=== PATIENT | male | born 1960 | race Caucasian/White ===

== ENCOUNTER 2019-10-07 09:42 | Outpatient (CLI) | payer OTHER, SELFPAY ==
--- NOTE | 2019-10-07 10:15 | US_ITS ---
WS: [id number] RIGHT UPPER QUADRANT ULTRASOUND HISTORY: RECURRENT PANCREATITIS COMPARISON: None available. Liver: 12.2 cm in length. Normal size and echogenicity with no intrahepatic dilatation. No mass. Gallbladder: Normally distended gallbladder with no stones or wall thickening. CBD: 0.3 cm Pancreas: Normal size and echogenicity. Right kidney: 10.2 cm in length. Normal echogenicity with no mass or hydronephrosis. Aorta and IVC: Unremarkable. No ascites. US/US gall bladder [id number] IMPRESSION: Normal RIGHT upper quadrant ultrasound.
--- NOTE | 2019-10-07 11:00 | MR_ITS ---
WS: [id number] MRCP (MAGNETIC RESONANCE CHOLANGIOPANCREATOGRAPHY) HISTORY: Recurrent pancreatitis. Abdominal pain. COMPARISON: RIGHT upper quadrant ultrasound 10/07/2019. TECHNIQUE: Multiple sequences are performed to evaluate the intra and extrahepatic ducts. Normally distended gallbladder. No filling defects are evident. Common bile duct is well visualized t hroughout its course to the pancreas. Maximum diameter of 5.9 mm. Normal tapering through the ampulla . Cystic duct is also normal size. Common hepatic duct and central biliary ducts are normal. Spleen is not enlarged. Portal vein is patent. No liver mass. No ascites or pleural fluid. Pancreas i s normal. No evidence for pancreatitis. No pseudocyst or pancreatic duct dilatation. MR/MR MRCP [id number] IMPRESSION: 1. Normal MRCP. 2. No intrahepatic or extrahepatic duct dilatation. 3. Normal gallbladder. 4. No pancreatitis.
--- NOTE | 2019-10-07 11:32 | USCV_ITS ---
Lorenzo Nunn Age: 58 Gender: M : 1960 Exam Date: 10/07/2019 11:58 Ordering Phys: Ryan Lew DO Technologist: Jhon Calvillo Exam Location: [facility] [place]_ Indication: LT SIDE BRUIT Risk Factors: Smoker Previous Vascular Surgery: None Right Brachial BP: / Left Brachial BP: / Right Left Velocity (cm/s) Spectral Plaque Velocity (cm/s) Spectral Plaque Syst/Diast Broadening Syst/Diast Broadening 61.70/ 9.90 Prox CCA 57.30 / 12.00 44.40/ 9.40 Mid CCA 64.90 / 14.50 37.20/ 8.50 Distal CCA 50.40 / 10.30 55.50/ 11.10 Prox ICA 59.80 / 17.10 61.50/ 17.10 Mid ICA 66.70 / 18.80 95.70/ 29.90 Distal ICA 70.10 / 20.50 89.70 ECA 74.30 1.55 ICA/CCA 1.08 Antegrade Vertebral Antegrade 59.00/ 13.70 cm/s 41.00/ 12.00 cm/s Bi Subclavian Tri 73.50 67.50 FINDINGS No significant elevation of systolic or diastolic velocities. Waveforms are normal. No significant amount of calcified plaque or intimal thickening identified. CONCLUSIONS Normal carotid doppler ultrasound. Dr. Ирина Irwin DO (Electronically Signed) Final Date: 07 October 2019 16:12 S
== END 2019-10-07 09:43 | disposition home or self-care (01) ==
LOC: RAD 09:45
PROVIDERS: PCP Emergency Medicine Emergency Medical Services; Visit Provider Emergency Medicine Emergency Medical Services
DX: K85.90 Acute pancreatitis without necrosis or infection, unspecified (principal); R07.9 Chest pain, unspecified; R09.89 Other specified symptoms and signs involving the circulatory and respiratory systems
CPT/HCPCS: 74181; 76705; 93880

== ENCOUNTER 2019-12-25 01:53 | Emergency (ER) | payer OTHER, SELFPAY ==
[2019-12-25 02:04] VITALS: BP 146/91; PULSE 68; RESP 20; TEMP 36.8; O2SAT 98; BMI 30.5
--- NOTE | 2019-12-25 04:03 | XRR_ITS ---
PROCEDURE INFORMATION: Exam: XR Left Hand Exam date and time: 12/25/2019 7:10 AM Age: 59 years old Clinical indication: Injury or trauma; Fall; Initial encounter; Dislocation; Severity not specified; Left; Middle finger; Injury date: 12/25/2019 TECHNIQUE: Imaging protocol: XR Left hand. Views: 3 or more views. COMPARISON: No relevant prior studies available. FINDINGS: Bones/joints: No fracture. Currently no dislocation. Soft tissues: There is soft tissue swelling involving the middle finger with what appears to be soft tissue gas between the 3rd and 4th metacarpophalangeal joints. Tiny metallic soft tissue foreign body in the ring finger near the proximal interphalangeal joint. XR/XR hand LT min 3V* [id number] IMPRESSION: 1. No acute fracture or dislocation. 2. Soft tissue swelling and potential soft tissue gas. Any laceration?
[2019-12-25 05:06] VITALS: RESP 16
[2019-12-25] MEDS: fentaNYL 50 mcg/mL INJ 2mL 100 MCG IVP (05:06)
[2019-12-25] MEDS: LORazepam 2 mg/mL INJ 1 mL IVP (05:07)
[2019-12-25 05:09] VITALS: BP 117/67; PULSE 54; RESP 20; O2SAT 90
[2019-12-25 06:01] VITALS: BP 136/77; PULSE 52; RESP 15; O2SAT 100
[2019-12-25] MEDS: lidocaine 1% INJ 20 mL INJECTION (06:47)
[2019-12-25] MEDS: oxyCODONE-APAP 5-325 mg Tablet 1 TAB PO ×2 (08:25→08:26)
[2019-12-25 08:31] VITALS: BP 133/86; PULSE 57; RESP 16; O2SAT 97
--- NOTE | 2019-12-25 21:26 | W.ED.EXTPRO ---
HPI - Extremity Problem General: Chief complaint: Extremity Injury, Upper Stated complaint: left hand lac Time Seen by Provider: 12/25/19 04:24 History of Present Illness: HPI Narrative: 59-year-old male who was trying to get a pig back in the pin, when he injured his left hand, with it being pulled, and cutting it on barbed wire he thinks. He had presented to an outside hospital, and when told that he needed to have an injection, and have the joint reduced and laceration repaired, he decided to leave AGAINST MEDICAL ADVICE there, and presented here. MD Complaint: extremity pain Onset (ago): hour(s) Associated symptoms: Deny chest pain or fever(s) Review of Systems Const: Denies: fever(s) or chills Eyes: Denies: change in vision Card: Denies: chest pain or palpitations Resp: Denies: dyspnea GI: Reports: nausea; Denies: abdominal pain or vomiting Musc: Reports: joint pain Neuro: Reports: numbness in extremities PFS ED PFSH: Medical History (Updated 12/25/19 @ 07:31 by Jose Florian DO) Elevated PSA Erectile disorder, generalized, mild Gastro-esophageal reflux disease without esophagitis History of colon polyps History of upper gastrointestinal bleeding Major depressive disorder, recurrent, unspecified Palmar fascial fibromatosis [dupuytren] Panic disorder Surgical History History of arthroplasty of knee History of colonoscopy 01/19/2019-REPEAT IN 3 YEARS History of nasal septoplasty History of shoulder surgery Family History Other Cancer Diabetes Hypertension Social History Smoking and tobacco status: current every day smoker Alcohol intake: current Household members: spouse Housing: House Marital status: History of recent travel: No Current gender identity: Male Physical Exam Const: COMMON NORMALS: no acute distress EXAM LIMITATIONS: altered mental status (Mildly intoxicated) GENERAL APPEARANCE: in distress and odor of alcohol detected ORIENTATION/CONSCIOUSNESS: Yes awake, Yes oriented to person, Yes oriented to place and Yes oriented to time Chest: COMMONS NORMALS: normal inspection of the chest Resp: COMMON NORMALS: normal respiratory effort, No retractions, No use of accessory muscles and clear to auscultation bilaterally AUSCULTATION: clear to auscultation bilaterally Cardio: COMMON NORMALS: regular rhythm RHYTHM: regular rhythm HEART SOUNDS: no murmurs Extremity: NARRATIVE EXTREMITY EXAM: Left third finger deformity, with laceration to the volar surface near the PIP. Tendon is visible, but does appear intact. On testing full flexion is noted of the DIP independent of the PIP. PIP flexion is also noted to be intact. Bleeding controlled. Neuro: SENSORIUM/ORIENTATION: Yes oriented to person, Yes oriented to place and Yes oriented to time Procedures Laceration Laceration 1: Site: hand (Left ring finger) Side (If applicable): left Size (cm): 2.5 Description: linear Depth: simple, single layer Pre-repair: wound explored, irrigated extensively and deep structures intact Skin layer closed with: nylon Size (cm): 4-0 Number of sutures: 5 Technique: simple, interrupted Orthopedic Joint Reduction Joint #1: Side: left Joint Reduction Location: finger (Ring finger PIP) Analgesia: nerve block Local Anesthesia: lidocaine 1% and bupivacaine 0.25% Amount of anesthesic used (mL): 6 Technique used: traction/counter-traction Post-reduction neuro exam: intact Post-reduction vascular: intact Post Reduction X-Ray Obtained: Yes Post Reduction X-Ray Results: reduced Splint Applied: Yes Patient Tolerated Procedure: well and no complications Course Vital Signs: Vital signs: Vital Signs Temperature 98.3 F 12/25/19 02:04 Pulse Rate 57 L 12/25/19 08:31 Respiratory Rate 16 12/25/19 08:31 Blood Pressure 133/86 12/25/19 08:31 Pulse Oximetry 97 12/25/19 08:31 MDM - Extremity (Nontraumatic) [facility] Narrative: Medical decision making narrative: Left ring finger PIP is reduced appropriately, postreduction film confirms. Patient has intact flexion of both flexor digitorum fundus and superficialis on exam. Tendon is examined and appears taut. Wound is closed. He was given Ancef here. He says his tetanus is up-to-date. The patient's finger is placed in an extension block splint compatible with PIP dislocation treatment. Discharge Plan Discharge Patient Disposition: Home, Self-Care Clinical Impression: Dislocation of finger Qualifiers: Encounter type: initial encounter Qualified Code(s): S63.259A - Unspecified dislocation of unspecified finger, initial encounter Laceration of finger Qualifiers: Encounter type: initial encounter Finger: middle finger Damage to nail status: without damage Foreign body presence: without foreign body Laterality: left Qualified Code(s): S61.213A - Laceration without foreign body of left middle finger without damage to nail, initial encounter Condition: Stable Prescriptions: New Percocet 5-325 mg tablet 1 tab PO Q6H PRN (Reason: pain) Qty: 10 RF: 0 No Action amlodipine 5 mg tablet 5 mg PO DAILY RF: 0 losartan 25 mg tablet 25 mg PO DAILY RF: 0 pantoprazole 40 mg tablet,delayed release (DR/EC) 40 mg PO DAILY RF: 0 Discharge Orders: Discharge Order (Routine); Ordered 12/25/19 Ordered By: Jose Florian Referrals: Ryan Lew DO [Primary Care Provider] - Andrew Engle MD [Physician] - 4-7 days Discharge Diet: Usual diet Discharge Activity: Limit activity as instructed Patient Instructions: Finger Laceration (ED), Finger Dislocation (ED) Activity Restrictions/Additional Instructions: Call the orthopedic clinic Friday for a follow-up appointment. Stay in your splint until evaluated by them. Return for increasing swelling, drainage, fever, other concerning symptoms. Discharge Date/Time: 12/25/19 08:37 Coding Level of Care Code ED [employer] for Terrie Calhoun
--- NOTE | 2019-12-28 10:53 | DCPLANNER ---
Addendum entered by Marah Dover 12/28/19 11:07: Patient has [employer] [facility], case management specialist called [facility], let her know that patient was seen in the ED and that patient needs a referral to ortho. The referral has been placed, no appointment at this time. Original Note: purchasing manager had message to schedule a follow up appointment for patient with ortho. purchasing manager called the ortho clinic, spoke with Pat, gave clinic patients information. purchasing manager was told that patients information would be printed and reviewed. Clinic will call patient with appointment information.
--- NOTE | 2019-12-30 08:35 | DCPLANNER ---
Patient has a follow up appointment scheduled for Saturday, January 04, [address] at 9:[address] Engle. Clinic will call patient with appointment information.
--- NOTE | 2020-01-05 15:16 | DCPLANNER ---
Patient did attend appointment scheduled for 01.04.20 with ortho.
== END 2019-12-25 08:37 | disposition home or self-care (01) ==
PROVIDERS: Emergency Provider Emergency Medicine; PCP Emergency Medicine Emergency Medical Services
DX: S61.213A Laceration without foreign body of left middle finger without damage to nail, initial encounter (principal); S61.215A Laceration without foreign body of left ring finger without damage to nail, initial encounter; S63.285A Dislocation of proximal interphalangeal joint of left ring finger, initial encounter; W26.8XXA Contact with other sharp object(s), not elsewhere classified, initial encounter; F17.210 Nicotine dependence, cigarettes, uncomplicated
CPT/HCPCS: 12001; 12345; 26770; 73130; 96365; 96375; 99283; 99284; J0690; J2001; J2060; J3010; J3490

== ENCOUNTER → 2020-01-04 09:41 | Outpatient (BNVA) | payer OTHER, SELFPAY | PROVIDERS: PCP Emergency Medicine Emergency Medical Services; Referring Provider Emergency Medicine; Visit Provider Orthopaedic Surgery | DX: S61.213A Laceration without foreign body of left middle finger without damage to nail, initial encounter (principal); S63.259A Unspecified dislocation of unspecified finger, initial encounter; X58.XXXA Exposure to other specified factors, initial encounter | CPT/HCPCS: 73130 ==

== ENCOUNTER 2020-02-15 10:26 | Outpatient (RCR) | payer OTHER, SELFPAY | END 2020-02-21 23:59 | disposition home or self-care (01) | LOC: SOT 10:26 | PROVIDERS: PCP Emergency Medicine Emergency Medical Services; Referring Provider Emergency Medicine Emergency Medical Services; Visit Provider Emergency Medicine Emergency Medical Services | DX: S63.259D Unspecified dislocation of unspecified finger, subsequent encounter (principal) | CPT/HCPCS: 97110; 97165 ==

== ENCOUNTER 2020-02-22 06:00 | Outpatient (RCR) | payer OTHER, SELFPAY | END 2020-03-22 23:59 | disposition home or self-care (01) | LOC: SOT 06:00 | PROVIDERS: PCP Emergency Medicine Emergency Medical Services; Referring Provider Emergency Medicine Emergency Medical Services; Visit Provider Emergency Medicine Emergency Medical Services | DX: S63.259D Unspecified dislocation of unspecified finger, subsequent encounter (principal) | CPT/HCPCS: 97035; 97110 ==

== ENCOUNTER 2020-03-23 06:00 | Outpatient (RCR) | payer OTHER, SELFPAY | END 2020-04-22 23:59 | disposition home or self-care (01) | LOC: SOT 06:00 | PROVIDERS: PCP Emergency Medicine Emergency Medical Services; Referring Provider Emergency Medicine Emergency Medical Services; Visit Provider Emergency Medicine Emergency Medical Services | DX: S63.259D Unspecified dislocation of unspecified finger, subsequent encounter (principal) | CPT/HCPCS: 97035; 97110 ==

== ENCOUNTER → 2020-05-01 11:56 | Outpatient (BNVA) | payer OTHER, SELFPAY | PROVIDERS: PCP Emergency Medicine Emergency Medical Services; Visit Provider Orthopaedic Surgery | DX: M65.342 Trigger finger, left ring finger (principal); M65.332 Trigger finger, left middle finger; M79.642 Pain in left hand | CPT/HCPCS: 73130 ==

== ENCOUNTER 2020-08-14 05:20 | Emergency (ER) | payer OTHER, SELFPAY ==
[2020-08-14] VITALS (7 sets, daily range): BP systolic 114–129; BP diastolic 66–82; PULSE 55–66; RESP 16–18; TEMP 36.9; O2SAT 92–99; BMI 30.5
--- NOTE | 2020-08-14 05:26 | W.ED.FALL ---
Documented by User: Jose Florian DO 08/14/20 06:13 HPI - Fall General: Chief Complaint: Fall Stated Complaint: FALL Time Seen by Provider: 08/14/20 05:22 History of Present Illness: HPI Narrative: 59-year-old male presents to the ER this morning after 2 falls. The first was a week ago on Friday when he slipped on the ice. The second was last evening, when he slipped on/and ice again. This time he injured his right hip and pelvis, is having trouble bearing weight, and is having significant pain from the posterior pelvis radiating into the right groin. He denies any significant low back pain or tenderness. He did bump his forehead when he fell as well and has some swelling. He did not lose consciousness. He was able to bear weight, although with significant pain with a walker. MD complaint: fall Onset (ago): hour(s) Fall from: standing Fall witnessed: no Place fall occurred: home Loss of consciousness: None Prolonged down time: no Symptoms prior to fall: none Context: tripped/slipped Location of injury: head and pelvis Severity: moderate Quality: sharp and stabbing Associated symptoms-after fall: Reports difficulty walking; Denies chest pain, confusion, headache(s), lightheadedness or neck pain Review of Systems Const: Denies: fever(s) Card: Denies: chest pain or lightheadedness Resp: Denies: dyspnea Musc: Denies: neck pain Neuro: Reports: difficulty walking; Denies: headache(s) or confusion PFS ED PFSH: Medical History (Updated 08/14/20 @ 09:39 by Chuckie Miramontes DO) Elevated PSA Erectile disorder, generalized, mild Gastro-esophageal reflux disease without esophagitis History of colon polyps History of upper gastrointestinal bleeding Major depressive disorder, recurrent, unspecified Palmar fascial fibromatosis [dupuytren] Panic disorder Surgical History History of arthroplasty of knee History of colonoscopy 01/19/2019-REPEAT IN 3 YEARS History of nasal septoplasty History of shoulder surgery Family History Other Cancer Diabetes Hypertension Social History Smoking and tobacco status: current every day smoker Alcohol intake: current Household members: spouse Housing: House Marital status: History of recent travel: No Current gender identity: Male Physical Exam Const: COMMON NORMALS: no acute distress HENMT: COMMON NORMALS: Normal external nose present HEAD & SCALP: contusion (Small area of ecchymosis and swelling to the right frontal forehead) FACE & SINUS: face symmetric NOSE: Normal external nose present GENERAL EAR: hearing grossly impaired (Chronic hearing loss) Eye: COMMON NORMALS: Equal, round and reactive pupils present and EOMs intact bilaterally PUPIL: Yes Equal, round and reactive pupils present Chest: COMMONS NORMALS: normal inspection of the chest Resp: COMMON NORMALS: normal respiratory effort, No retractions, No use of accessory muscles and clear to auscultation bilaterally AUSCULTATION: clear to auscultation bilaterally Cardio: COMMON NORMALS: regular rate and regular rhythm; negative for No murmurs present (Cardio) RATE: regular rate RHYTHM: regular rhythm GI: COMMON NORMALS: Normal to inspection, nondistended, normoactive bowel sounds present, Soft to palpation and non-tender PALPATION: Yes Soft to palpation Back/Pelvis: LUMBAR SPINE/LOWER BACK: Yes normal to inspection, No lumbar spinal tenderness and No paraspinal muscle tenderness SACROILIAC JOINTS: Yes SI joint(s) abnormal SI joint details: tender to palpation (Right) Extremity: NARRATIVE EXTREMITY EXAM: Exam of the right lower extremity reveals tenderness over the anterior right hip as well as the posterior right hip. There is pain on logroll testing. There is pain with passive flexion of the hip. All localized to the groin. Course Vital Signs: Vital signs: Vital Signs Temperature 98.4 F 08/14/20 05:20 Pulse Rate 60 08/14/20 07:30 Respiratory Rate 17 08/14/20 07:00 Blood Pressure 129/82 08/14/20 08:00 Pulse Oximetry 92 08/14/20 07:30 MDM - Fall MDM Narrative: Medical decision making narrative: X-rays of the right hip with pelvis do not show an overt fracture. There are some cortical irregularity of the right femoral neck and acetabular rim that is mildly suspicious given the amount of pain the patient has with movement. Because of this, we will CT the hip and pelvis. Also because of the head injury with swelling, will CT the patient's head. Patient will be checked out to Dr. Miramontes at shift change for follow-up on the studies and disposition. Lab Data: Labs: Lab Results 08/14/20 08/14/20 08/14/20 Range/Units 05:23 05:23 05:23 WBC 7.0 (4.0-10.0) 10^3/ uL RBC 4.86 (4.1-5.3) 10^6/u L Hgb 16.3 (11.7-16.6) g/dL Hct 47.8 (42.0-52.0) % MCV 98.4 H (80-94) fL MCH 33.5 (28.0-34.0) pg MCHC 34.1 (30.0-36.0) g/dL RDW 14.0 (12.1-15.1) % Plt Count 246 (130-400) 10^3/c mm MPV 9.5 (7.4-10.4) fL Neut % (Auto) 58.6 % Lymph % (Auto) 30.2 % [place] % (Auto) 9.6 % Eos % (Auto) 1.1 % Baso % (Auto) 0.4 % Neut # (Auto) 4.09 (1.8-7.7) 10^3/u L Lymph # (Auto) 2.1 (0.8-4.8) 10^3/u L [place] # (Auto) 0.7 (0.2-0.9) 10^3/u L Eos # (Auto) 0.1 (0.0-0.8) 10^3/u L Baso # (Auto) 0.0 (0.0-0.1) 10^3/u L Nucleated RBC % (a uto) 0 % Nucleated RBCs # 0.0 /100WBC PT 15.00 H (12.1-14.9) SECO NDS INR 1.14 (0.8-1.2) APTT 30.2 (23.9-36.7) SECO NDS Sodium 134 L (136-145) mmol/L Potassium 3.1 L (3.5-5.1) mmol/L Chloride 92 L (98-107) mmol/L Carbon Dioxide 29 (22-29) mmol/L Anion Gap 16.1 (5-19) BUN 8 (8-23) mg/dL Creatinine 0.9 (0.7-1.2) mg/dL GFR Calculation 86.1 L (90-130) mL/min Glucose 106 (65-115) mg/dL Calculated Osmolal ity 277 L (285-295) mOsm/k g Calcium 9.0 (8.5-10.5) mg/dL Total Bilirubin 0.6 (0.15-1.2) mg/dL AST 19 (0-40) U/L ALT 12 (0-41) U/L Alkaline Phosphata se 81 (40-130) IU/L Total Protein 8.5 (6.6-8.7) g/dL Albumin 4.5 (3.5-5.2) g/dL Globulin 4.0 (1.3-4.6) g/dL Urine Color (Yellow) Urine Appearance (CLEAR) Urine pH (5-7) Ur Specific Gravit y (1.005-1.030) Urine Protein (Negative) Urine Glucose (UA) (Normal) Urine Ketones (Negative) Urine Blood (Negative) Urine Nitrate (Negative) Urine Bilirubin (Negative) Urine Urobilinogen (Negative) mg/dL Ur Leukocyte Cathleen ase (Negative) 08/14/20 Range/Units 08:15 WBC (4.0-10.0) 10^3/ uL RBC (4.1-5.3) 10^6/u L Hgb (11.7-16.6) g/dL Hct (42.0-52.0) % MCV (80-94) fL MCH (28.0-34.0) pg MCHC (30.0-36.0) g/dL RDW (12.1-15.1) % Plt Count (130-400) 10^3/c mm MPV (7.4-10.4) fL Neut % (Auto) % Lymph % (Auto) % [place] % (Auto) % Eos % (Auto) % Baso % (Auto) % Neut # (Auto) (1.8-7.7) 10^3/u L Lymph # (Auto) (0.8-4.8) 10^3/u L [place] # (Auto) (0.2-0.9) 10^3/u L Eos # (Auto) (0.0-0.8) 10^3/u L Baso # (Auto) (0.0-0.1) 10^3/u L Nucleated RBC % (a uto) % Nucleated RBCs # /100WBC PT (12.1-14.9) SECO NDS INR (0.8-1.2) APTT (23.9-36.7) SECO NDS Sodium (136-145) mmol/L Potassium (3.5-5.1) mmol/L Chloride (98-107) mmol/L Carbon Dioxide (22-29) mmol/L Anion Gap (5-19) BUN (8-23) mg/dL Creatinine (0.7-1.2) mg/dL GFR Calculation (90-130) mL/min Glucose (65-115) mg/dL Calculated Osmolal ity (285-295) mOsm/k g Calcium (8.5-10.5) mg/dL Total Bilirubin (0.15-1.2) mg/dL AST (0-40) U/L ALT (0-41) U/L Alkaline Phosphata se (40-130) IU/L Total Protein (6.6-8.7) g/dL Albumin (3.5-5.2) g/dL Globulin (1.3-4.6) g/dL Urine Color Yellow (Yellow) Urine Appearance Clear (CLEAR) Urine pH 5 (5-7) Ur Specific Gravit y 1.010 (1.005-1.030) Urine Protein Neg (Negative) Urine Glucose (UA) Norm (Normal) Urine Ketones Negative (Negative) Urine Blood Neg (Negative) Urine Nitrate Negative (Negative) Urine Bilirubin Neg (Negative) Urine Urobilinogen Norm (Negative) mg/dL Ur Leukocyte Cathleen ase Negative (Negative) Discharge Plan Discharge Patient Disposition: Home Clinical Impression: Fall, Retroperitoneal bleed Condition: Stable Prescriptions: New tizanidine 4 mg capsule 4 mg PO Q6H PRN (Reason: muscle spasticity) Qty: 20 RF: 0 No Action amlodipine 5 mg tablet 5 mg PO DAILY RF: 0 losartan 25 mg tablet 25 mg PO DAILY RF: 0 pantoprazole 40 mg tablet,delayed release (DR/EC) 40 mg PO DAILY RF: 0 Percocet 5-325 mg tablet 1 tab PO Q6H PRN (Reason: pain) Qty: 10 RF: 0 Discharge Orders: Discharge ED (Routine); Ordered 08/14/20 Ordered By: Chuckie Miramontes Referrals: Ryan Lew DO [Primary Care Provider] - Discharge Diet: Usual diet Discharge Activity: Increase activity as tolerated Patient Instructions: Opioid Safety Activity Restrictions/Additional Instructions: With your primary care doctor or with the walk-in clinic tomorrow. Return if you have any lightheadedness dizziness or worsening back pain. Sign Out Sign Out Data: Patient Sign Out occurred on 08/14/20 at 07:01. Patient's care was discussed, and care was transferred from to Chuckie Miramontes DO. Coding Level of Care Code ED Technical Publications Writer for Chg Fwd Exam Comprehensive Documented by User: Chuckie Miramontes DO 08/14/20 09:47 HPI - Fall General: Chief Complaint: Fall Stated Complaint: FALL Time Seen by Provider: 08/14/20 05:22 [facility] ED PFSH: Medical History (Updated 08/14/20 @ 09:39 by Chuckie Miramontes DO) Elevated PSA Erectile disorder, generalized, mild Gastro-esophageal reflux disease without esophagitis History of colon polyps History of upper gastrointestinal bleeding Major depressive disorder, recurrent, unspecified Palmar fascial fibromatosis [dupuytren] Panic disorder Surgical History History of arthroplasty of knee History of colonoscopy 01/19/2019-REPEAT IN 3 YEARS History of nasal septoplasty History of shoulder surgery Family History Other Cancer Diabetes Hypertension Social History Smoking and tobacco status: current every day smoker Alcohol intake: current Household members: spouse Housing: House Marital status: History of recent travel: No Current gender identity: Male Course Vital Signs: Vital signs: Vital Signs Temperature 98.4 F 08/14/20 05:20 Pulse Rate 60 08/14/20 07:30 Respiratory Rate 17 08/14/20 07:00 Blood Pressure 129/82 08/14/20 08:00 Pulse Oximetry 92 08/14/20 07:30 MDM - Fall MDM Narrative: Medical decision making narrative: There assumed a change of shift there is concern about right hip pain radiating to his back CT of his hip and pelvis showed a retroperitoneal bleed. Full CT abdomen and pelvis was done showed a mild intramuscular retroperitoneal bleed without significant layering or hematocrit sign. The hemoglobin is stable slightly elevated even. Patient's initial fall was over a week ago. We will discharge him home he already has Percocet that he has been prescribed previously for pain he can use that gave him tizanidine to use as well recheck hemoglobin tomorrow either with his primary care or at the walk-in clinic return if has any worsening problems lightheadedness dizziness or any orthostasis. Lab Data: Labs: Lab Results 08/14/20 08/14/20 08/14/20 Range/Units 05:23 05:23 05:23 WBC 7.0 (4.0-10.0) 10^3/ uL RBC 4.86 (4.1-5.3) 10^6/u L Hgb 16.3 (11.7-16.6) g/dL Hct 47.8 (42.0-52.0) % MCV 98.4 H (80-94) fL MCH 33.5 (28.0-34.0) pg MCHC 34.1 (30.0-36.0) g/dL RDW 14.0 (12.1-15.1) % Plt Count 246 (130-400) 10^3/c mm MPV 9.5 (7.4-10.4) fL Neut % (Auto) 58.6 % Lymph % (Auto) 30.2 % [place] % (Auto) 9.6 % Eos % (Auto) 1.1 % Baso % (Auto) 0.4 % Neut # (Auto) 4.09 (1.8-7.7) 10^3/u L Lymph # (Auto) 2.1 (0.8-4.8) 10^3/u L [place] # (Auto) 0.7 (0.2-0.9) 10^3/u L Eos # (Auto) 0.1 (0.0-0.8) 10^3/u L Baso # (Auto) 0.0 (0.0-0.1) 10^3/u L Nucleated RBC % (a uto) 0 % Nucleated RBCs # 0.0 /100WBC PT 15.00 H (12.1-14.9) SECO NDS INR 1.14 (0.8-1.2) APTT 30.2 (23.9-36.7) SECO NDS Sodium 134 L (136-145) mmol/L Potassium 3.1 L (3.5-5.1) mmol/L Chloride 92 L (98-107) mmol/L Carbon Dioxide 29 (22-29) mmol/L Anion Gap 16.1 (5-19) BUN 8 (8-23) mg/dL Creatinine 0.9 (0.7-1.2) mg/dL GFR Calculation 86.1 L (90-130) mL/min Glucose 106 (65-115) mg/dL Calculated Osmolal ity 277 L (285-295) mOsm/k g Calcium 9.0 (8.5-10.5) mg/dL Total Bilirubin 0.6 (0.15-1.2) mg/dL AST 19 (0-40) U/L ALT 12 (0-41) U/L Alkaline Phosphata se 81 (40-130) IU/L Total Protein 8.5 (6.6-8.7) g/dL Albumin 4.5 (3.5-5.2) g/dL Globulin 4.0 (1.3-4.6) g/dL Urine Color (Yellow) Urine Appearance (CLEAR) Urine pH (5-7) Ur Specific Gravit y (1.005-1.030) Urine Protein (Negative) Urine Glucose (UA) (Normal) Urine Ketones (Negative) Urine Blood (Negative) Urine Nitrate (Negative) Urine Bilirubin (Negative) Urine Urobilinogen (Negative) mg/dL Ur Leukocyte Cathleen ase (Negative) 08/14/20 Range/Units 08:15 WBC (4.0-10.0) 10^3/ uL RBC (4.1-5.3) 10^6/u L Hgb (11.7-16.6) g/dL Hct (42.0-52.0) % MCV (80-94) fL MCH (28.0-34.0) pg MCHC (30.0-36.0) g/dL RDW (12.1-15.1) % Plt Count (130-400) 10^3/c mm MPV (7.4-10.4) fL Neut % (Auto) % Lymph % (Auto) % [place] % (Auto) % Eos % (Auto) % Baso % (Auto) % Neut # (Auto) (1.8-7.7) 10^3/u L Lymph # (Auto) (0.8-4.8) 10^3/u L [place] # (Auto) (0.2-0.9) 10^3/u L Eos # (Auto) (0.0-0.8) 10^3/u L Baso # (Auto) (0.0-0.1) 10^3/u L Nucleated RBC % (a uto) % Nucleated RBCs # /100WBC PT (12.1-14.9) SECO NDS INR (0.8-1.2) APTT (23.9-36.7) SECO NDS Sodium (136-145) mmol/L Potassium (3.5-5.1) mmol/L Chloride (98-107) mmol/L Carbon Dioxide (22-29) mmol/L Anion Gap (5-19) BUN (8-23) mg/dL Creatinine (0.7-1.2) mg/dL GFR Calculation (90-130) mL/min Glucose (65-115) mg/dL Calculated Osmolal ity (285-295) mOsm/k g Calcium (8.5-10.5) mg/dL Total Bilirubin (0.15-1.2) mg/dL AST (0-40) U/L ALT (0-41) U/L Alkaline Phosphata se (40-130) IU/L Total Protein (6.6-8.7) g/dL Albumin (3.5-5.2) g/dL Globulin (1.3-4.6) g/dL Urine Color Yellow (Yellow) Urine Appearance Clear (CLEAR) Urine pH 5 (5-7) Ur Specific Gravit y 1.010 (1.005-1.030) Urine Protein Neg (Negative) Urine Glucose (UA) Norm (Normal) Urine Ketones Negative (Negative) Urine Blood Neg (Negative) Urine Nitrate Negative (Negative) Urine Bilirubin Neg (Negative) Urine Urobilinogen Norm (Negative) mg/dL Ur Leukocyte Cathleen ase Negative (Negative) Discharge Plan Discharge Patient Disposition: Home Clinical Impression: Fall, Retroperitoneal bleed Condition: Stable Prescriptions: New tizanidine 4 mg capsule 4 mg PO Q6H PRN (Reason: muscle spasticity) Qty: 20 RF: 0 No Action amlodipine 5 mg tablet 5 mg PO DAILY RF: 0 losartan 25 mg tablet 25 mg PO DAILY RF: 0 pantoprazole 40 mg tablet,delayed release (DR/EC) 40 mg PO DAILY RF: 0 Percocet 5-325 mg tablet 1 tab PO Q6H PRN (Reason: pain) Qty: 10 RF: 0 Discharge Orders: Discharge ED (Routine); Ordered 08/14/20 Ordered By: Chuckie Miramontes Referrals: Ryan Lew DO [Primary Care Provider] - Discharge Diet: Usual diet Discharge Activity: Increase activity as tolerated Patient Instructions: Opioid Safety Activity Restrictions/Additional Instructions: With your primary care doctor or with the walk-in clinic tomorrow. Return if you have any lightheadedness dizziness or worsening back pain. Sign Out Sign Out Data: Patient Sign Out occurred on 08/14/20 at 07:01. Patient's care was discussed, and care was transferred from to Chuckie Miramontes DO. Coding Level of Care Code ED Technical Publications Writer for Chg Fwd Exam Comprehensive
--- NOTE | 2020-08-14 05:42 | XR_ITS ---
WS: [id number] Exam: XR hip RT 2-3V wo/w pel* [id number] Date/Time of Exam: 08/14/2020 5:42 AM Reason For Exam: fall. with AP pelvis plz No acute fracture or dislocation. Mild to moderate DJD. Normal soft tissues. XR/XR hip RT 2-3V wo/w pel* [id number] IMPRESSION: 1. Mild to moderate DJD. No fracture.
--- NOTE | 2020-08-14 06:10 | CTR_ITS ---
PROCEDURE INFORMATION: Exam: CT Pelvis Without Contrast; Skeletal Exam date and time: 08/14/2020 6:14 AM Age: 59 years old Clinical indication: Pain and injury or trauma; Fall; Blunt trauma (contusions or hematomas); Right hip; Injury date: 08/13/20; Injury details: RT hip pain TECHNIQUE: Imaging protocol: Computed tomography images of the pelvis without contrast. Exam focused on the skeletal structures. Radiation optimization: All CT scans at this facility use at least one of these dose optimization techniques: automated exposure control; mA and/or kV adjustment per patient size (includes targeted exams where dose is matched to clinical indication); or iterative reconstruction. COMPARISON: CR XR hip RT 2-3V wo/w pel* [id number] 08/14/2020 5:40 AM RADIATION DOSE METRICS: Total DLP (mGy-cm): 888.04 FINDINGS: Bones/joints: Mild degenerative changes are noted. No acute fracture. No dislocation. Soft tissues: The right psoas muscle is thickened and hyperdense with surrounding infiltration of the retroperitoneal fat. The prostate is enlarged projecting into the bladder base. CT/CT pelvis wo con [id number] IMPRESSION: No fracture or subluxation is seen. Retroperitoneal and right psoas muscle hemorrhage is present. The upper extent is not included on this examination. Radiation Dose CTDIVOL = (mGy): DLP = 888.04 (mGy-cm)
--- NOTE | 2020-08-14 06:10 | CTR_ITS ---
PROCEDURE INFORMATION: Exam: CT Head Without Contrast Exam date and time: 08/14/2020 6:14 AM Age: 59 years old Clinical indication: Injury or trauma; Fall; Blunt trauma (contusions or hematomas) TECHNIQUE: Imaging protocol: Computed tomography of the head without contrast. Radiation optimization: All CT scans at this facility use at least one of these dose optimization techniques: automated exposure control; mA and/or kV adjustment per patient size (includes targeted exams where dose is matched to clinical indication); or iterative reconstruction. COMPARISON: No relevant prior studies available. RADIATION DOSE METRICS: Total DLP (mGy-cm): 744.16 FINDINGS: Brain: Normal. No hemorrhage. Unremarkable white matter. No mass effect. Cerebral ventricles: No ventriculomegaly. Bones/joints: Unremarkable. No acute fracture. Paranasal sinuses: Visualized sinuses are unremarkable. No fluid levels. Mastoid air cells: Visualized mastoid air cells are well aerated. Soft tissues: Right frontal scalp swelling is noted. CT/CT head wo con* [id number] IMPRESSION: No acute intracranial abnormality. Radiation Dose CTDIVOL = (mGy): DLP = 744.16 (mGy-cm)
[2020-08-14] MEDS: morphine 4 mg/mL SDV 1 mL IVP (06:40)
--- NOTE | 2020-08-14 06:53 | CT_ITS ---
WS: [id number] CT ABDOMEN PELVIS TECHNIQUE: Contrast-enhanced CT of the abdomen and pelvis with coronal and sagittal reformatted image s. CLINICAL INFORMATION: abd pain, retroperitoneal bleed COMPARISON: CT pelvis earlier today DLP: 1655.[address] scans at [facility] use at least one of these dose optimization techniques: automat ed exposure control; mA and/or kV adjustment per patient size (includes targeted exams where dose is matched to clinical indication); or iterative reconstruction. FINDINGS: Again seen is the right retroperitoneal hemorrhage involving the right psoas with intramuscular hemor rhage and edema. Small amount of surrounding blood products extend to the level of the right kidney c ephalad and into the right pelvis caudally. This is unchanged in appearance since earlier today. Mild diffuse fatty infiltration of the liver. Normal gallbladder. Normal pancreas. Normal abdominal a holli. Adrenal glands are normal. No hydronephrosis. Normal renal parenchymal enhancement. Shotty adam aortic lymph nodes. Sigmoid diverticulosis. No evidence of acute diverticulitis. Normal appendix. Heterogeneous nodular e nhancement the prostate measuring 4.4 x 5.4 CM. Subsegmental atelectasis in the lung bases. CT/CT abdomen pelvis w con* [id number] IMPRESSION: 1. Right retroperitoneal hematoma with intramuscular psoas hemorrhage. This ex tends from the level of the right kidney into the pelvis. This is stable in ray earance since earlier today. 2. Mild diffuse fatty infiltration liver. 3. Normal renal parenchymal enhancement. No hydronephrosis. 4. Normal caliber abdominal aorta. 5. Enlarged heterogeneous enhancing nodular prostate. Recommend correlation JAVAN Avila Notified Chuckie Miramontes DO at 08/14/2020 9:06 AM.
[2020-08-14 07:57] LABS: Basophils % 0.4 %; Eosinophils # 0.1 10^3/uL (0.0-0.8); Eosinophils % 1.1 %; Hematocrit 47.8 % (42.0-52.0); Hemoglobin 16.3 g/dL (11.7-16.6); Lymphocytes # 2.1 10^3/uL (0.8-4.8); Lymphocytes % 30.2 %; Mean Corpuscular HGB Conc 34.1 g/dL (30.0-36.0); Mean Corpuscular Hemoglobin 33.5 pg (28.0-34.0); Mean Corpuscular Volume 98.4 fL (80-94); Mean Platelet Volume 9.5 fL (7.4-10.4); Monocytes # 0.7 10^3/uL (0.2-0.9); Monocytes % 9.6 %; Neutrophils # 4.09 10^3/uL (1.8-7.7); Neutrophils % 58.6 %; Nucleated Red Blood Cells % 0 %; Platelet Count 246 10^3/cmm (130-400); Red Blood Count 4.86 10^6/uL (4.1-5.3)
[2020-08-14 08:06] LABS: INR 1.14 (0.8-1.2)
[2020-08-14 08:07] LABS: Partial Thromboplastin Time 30.2 SECONDS (23.9-36.7)
[2020-08-14 08:13] LABS: Alanine Aminotransferase 12 U/L (0-41); Albumin Level 4.5 g/dL (3.5-5.2); Alkaline Phosphatase 81 IU/L (40-130); Anion Gap 16.1 (5-19); Aspartate Amino Transferase 19 U/L (0-40); Blood Urea Nitrogen 8 mg/dL (8-23); Carbon Dioxide 29 mmol/L (22-29); Chloride 92 mmol/L (98-107); Glomerular Filtration Rate 86.1 mL/min (90-130); Glucose 106 mg/dL (65-115); Osmolality Calculated 277 mOsm/kg (285-295); Potassium 3.1 mmol/L (3.5-5.1); Sodium 134 mmol/L (136-145); Total Bilirubin 0.6 mg/dL (0.15-1.2); Total Protein 8.5 g/dL (6.6-8.7)
[2020-08-14 08:22] LABS: Add Urine Microscopic? NO
[2020-08-14] MEDS: iohexol 300 mg/mL 100 mL Btl IV (08:29)
[2020-08-14 08:33] LABS: Bilirubin Urine Neg (Negative); Blood Urine Neg (Negative); Glucose Urine UA Norm (Normal); Ketones Urine Negative (Negative); Nitrate Urine Negative (Negative); Protein Urine Neg (Negative); Urine Appearance Clear (CLEAR); Urine Color Yellow (Yellow); Urobilinogen Urine Norm (Negative); pH Urine 5 (5-7)
[2020-08-14 08:34] LABS: Leukocyte Esterase Urine Negative (Negative)
--- NOTE | 2020-08-15 12:02 | DCPLANNER ---
air conditioning manager had message to schedule a follow up appointment for patient to have his labs redrawn. Patient has [facility], case therapist called [facility], with [facility], she stated that she had records and that she would send them to the clinic. air conditioning manager [facility], let clinic know that patient needed blood work done. Clinic stated that they would call patient to have him go the clinic anytime to have his labs redrawn.
== END 2020-08-14 09:42 | disposition home or self-care (01) ==
PROVIDERS: Emergency Provider Family Medicine; PCP Emergency Medicine Emergency Medical Services
DX: K62.5 Hemorrhage of anus and rectum (principal); F17.210 Nicotine dependence, cigarettes, uncomplicated
CPT/HCPCS: 70450; 72192; 73502; 74177; 80053; 81003; 85025; 85610; 85730; 96374; 99283; J2270; Q9967

== ENCOUNTER → 2020-11-06 11:29 | Outpatient (BNVA) | payer OTHER, SELFPAY | PROVIDERS: PCP Emergency Medicine Emergency Medical Services; Referring Provider Emergency Medicine Emergency Medical Services; Visit Provider Specialist | DX: M25.511 Pain in right shoulder (principal); M75.41 Impingement syndrome of right shoulder | CPT/HCPCS: 73030 ==

== ENCOUNTER 2020-11-29 12:20 | Outpatient (CLI) | payer OTHER, SELFPAY ==
--- NOTE | 2020-11-29 13:00 | MR_ITS ---
WS: [id number] MRI RIGHT SHOULDER HISTORY: M75.41 - Impingement syndrome of right shoulder COMPARISON: 11/06/2020 radiographs TECHNIQUE: Multiplanar sequences of the shoulder joint are submitted. Moderate AC joint hypertrophy. Hypertrophic bone formation involving the distal clavicle with encroac hment upon the anterior supraspinatus muscle. There is also impingement upon the rotator cuff interva l secondary to osteophytes at the AC joint. No os acromion. Biceps tendon is in normal position. Increase fluid in the subacromial and subdeltoid bursa. More focal bursal distention anterior to the rotator cuff interval where there is significant impingement from the AC joint. Mildly high riding humeral head. There is moderate impingement upon the supraspinatus tendon over the superior humeral head by the acromial disease. There is significant thinning and fraying along the d istal 3 to 4 cm of the supraspinatus tendon. There is an insertion site tear extending over a width o f approximately 10 mm of the supraspinatus. Very mild atrophy without edema of the supraspinatus musc le. Infraspinatus and subscapularis tendons are intact. No marrow edema or fracture. No labral abnormality. MR/MR shoulder RT wo con* [id number] IMPRESSION: 1. Moderate AC joint osteoarthritis with significant encroachment upon the ant erior supraspinatus muscle, tendon and impingement upon the rotator cuff interv al. 2. Significant narrowing of the acromiohumeral interval secondary to a high ri ding humeral head and acromial osteophyte. Marked encroachment upon the suprasp inatus tendon as it passes over the humeral head. 3. 10 mm insertion site tear of the supraspinatus tendon with mild atrophy of the muscle. 4. Moderate amount of fluid in the subacromial subdeltoid bursa.
== END 2020-11-29 12:21 | disposition home or self-care (01) ==
LOC: RADSHAW 12:21
PROVIDERS: PCP Emergency Medicine Emergency Medical Services; Visit Provider Specialist
DX: M75.41 Impingement syndrome of right shoulder (principal); M19.011 Primary osteoarthritis, right shoulder; M75.101 Unspecified rotator cuff tear or rupture of right shoulder, not specified as traumatic
CPT/HCPCS: 73221

== ENCOUNTER 2021-03-06 15:35 | Outpatient (CLI) | payer OTHER, SELFPAY ==
--- NOTE | 2021-03-06 15:57 | USCV_ITS ---
Lorenzo Nunn Age: 60 Gender: M : 1960 Exam Date: 03/06/2021 16:07 Ordering Phys: Kriss AlmendarezP SECURITY OPERATIONS SPECIALIST Technologist: Shyann Jiang [place]am Location[place] [facility] [place]ication: LLE PAIN AND SWELLING [id number] HISTORY: Lower extremity swelling. Lower extremity pain. PROCEDURES: Venous duplex imaging was performed in only the left lower extremity. The following venous structures were evaluated: common femoral vein, profunda vein, proximal portion of the greater saphenous vein, superficial femoral vein, and the popliteal vein. In addition, the posterior tibial and peroneal trunk were evaluated. Serial compression, augmentation maneuvers, and spectral Doppler flow evaluation were performed. FINDINGS: Normal 2-D Doppler and augmentation and compressibility throughout the lower extremity venous structures. Additional imaging through the proximal calf veins also reveals no thrombus. Limited evaluation of the greater saphenous vein is patent with no thrombus. CONCLUSIONS No DVT left lower extremity. Dr. Ирина Irwin DO (Electronically Signed) Final Date: 07 March 2021 07:56 S
== END 2021-03-06 15:36 | disposition home or self-care (01) ==
PROVIDERS: PCP Emergency Medicine Emergency Medical Services; Visit Provider Nurse Practitioner
DX: M79.605 Pain in left leg (principal); M79.89 Other specified soft tissue disorders
CPT/HCPCS: 93971

== ENCOUNTER → 2021-03-26 14:43 | Outpatient (BNVA) | payer OTHER, SELFPAY | PROVIDERS: PCP Emergency Medicine Emergency Medical Services; Visit Provider Specialist | DX: M19.011 Primary osteoarthritis, right shoulder (principal) | CPT/HCPCS: 73030 ==

== ENCOUNTER → 2021-04-19 13:00 | Outpatient (BNVA) | payer OTHER, SELFPAY | PROVIDERS: PCP Emergency Medicine Emergency Medical Services; Visit Provider Specialist | DX: Z20.822 Contact with and (suspected) exposure to COVID-19 (principal) | CPT/HCPCS: 87635 ==

== ENCOUNTER 2021-04-24 05:32 | Day surgery (SDC) | payer OTHER, SELFPAY ==
[2021-04-23 09:53] VITALS: BMI 29.1
[2021-04-24] VITALS (12 sets, daily range): BP systolic 126–204; BP diastolic 75–109; PULSE 59–78; RESP 15–20; TEMP 36.3–36.9; O2SAT 92–98
[2021-04-24] MEDS: sodium chloride 0.9% 1,000 ML 30 ML IV (06:10)
[2021-04-24] MEDS: acetaminophen 1,000 MG/100 ML PIGGYBACK 400 MG IV (06:14)
[2021-04-24 07:07] LABS: Basophils % 0.6 %; Eosinophils # 0.1 10^3/uL (0.0-0.8); Eosinophils % 1.4 %; Hematocrit 47.8 % (42.0-52.0); Hemoglobin 16.4 g/dL (11.7-16.6); Lymphocytes # 1.8 10^3/uL (0.8-4.8); Lymphocytes % 35.5 %; Mean Corpuscular HGB Conc 34.3 g/dL (30.0-36.0); Mean Corpuscular Hemoglobin 33.7 pg (28.0-34.0); Mean Corpuscular Volume 98.2 fl (80-94); Mean Platelet Volume 9.6 fL (7.4-10.4); Monocytes # 0.4 10^3/uL (0.2-0.9); Monocytes % 8.5 %; Neutrophils # 2.78 10^3/uL (1.8-7.7); Neutrophils % 53.8 %; Nucleated Red Blood Cells % 0 %; Platelet Count 248 10^3/cmm (130-400); Red Blood Count 4.87 10^6/uL (4.1-5.3); Red Cell Distribution Width 13.2 % (12.1-15.1); White Blood Count 5.2 10^3/uL (4.0-10.0)
--- NOTE | 2021-04-24 07:35 | W.PM.OPSUD ---
Surgery/Procedure H&P Update DATE OF PROCEDURE: April 24, 2021 DATE H&P PERFORMED: 04/19/21 PREOP DIAGNOSIS: . PLANNED PROCEDURE: Operation Date: 04/24/21 07:00 Proposed Procedures p Acromioplasty right shoulder [id number] M75.100(Right) - Doris Juarez MD s Distal Clavicle Resection(Right) - MD sheela Armstrong Rotator Cuff Repair(Right) - Doris Juarez MD Related Problem List Diagnoses (1) Acromioclavicular joint arthritis: Qualifiers: Laterality: right Qualified Code(s): M19.011 - Primary osteoarthritis, right shoulder (2) Rotator cuff tear: Qualifiers: Rotator cuff tear extent: complete Rotator cuff tear trauma status: traumatic Encounter type: subsequent encounter Laterality: right Qualified Code(s): S46.011D - Strain of muscle(s) and tendon(s) of the rotator cuff of right shoulder, subsequent encounter (3) Impingement syndrome of right shoulder:
[2021-04-24 08:23] LABS: Alanine Aminotransferase 10 U/L (0-41); Albumin Level 3.8 g/dL (3.5-5.2); Alkaline Phosphatase 62 IU/L (40-130); Blood Urea Nitrogen 8 mg/dL (8-23); Calcium 8.8 mg/dL (8.5-10.5); Carbon Dioxide 25 mmol/L (22-29); Chloride 101 mmol/L (98-107); Globulin 2.9 g/dL (1.3-4.6); Glomerular Filtration Rate 114.6 mL/min (90-130); Glucose 96 mg/dL (65-115); Osmolality Calculated 284 mOsm/kg (285-295); Sodium 138 mmol/L (136-145); Total Bilirubin 0.3 mg/dL (0.15-1.2); Total Protein 6.7 g/dL (6.6-8.7)
[2021-04-24 08:25] LABS: Aspartate Amino Transferase 19 U/L (0-40)
[2021-04-24] MEDS: midazolam 1 mg/mL INJ 2 mL 2 MG IVP (08:42)
[2021-04-24] MEDS: fentaNYL 50 mcg/mL INJ 2mL 100 MCG IVP (08:43)
--- NOTE | 2021-04-24 08:57 | ANES.PREANE2 ---
Pre-Anesthetic Assessment Pre-Anesthetic Assessment: Height/Weight: Height 1.83 m Weight 97.522 kg Temp Pulse Resp BP Pulse Ox 98.4 F 61 16 148/86 98 04/24/21 05:52 04/24/21 05:52 04/24/21 05:52 04/24/21 05:52 04/24/21 05:52 Preop Diagnosis: shoulder pain Proposed Procedure: Operation Date: 04/24/21 07:00 Proposed Procedures p Acromioplasty right shoulder [id number] M75.100(Right) - Doris Juarez MD s Distal Clavicle Resection(Right) - Doris Juarez MD s Rotator Cuff Repair(Right) - Doris Juarez MD Familial anesthetic complications: none Was Beta Karime taken within 24 hours: N/A Was Clonidine taken within 24 hours: N/A Last intake: Intake Last Liquid Date 04/23/21 Last Liquid Time 18:30 Last Solid Date 04/23/21 Last Solid Time 18:30 Social: Social History: Tobacco and No alcohol Exam: Pre-Anes Outpt Exam: alert, oriented x 3, clear to auscultation bilaterally and regular rate & rhythm Airway: Cervical ROM: WNL MP: 3 Dentition: Other (no teeth) CV/HEM: CV/HEM: HTN GI: GI: GERD Anesthetic Plan: ASA status: 3 Anesthesia: General and Regional (specify below) Risk of > 500 ml blood loss (7ml/kg in children): No Meds/Allergies Current Medications: Current Medications Generic Name Dose Route Start Last Admin Trade Name Freq PRN Reason Stop Dose Admin Sodium Chloride 1,000 mls @ 30 ml s/hr 04/24/21 05:45 04/24/21 06:10 Sodium Chloride 0.9% IV 04/25/21 05:44 30 mls/hr .Q24H BEBETO Administration PFSH Anesthesia PFSH: Medical History (Updated 04/24/21 @ 07:35 by Doris Juarez MD) Alcohol abuse, uncomplicated Bipolar II disorder Elevated PSA Erectile disorder, generalized, mild Essential (primary) hypertension Gastro-esophageal reflux disease without esophagitis History of colon polyps History of upper gastrointestinal bleeding Major depressive disorder, recurrent, unspecified Palmar fascial fibromatosis [dupuytren] Panic disorder Surgical History History of arthroplasty of knee History of colonoscopy 01/19/2019-REPEAT IN 3 YEARS History of nasal septoplasty History of shoulder surgery Family History Other Cancer Diabetes Hypertension Social History Smoking and tobacco status: current every day smoker Alcohol intake: current Household members: spouse Housing: House Marital status: History of recent travel: No Current gender identity: Male Data Anesthesia CBC & Chem 7: 04/24/21 06:10 04/24/21 07:49 Other Labs: Laboratory Results - last 48 hr 04/24/21 04/24/21 04/24/21 06:10 06:10 07:49 WBC 5.2 RBC 4.87 Hgb 16.4 Hct 47.8 MCV 98.2 H MCH 33.7 MCHC 34.3 RDW 13.2 Plt Count 248 MPV 9.6 Neut % (Auto) 53.8 Lymph % (Auto) 35.5 [place] % (Auto) 8.5 Eos % (Auto) 1.4 Baso % (Auto) 0.6 Neut # (Auto) 2.78 Lymph # (Auto) 1.8 [place] # (Auto) 0.4 Eos # (Auto) 0.1 Baso # (Auto) 0.0 Nucleated RBC % (auto) 0 Nucleated RBCs # 0.0 Sodium Cancelled 138 Potassium Cancelled 4.0 Chloride Cancelled 101 Carbon Dioxide Cancelled 25 Anion Gap Cancelled 16.0 BUN Cancelled 8 Creatinine Cancelled 0.7 GFR Calculation Cancelled 114.6 Glucose Cancelled 96 Calculated Osmolality Cancelled 284 L Calcium Cancelled 8.8 Total Bilirubin Cancelled 0.3 AST Cancelled 19 ALT Cancelled 10 Alkaline Phosphatase Cancelled 62 Total Protein Cancelled 6.7 Albumin Cancelled 3.8 Globulin Cancelled 2.9 Cardiac Studies: No Data to Display
--- NOTE | 2021-04-24 08:58 | ANES.PROC ---
Anesthesia Procedures Procedure/Date: 04/24/21 Nerve Block ^: Nerve Block 1: Main Anesthesia: general anesthesia Time Out Performed: Yes Consent: requested by attending/covering physician, from patient, risks and benefits reviewed and patient agrees to proceed Nerve block location: interscalene (R) Anesthesia monitors applied: pulse oximetry, EKG, BP cuff and oxygen Anesthetic Used: ropivicaine 0.5% and with decadron (4 mg) Amount of anesthesia used (mL): 30 Ultrasound used to: recognize landmarks, visualize and ID brachial plexus and visualize and ID interscalene groove Nerve Stimulator Used?: No Interscalene/Femoral BLK: 2 stimuplex 22 g needle used for position and inplane approach, visualize local anesthetic spread and no vascular puncture identified Injection: neg aspiration of heme Patient Tolerated Procedure: well and no complications Complications: none
[2021-04-24] MEDS: ceFAZolin 1,000 mg SDV 1000 MG IRRIGATION (10:30)
[2021-04-24] MEDS: fentaNYL 50 mcg/mL INJ 2mL IVP ×2 (11:51→11:56)
--- NOTE | 2021-04-24 11:58 | P.OP_ITS ---
Operative Report Date of procedure: April 24, 2021 Pre-op Diagnosis: Right shoulder rotator cuff tear with impingement and AC joint DJD Post-op diagnosis: same Post-op Findings: Significant acromioclavicular joint degenerative osteoarthri tis subacromial impingement insertional site rotator cuff tear in the supraspinatus. Procedure Done: Right shoulder rotator cuff repair with acromioplasty and distal clavicle resection Implants: Biosteon intraline 5.5 mm suture anchor with 2 x #2 Force Fiber Specimens removed/disposition: None Pathology: none sent Surgeon: Doris Juarez Atm Technician: [facility] operating room technicians Anesthesia: General (Intubated, ASA 3 with preoperative regional interscalene block) Estimated blood loss (mL): 100 IV fluids (mL): 1,500 Urine output (mL): 0 Urine output: No [place] Complications: None Findings: Insertional site supraspinatus tendon which matched the MRI description. Significant subacromial impingement. Significant osteoarthritis of the acromioclavicular joint. Condition: stable Disposition: PACU (Then return to same-day surgery for discharge to home) Brief History: This 60-year-old gentleman presented to my office for evaluation of his right shoulder pain initially in October of this year. At that time, the patient states he fell on the ice in July and has had constant pain to his right shoulder since then. He states the pain is severe, which wakes him up from sleep at night. Work-up included x-rays and an MRI. The patient also was unresponsive to conservative measures. MRI demonstrated an insertional site supraspinatus tear with thinning as well as impingement and acromioclavicular joint degenerative osteoarthritis. Treatment discussion was undertaken with the patient. Consents were signed. Questions were answered. Procedure: The patient was brought to the operating theater and underwent general intubated anesthesia per endotracheal tube with a preoperative interscalene block, ASA 3. The patient was placed in a beachchair position and subsequently the right upper extremity was prepped and draped in the usual fashion utilizing DuraPrep. The arm was draped free. A surgical pause was performed prior to commencement of the surgical procedure. At the time of the surgical pause, we confirmed the site and side of surgery as well as administration of appropriate preoperative antibiotics Ancef 2 g. MRI was also reviewed at that time. Following the surgical pause, an incision was made at approximately the level of the acromioclavicular joint extending across the anterolateral corner of the acromion and distally as necessary. Care was taken to avoid injury to the axillary nerve by limiting the distal extent of the incision. Dissection continued through skin and soft tissues using a scalpel. Hemostasis was obtained using electrocautery. Soft tissues were elevated off the acromion. An acromioplasty was then accomplished using a combination of a saw and a power rasp. With this, we were able to remove compression caused by the acromion. The rotator cuff was then evaluated to look for tears. There was noted to be subacromial fluid as well as significant bursitic tissue. This was excised. The rotator cuff was evaluated, and as per MRI description, there was an insertional site supraspinatus tear which was not significantly retracted but was retracted somewhat. There is also thinning along the tear. The rotator cuff tear was evaluated. It was noted that primary repair was possible. The edges were freshened using a scalpel. The reattachment point bony on the humeral head was addressed with a rongeur to prepare a bed for appropriate repair. Repair was accomplished using the [place] Biosteon intraline 5.5 mm suture anchor with 2 times #2 Force Fiber suture. The tear orientation was noted to be both horizontal and vertical. After the rotator cuff had been thus addressed, the shoulder was placed through further range of motion to assure there was no further evidence of rotator cuff tear. The acromioclavicular joint was exposed. A saw was then used to resect the distal clavicle without difficulty. The undersurface of the clavicle was palpated and was slightly further debrided. A power rasp was used to further smooth the area. When this was felt to be adequately resected, the wound was irrigated. Attention was then directed to closure. The wound was irrigated and closure was accomplished with 0 Vicryl in the capsular tissues overlying the acromioclavicular joint area as well as over the acromion and down into the deltoid muscle. 3-0 Monocryl was used to close the subcutaneous tissues followed by 4-0 Monocryl subcuticular closure. This was followed by Dermabond, Steri-Strips, Telfa, and Tegaderm. The patient was placed in a slingshot style sling and was returned to the recovery room in satisfactory condition. The patient will be discharged to home to follow-up with me in the office as scheduled. There were no complications and no specimens. Associated Problem List Diagnoses (1) Acromioclavicular joint arthritis: Qualifiers: Laterality: right Qualified Code(s): M19.011 - Primary osteoarthritis, right shoulder (2) Rotator cuff tear: Qualifiers: Rotator cuff tear extent: complete Rotator cuff tear trauma status: traumatic Encounter type: subsequent encounter Laterality: right Qualified Code(s): S46.011D - Strain of muscle(s) and tendon(s) of the rotator cuff of right shoulder, subsequent encounter (3) Impingement syndrome of right shoulder:
[2021-04-24] MEDS: oxyCODONE-APAP 5-325 mg Tablet 1 TAB PO (12:13)
[2021-04-24] MEDS: ondansetron 2 mg/ML SDV 2 mL 4 MG IVP (12:34)
== END 2021-04-24 13:16 | disposition home or self-care (01) ==
PROVIDERS: PCP Emergency Medicine Emergency Medical Services; Visit Provider Specialist
PROC: (CPT 23130; principal; 2021-04-24 07:00)
PROC: (CPT 23120; 2021-04-24 07:00)
PROC: (CPT 23120; 2021-04-24 07:00)
DX: S46.011D Strain of muscle(s) and tendon(s) of the rotator cuff of right shoulder, subsequent encounter (principal); M25.811 Other specified joint disorders, right shoulder; M75.41 Impingement syndrome of right shoulder; M19.011 Primary osteoarthritis, right shoulder; W00.9XXD Unspecified fall due to ice and snow, subsequent encounter
CPT/HCPCS: 23120; 23420; 36415; 64415; 76942; 80053; 85025; 96365; 96374; 96375; C1713; J0330; J0360; J0690; J1100; J1885; J2250; J2405; J2704; J2710; J2795; J3010; J3490; J7030

== ENCOUNTER 2022-02-16 10:14 | Emergency (ER) | payer OTHER, SELFPAY ==
[2022-02-16 10:23] VITALS: BP 180/110; PULSE 84; RESP 18; TEMP 37.2; O2SAT 99; BMI 29.1
[2022-02-16 10:57] VITALS: BP 146/85; O2SAT 99
[2022-02-16 11:02] LABS: Basophils % 0.6 %; Eosinophils # 0.1 10^3/uL (0.0-0.8); Eosinophils % 0.9 %; Hematocrit 49.7 % (42.0-52.0); Hemoglobin 16.7 g/dL (11.7-16.6); Lymphocytes # 1.1 10^3/uL (0.8-4.8); Lymphocytes % 19.9 %; Mean Corpuscular HGB Conc 33.6 g/dL (30.0-36.0); Mean Corpuscular Hemoglobin 33.4 pg (28.0-34.0); Mean Corpuscular Volume 99.4 fl (80-94); Mean Platelet Volume 9.1 fL (7.4-10.4); Monocytes # 0.4 10^3/uL (0.2-0.9); Monocytes % 7.2 %; Neutrophils # 3.85 10^3/uL (1.8-7.7); Nucleated Red Blood Cells % 0 %; Platelet Count 160 10^3/cmm (130-400); Red Cell Distribution Width 13.3 % (12.1-15.1); White Blood Count 5.4 10^3/uL (4.0-10.0)
[2022-02-16 11:14] LABS: Anion Gap 15.7 (5-19); Blood Urea Nitrogen 7 mg/dL (8-23); Calcium 9.8 mg/dL (8.5-10.5); Carbon Dioxide 28 mmol/L (22-29); Chloride 98 mmol/L (98-107); Glomerular Filtration Rate 75.7 mL/min (90-130); Glucose 86 mg/dL (65-115); Osmolality Calculated 283 mOsm/kg (285-295); Potassium 3.7 mmol/L (3.5-5.1); Sodium 138 mmol/L (136-145)
--- NOTE | 2022-02-16 11:31 | ED_ITS ---
HPI - Skin/Abscess/Foreign Bdy General: Chief complaint: Skin/Abscess/Foreign Body Stated complaint: spider, Burning Time Seen by Provider: 02/16/22 10:30 Source: patient Mode of arrival: ambulatory History of Present Illness: 61-year-old male presents emergency room with a necrotic lesion on the right flank just above the iliac crest at the posterior axillary line there is some purulent drainage present on arrival the nursing staff did clean the wound up before arrived is unable to express any purulent drainage at mucousy eschar in place at the base. Surrounding tissue has erythema its been extremely painful. He has had a similar episode in the past. He is reporting he thinks he was bitten by a spider complaint: insect bite/sting Onset (ago): day(s) Tetanus up to date: yes Severity: moderate Severity scale (1-10): 4 Quality: burning and aching Pain Consistency: constant Relieving factors: none Exacerbating factors: none Associated symptoms: Deny arthralgias, chills, cough, fever(s), itching, myalgias, nausea, rigidity, short of breath or vomiting Treatments prior to arrival: bandages Review of Systems Const: Denies: fever(s), chills, fatigue or malaise ENMT: Denies: throat pain, ear or mastoid pain, nasal discharge or nasal congestion Card: Denies: chest pain, edema, dyspnea on exertion or orthopnea Resp: Denies: dyspnea, productive cough or non-productive cough GI: Denies: nausea or vomiting : Denies: flank pain, dysuria, urinary frequency or urinary urgency Skin/Breast: Reports: rash, erythema, new lesions and changing lesions; Denies: pruritus PFSH ED PFSH: Medical History Alcohol abuse, uncomplicated Bipolar II disorder Elevated PSA Erectile disorder, generalized, mild Essential (primary) hypertension Gastro-esophageal reflux disease without esophagitis History of colon polyps History of upper gastrointestinal bleeding Major depressive disorder, recurrent, unspecified Palmar fascial fibromatosis [dupuytren] Panic disorder Surgical History History of arthroplasty of knee History of colonoscopy 01/19/2019-REPEAT IN 3 YEARS History of nasal septoplasty History of shoulder surgery Family History Other Cancer Diabetes Hypertension Social History Smoking and tobacco status: current every day smoker Alcohol intake: current Household members: spouse Housing: House Marital status: History of recent travel: No Current gender identity: Male Physical Exam Const: GENERAL APPEARANCE: cooperative and comfortable ORIENTATION/CONSCIOUSNESS: Yes awake, Yes oriented to person, Yes oriented to place and Yes oriented to time HENMT: COMMON NORMALS: normocephalic, atraumatic and hearing grossly normal bilaterally HEAD & SCALP: normocephalic and atraumatic Resp: COMMON NORMALS: normal respiratory effort, No retractions, No use of accessory muscles and clear to auscultation bilaterally AUSCULTATION: clear to auscultation bilaterally Cardio: COMMON NORMALS: regular rate, regular rhythm and No murmurs present (Cardio) RATE: regular rate RHYTHM: regular rhythm GI: COMMON NORMALS: Soft to palpation and No hepatosplenomegaly present AU SCULTATION: Yes normoactive bowel sounds PALPATION: Yes Soft to palpation, No Tenderness to palpation present (GI), No Guarding due to palpation present (GI) and Yes No hepatosplenomegaly present Extremity: COMMON NORMALS: normal to inspection, capillary refill normal, no clubbing, cyanosis or edema, no calf tenderness and no pedal edema Neuro: SENSORIUM/ORIENTATION: Yes oriented to person, Yes oriented to place and Yes oriented to time Skin: OTHER: Right hip there is an ulcerated lesion approximately quarter size localized erythema central necrosis no purulent drainage. Course Vital Signs: Vital signs: Vital Signs Temperature 99.0 F 02/16/22 10:23 Pulse Rate 57 L 02/16/22 11:59 Respiratory Rate 18 02/16/22 10:23 Blood Pressure 146/85 02/16/22 11:59 Pulse Oximetry 99 02/16/22 11:59 Oxygen Delivery Me thod 02/16/22 10:57 MDM - Skin/Abscess/Foreign Bdy Medicial Decision Making Topical wound care start oral antibiotics follow-up with general surgery return if worsens wound bandaged Medical Records I reviewed the patient's medical records. Lab Data I reviewed the patient's lab results. : 02/16/22 10:47 02/16/22 10:47 Laboratory Results WBC 5.4 10^3/uL (4.0-10.0) 02/16/22 10:47 RBC 5.00 10^6/uL (4.1-5.3) 02/16/22 10:47 Hgb 16.7 g/dL (11.7-16.6) H 02/16/22 10:47 Hct 49.7 % (42.0-52.0) 02/16/22 10:47 MCV 99.4 fl (80-94) H 02/16/22 10:47 MCH 33.4 pg (28.0-34.0) 02/16/22 10:47 MCHC 33.6 g/dL (30.0-36.0) 02/16/22 10:47 RDW 13.3 % (12.1-15.1) 02/16/22 10:47 Plt Count 160 10^3/cmm (130-400) 02/16/22 10:47 MPV 9.1 fL (7.4-10.4) 02/16/22 10:47 Neut % (Auto) 71.0 % 02/16/22 10:47 Lymph % (Auto) 19.9 % 02/16/22 10:47 [place] % (Auto) 7.2 % 02/16/22 10:47 Eos % (Auto) 0.9 % 02/16/22 10:47 Baso % (Auto) 0.6 % 02/16/22 10:47 Neut # (Auto) 3.85 10^3/uL (1.8-7.7) 02/16/22 10:47 Lymph # (Auto) 1.1 10^3/uL (0.8-4.8) 02/16/22 10:47 [place] # (Auto) 0.4 10^3/uL (0.2-0.9) 02/16/22 10:47 Eos # (Auto) 0.1 10^3/uL (0.0-0.8) 02/16/22 10:47 Baso # (Auto) 0.0 10^3/uL (0.0-0.1) 02/16/22 10:47 Nucleated RBC % (auto) 0 % 02/16/22 10:47 Nucleated RBCs # 0.0 /100WBC 02/16/22 10:47 Sodium 138 mmol/L (136-145) 02/16/22 10:47 Potassium 3.7 mmol/L (3.5-5.1) 02/16/22 10:47 Chloride 98 mmol/L (98-107) 02/16/22 10:47 Carbon Dioxide 28 mmol/L (22-29) 02/16/22 10:47 Anion Gap 15.7 (5-19) 02/16/22 10:47 BUN 7 mg/dL (8-23) L 02/16/22 10:47 Creatinine 1.0 mg/dL (0.7-1.2) 02/16/22 10:47 GFR Calculation 75.7 mL/min (90-130) L 02/16/22 10:47 Glucose 86 mg/dL (65-115) 02/16/22 10:47 Calculated Osmolality 283 mOsm/kg (285-295) L 02/16/22 10:47 Calcium 9.8 mg/dL (8.5-10.5) 02/16/22 10:47 Discharge Plan Discharge Patient Disposition: Home Clinical Impression: Cellulitis, Brown recluse spider bite Condition: Stable Prescriptions: New Bactrim DS 800-160 mg tablet 1 tab PO BID 10 Days Qty: 20 0RF tramadol 50 mg tablet 50 mg PO Q6H PRN (Reason: pain) Qty: 7 0RF No Action doxycycline hyclate 100 mg capsule 100 mg PO BID Qty: 60 1RF Rx Instructions: Take 1 capsule by mouth twice daily for 2 months metronidazole 0.75 % gel 1 applic topical BID Qty: 45 6RF Rx Instructions: Apply thin film to entire face twice daily fluconazole 150 mg tablet 300 mg PO .once weekly 180 Days Qty: 48 0RF amlodipine 5 mg tablet 5 mg PO DAILY losartan 25 mg tablet 25 mg PO DAILY pantoprazole 40 mg tablet,delayed release (DR/EC) 40 mg PO DAILY hydrochlorothiazide 25 mg tablet 25 mg PO DAILY ketoconazole 2 % cream 1 applic topical BID Qty: 60 3RF Rx Instructions: Apply twice daily to hands and arms until follow-up clindamycin phosphate 1 % lotion 1 applic topical BID Qty: 60 3RF Rx Instructions: to face and neck Celebrex 200 mg capsule 200 mg PO DAILY Qty: 30 0RF Discharge Orders: Discharge ED (Routine); Ordered 02/16/22 Ordered By: Chuckie Miramontes Referrals: Ryan Lew, [Primary Care Provider] - Discharge Diet: Usual diet Discharge Activity: Resume usual activity Patient Instructions: Opioid Safety Activity Restrictions/Additional Instructions: Case management will call to make follow-up appointment with you at the wound care clinic. Coding Level of Care Code ED Audio Visual Equipment Rental Clerk for Terrie Calhoun
[2022-02-16 11:59] VITALS: BP 146/85; PULSE 57; O2SAT 99
--- NOTE | 2022-02-18 14:42 | DCPLANNER ---
Addendum entered by Marah Dover 03/07/22 09:02: Patient had a follow up appointment with [facility] - patient did attend appointment Addendum entered by Marah Dover 02/20/22 15:32: Patient has a follow up appointment scheduled for , February 21, 2022 at 1:30 with Sabiha at [facility]. Clinic will call patient with appointment information. Original Note: computer operations manager had message to schedule a follow up appointment for patient with [facility]. computer operations manager sent patients information to the front office staff at [facility]. Patients information will be printed and reviewed. Clinic will call patient with appointment information. Patient has [facility] insurance, manager of case sent patients information to Mary Ellen with [facility] for the authorization process to be started.
== END 2022-02-16 11:58 | disposition home or self-care (01) ==
PROVIDERS: Emergency Provider Family Medicine; PCP Emergency Medicine Emergency Medical Services
DX: T63.331A Toxic effect of venom of brown recluse spider, accidental (unintentional), initial encounter (principal); L03.115 Cellulitis of right lower limb; I10 Essential (primary) hypertension; F17.210 Nicotine dependence, cigarettes, uncomplicated
CPT/HCPCS: 36415; 80048; 85025; 87040; 99283

== ENCOUNTER → 2022-02-21 13:35 | Outpatient (BNVA) | payer OTHER, SELFPAY | PROVIDERS: PCP Emergency Medicine Emergency Medical Services; Visit Provider Nurse Practitioner Family | DX: I96 Gangrene, not elsewhere classified (principal); L89.310 Pressure ulcer of right buttock, unstageable | CPT/HCPCS: 11042; 99213 ==

== ENCOUNTER → 2022-02-28 10:13 | Outpatient (BNVA) | payer OTHER, SELFPAY | PROVIDERS: PCP Emergency Medicine Emergency Medical Services; Visit Provider Nurse Practitioner Family | DX: I96 Gangrene, not elsewhere classified (principal); L98.422 Non-pressure chronic ulcer of back with fat layer exposed; M72.6 Necrotizing fasciitis | CPT/HCPCS: 11042 ==

== ENCOUNTER → 2022-03-07 09:18 | Outpatient (BNVA) | payer OTHER, SELFPAY | PROVIDERS: PCP Emergency Medicine Emergency Medical Services; Visit Provider Nurse Practitioner Family | DX: M72.6 Necrotizing fasciitis (principal); L98.492 Non-pressure chronic ulcer of skin of other sites with fat layer exposed | CPT/HCPCS: 11042 ==

== ENCOUNTER → 2022-03-18 10:09 | Outpatient (BNVA) | payer OTHER, SELFPAY | PROVIDERS: PCP Emergency Medicine Emergency Medical Services; Referring Provider Emergency Medicine Emergency Medical Services; Visit Provider Podiatrist Foot & Ankle Surgery | DX: M20.22 Hallux rigidus, left foot (principal) | CPT/HCPCS: 73630; 99203; 99204 ==

== ENCOUNTER 2022-04-05 06:52 | Day surgery (SDC) | payer OTHER, SELFPAY ==
[2022-04-04 13:10] VITALS: BMI 28.3
--- NOTE | 2022-04-05 06:22 | PM.OPSURHP ---
Providers/Chief Complaint Primary Care Provider: Ryan Lew DO History of Present Illness Lorenzo Nunn is a 61 year old male patient presenting to the clinic for left foot pain. Patient is having pain at the left great toe and it has been an issue for about a year and continuous to get worse. Patient is not able to wear regular tennis shoes and has a lot of pain wearing his boots. 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 Patient states that his pain is at a 6/10 at this visit. Has been trying conservative treatments with activity modification, alternating shoes and boots and anti-inflammatories without improvement. He is here for surgical consultation. Review of Systems General: Reports: 10 or more systems reviewed and unremarkable except in HPI and below Const: Denies: fever(s) or chills Eyes: Denies: change in vision Card: Denies: chest pain or palpitations Resp: Denies: dyspnea or productive cough GI: Denies: abdominal pain, nausea or vomiting : Denies: flank pain Musc: Reports: extremity pain Skin/Breast: Denies: rash Neuro: Denies: numbness in extremities, sensory changes or frequent falls Psych: Denies: suicidal ideation Balaji/Lymph: Denies: easy bruising Medications/Allergies Home Medications Medication Instructions Recorded Confirmed Last Taken Type amlodipine 5 mg tablet 5 mg PO DAILY 08/18/19 04/04/22 04/24/21 History losartan 25 mg tablet 25 mg PO DAILY 08/18/19 04/04/22 04/24/21 History pantoprazole 40 mg tablet,delayed 40 mg PO DAILY 08/18/19 04/04/22 04/23/21 History release hydrochlorothiazide 25 mg tablet 25 mg PO DAILY 11/06/20 04/04/22 04/24/21 History clindamycin phosphate 1 % lotion 1 applic topical BID #60 mL 04/09/21 04/04/22 04/23/21 Rx ketoconazole 2 % topical cream 1 applic topical BID #60 grams 04/09/21 04/04/22 04/23/21 Rx metronidazole 0.75 % topical gel 1 applic topical BID #45 grams 07/18/21 04/04/22 Unknown Rx Allergies Allergy/AdvReac Type Severity Reaction Status Date / Time bupropion [From Wellbutrin] Allergy Unknown unknown Verified 03/18/22 10:15 citalopram Allergy Unknown unknown Verified 03/18/22 10:15 fluoxetine [From Prozac] Allergy Unknown unknown Verified 03/18/22 10:15 paroxetine [From Paxil] Allergy Unknown unknown Verified 03/18/22 10:15 sertraline [From Zoloft] Allergy Unknown Unknown Verified 03/18/22 10:15 venlafaxine [From Effexor] Allergy Unknown Unknown Verified 03/18/22 10:15 PFSH PFSH: Medical History Alcohol abuse, uncomplicated Bipolar II disorder Elevated PSA Erectile disorder, generalized, mild Essential (primary) hypertension Gastro-esophageal reflux disease without esophagitis History of colon polyps History of upper gastrointestinal bleeding Major depressive disorder, recurrent, unspecified Palmar fascial fibromatosis [dupuytren] Panic disorder Surgical History History of arthroplasty of knee History of colonoscopy 01/19/2019-REPEAT IN 3 YEARS History of nasal septoplasty History of shoulder surgery Family History Other Cancer Diabetes Hypertension Social History Smoking and tobacco status: current every day smoker Alcohol intake: current Household members: spouse Housing: House Marital status: History of recent travel: No Current gender identity: Male Vital Signs Weight: Weight last 48 hrs Weight 215 lb Physical Exam Narrative: EXAM NARRATIVE: Patient is alert and oriented ?3 and in no acute distress.? The following is a focused bilateral lower extremity exam. VASCULAR: Dorsalis pedis and posterior tibial arteries palpable +2.? Capillary refill time less than 3 seconds to the distal hallux bilaterally. Calf is supple and nontender proximally and distally.? No pedal edema appreciated.? Pedal hair growth present. NEUROLOGICAL: Epicritic and protopathic sensations grossly intact to the lower extremities.? +2 Achilles tendon reflex noted bilaterally.? Negative Tinel sign upon percussion of lower extremity nerves. DERMATOLOGICAL: Lower extremity skin is well-hydrated, normal texture and turgor.? There are no open sores or lesions noted to the lower extremities.? No erythema or ecchymosis present to the bilateral legs and feet. MUSCULOSKELETAL: Pain to palpation left first metatarsal phalangeal joint.? Decreased dorsiflexion at 20 degrees with osseous and range of motion at the left first metatarsal plantar joint.? Crepitus present.? No bony deformity appreciated.? Muscle strength 5 out of 5 in all 3 planes to the bilateral foot and ankle. CARDIOVASCULAR: S1, S2, normal rate, normal rhythm. Dorsalis pedis and posterior tibial arteries palpable. LUNGS: Clear to auscltation, no use of acessory muscles, no crackles or wheezes. A&P Assessment and plan (1) Hallux rigidus, left foot: (2) Left foot pain: Plan 61-year-old male presents with hallux rigidus to the left foot.? No history of trauma.? On x-ray there is no increase in first intermetatarsal angle.? Normal metatarsal parabola, increased fourth intermetatarsal angle.? Significant arthrosis appreciated at the left first metatarsal phalangeal joint.? Has subchondral sclerosis and joint space narrowing.? Bossing dorsally appreciated on the lateral view. Patient examined and evaluated, findings and treatment options were discussed with patient at length.? Discussed both conservative and surgical management.? Conservative treatment has failed to offer relief consisting of supportive shoes, rigid midsole, orthotic with Machado's extension, anti-inflammatories and activity modifications.? He states he has been doing these things and is no longer experiencing relief.? Especially has pain when he rides his motorcycle and has to shift up.? Motorcycling is his passion and this is affecting his ability to enjoy it.? States he just wants to ride his [employer].? He is more interested in surgical options.? Discussed joint preserving and joint destructive procedures.? He is more interested in a cheilectomy at this time with understanding that this will be a temporary fix.? May require a arthrodesis versus prostatic implant.? His is present, she works at [employer]. [employer]? [employer]. I reviewed at length with the patient, the risks, potential complications, benefits, alternatives, expectations, and typical outcomes associated with the surgery. The risks and potential complications were explained in detail, including but not limited to infection, wound dehiscence or soft tissue complications, bleeding and hematoma, chronic edema, neuritis or nerve damage producing numbness or chronic pain, CRPS, failure to relieve pain or worsening pain, thick / painful / unsightly scar, limited motion / stiffness, malposition, delayed union, malunion, or nonunion, fracture, reaction to implants, anesthetic complications, venous thromboembolism, and deformity recurrence. I discussed the notion of no regrets with the patient as it pertains to complications and outcomes. The patient seemed to understand the nature of the proposed care and required convalescence. They asked appropriate questions, answered to their satisfaction. They are aware no guarantees can be made as to a satisfactory outcome and they understand there may be other possible unforeseen complications or outcomes not listed here that will be treated accordingly if they arise. There were no written or implied guarantees given to the patient. They gave informed consent to proceed. Left cheilectomy, MAC, gurney, supine, TPS, 30 minutes. Coding Level of Care Code Acute Senior Software Tester for g Fwd Diagnoses Hallux rigidus, left foot M20.22 Left foot pain M79.672
--- NOTE | 2022-04-05 06:25 | W.PM.OPSUD ---
Surgery/Procedure H&P Update DATE OF PROCEDURE: April 05, 2022 DATE H&P PERFORMED: 04/05/22 CHANGES TO PREVIOUS DOCUMENTATION: None PREOP DIAGNOSIS: Left hallux rigidus PLANNED PROCEDURE: Operation Date: 04/05/22 08:20 Proposed Procedures p Cheilectomy 74181(Left) - Darrell Sosa DPM
[2022-04-05 07:06] VITALS: BP 138/89; PULSE 62; RESP 18; TEMP 37.2; O2SAT 98
[2022-04-05] MEDS: sodium chloride 0.9% 1,000 ML 30 ML IV (07:19)
[2022-04-05 07:42] LABS: Blood Urea Nitrogen 10 mg/dL (8-23); Calcium 9.5 mg/dL (8.5-10.5); Carbon Dioxide 25 mmol/L (22-29); Chloride 90 mmol/L (98-107); Glomerular Filtration Rate 67.8 mL/min (90-130); Glucose 75 mg/dL (65-115); Osmolality Calculated 264 mOsm/kg (285-295); Sodium 128 mmol/L (136-145)
[2022-04-05 07:46] LABS: Anion Gap 16.6 (5-19)
[2022-04-05 07:47] LABS: Potassium 3.6 mmol/L (3.5-5.1)
--- NOTE | 2022-04-05 08:03 | ANES.PREANE2 ---
Pre-Anesthetic Assessment Height/Weight: Height 1.85 m Weight 97.522 kg Temp Pulse Resp BP Pulse Ox O2 Del Method 99.0 F 62 18 138/89 98 04/05/22 07:06 04/05/22 07:06 04/05/22 07:06 04/05/22 07:06 04/05/22 07:06 04/05/22 07:07 Preop Diagnosis: Left hallux rigidus Operation Date: 04/05/22 08:20 Proposed Procedures p Cheilectomy 99820(Left) - Darrell Sosa DPM Familial anesthetic complications: NOne Was Beta Karime taken within 24 hours: N/A Was Clonidine taken within 24 hours: N/A Last intake: Intake Last Liquid Date 04/04/22 Last Liquid Time 20:00 Last Solid Date 04/04/22 Last Solid Time 20:00 Social Tobacco and No alcohol Exam alert, oriented x 3, clear to auscultation bilaterally and regular rate & rhythm Airway Mallampati: Class III Dentition: other (no teeth) CV/HEM Hypertension GI recurrent pancreatitis Anesthetic Plan ASA status: 2 Anesthesia: MAC Risk of > 500 ml blood loss (7ml/kg in children): No Medications/Allergies Home Medications Medication Instructions Recorded Confirmed Last Taken Type amlodipine 5 mg tablet 5 mg PO DAILY 08/18/19 04/05/22 04/04/22 History losartan 25 mg tablet 25 mg PO DAILY 08/18/19 04/05/22 04/04/22 History pantoprazole 40 mg tablet,delayed 40 mg PO DAILY 08/18/19 04/05/22 04/04/22 History release hydrochlorothiazide 25 mg tablet 25 mg PO DAILY 11/06/20 04/05/22 04/04/22 History clindamycin phosphate 1 % lotion 1 applic topical BID #60 mL 04/09/21 04/04/22 04/23/21 Rx ketoconazole 2 % topical cream 1 applic topical BID #60 grams 04/09/21 04/04/22 04/23/21 Rx metronidazole 0.75 % topical gel 1 applic topical BID #45 grams 07/18/21 04/04/22 Unknown Rx Allergies Allergy/AdvReac Type Severity Reaction Status Date / Time bupropion [From Wellbutrin] Allergy Unknown unknown Verified 03/18/22 10:15 citalopram Allergy Unknown unknown Verified 03/18/22 10:15 fluoxetine [From Prozac] Allergy Unknown unknown Verified 03/18/22 10:15 paroxetine [From Paxil] Allergy Unknown unknown Verified 03/18/22 10:15 sertraline [From Zoloft] Allergy Unknown Unknown Verified 03/18/22 10:15 venlafaxine [From Effexor] Allergy Unknown Unknown Verified 03/18/22 10:15 Current Medications Generic Name Dose Route Start Last Admin Trade Name Ronenq PRN Reason Stop Dose Admin Sodium Chloride 1,000 mls @ 30 mls/hr 04/05/22 07:00 04/05/22 07:19 Sodium Chloride 0.9% IV 04/06/22 06:59 30 mls/hr .Q24H BEBETO Administration PFSH Anesthesia Medical History Alcohol abuse, uncomplicated Bipolar II disorder Elevated PSA Erectile disorder, generalized, mild Essential (primary) hypertension Gastro-esophageal reflux disease without esophagitis History of colon polyps History of upper gastrointestinal bleeding Major depressive disorder, recurrent, unspecified Palmar fascial fibromatosis [dupuytren] Panic disorder Surgical History History of arthroplasty of knee History of colonoscopy 01/19/2019-REPEAT IN 3 YEARS History of nasal septoplasty History of shoulder surgery Family History Other Cancer Diabetes Hypertension Social History Smoking and tobacco status: current every day smoker Alcohol intake: current Household members: spouse Housing: House Marital status: History of recent travel: No Current gender identity: Male Data Anesthesia : 04/05/22 07:15 BMP 04/05/22 07:15 Sodium 128 L Potassium 3.6 Chloride 90 L Carbon Dioxide 25 BUN 10 Creatinine 1.1 Glucose 75 Calcium 9.5 Cardiac Studies: No Data to Display
[2022-04-05] MEDS: ceFAZolin 2,000 MG in sodium chloride 0.9% (plus) 50 ML 100 MG IV (08:10)
[2022-04-05 08:57] VITALS: BP 108/74; PULSE 68; RESP 14; TEMP 36.2; O2SAT 99
--- NOTE | 2022-04-05 08:57 | PM.OP ---
Operative Report Date of procedure: April 05, 2022 Pre-op diagnosis: Preop Diagnosis Left hallux rigidus Post-op diagnosis: Left hallux rigidus. Gout. Post-op findings: Gouty tophi Procedure done: Left foot Cheilectomy. CPT 27923 Implants: 20 cc of 0.25% Marcaine plain. 10 cc of Exparel. 3-0 Vicryl, 4-0 Vicryl, 4-0 nylon Surgeon: Darrell Sosa D.P.M. Leasing Associate: Raz Ni IV fluids: None Urine output: None Complications: None Findings: See above Brief History: 61-year-old male presents with hallux rigidus to the left foot.? No history of trauma.? On x-ray there is no increase in first intermetatarsal angle.? Normal metatarsal parabola, increased fourth intermetatarsal angle.? Significant arthrosis appreciated at the left first metatarsal phalangeal joint.? Has subchondral sclerosis and joint space narrowing.? Bossing dorsally appreciated on the lateral view. Patient examined and evaluated, findings and treatment options were discussed with patient at length.? Discussed both conservative and surgical management.? Conservative treatment has failed to offer relief consisting of supportive shoes, rigid midsole, orthotic with Machado's extension, anti-inflammatories and activity modifications.? He states he has been doing these things and is no longer experiencing relief.? Especially has pain when he rides his motorcycle and has to shift up.? Motorcycling is his passion and this is affecting his ability to enjoy it.? States he just wants to ride his [employer].? He is more interested in surgical options.? Discussed joint preserving and joint destructive procedures.? He is more interested in a cheilectomy at this time with understanding that this will be a temporary fix.? May require a arthrodesis versus prostatic implant.? His is present, she works at [employer].? I reviewed at length with the patient, the risks, potential complications, benefits, alternatives, expectations, and typical outcomes associated with the surgery. The risks and potential complications were explained in detail, including but not limited to infection, wound dehiscence or soft tissue complications, bleeding and hematoma, chronic edema, neuritis or nerve damage producing numbness or chronic pain, CRPS, failure to relieve pain or worsening pain, thick / painful / unsightly scar, limited motion / stiffness, malposition, delayed union, malunion, or nonunion, fracture, reaction to implants, anesthetic complications, venous thromboembolism, and deformity recurrence.? I discussed the notion of no regrets with the patient as it pertains to complications and outcomes. The patient seemed to understand the nature of the proposed care and required convalescence. They asked appropriate questions, answered to their satisfaction. They are aware no guarantees can be made as to a satisfactory outcome and they understand there may be other possible unforeseen complications or outcomes not listed here that will be treated accordingly if they arise. There were no written or implied guarantees given to the patient. They gave informed consent to proceed. Procedure: Under mild sedation the patient was brought to the operating room and remained on the gurney in supine position. A timeout was performed. Anesthesia was then administered by the anesthesia service. Local anesthesia was injected utilizing 20 cc of 0.25% Marcaine plain in a left Villasenor block fashion followed by 10 cc of Exparel in a subcutaneous grid like fashion per data entry representative recommendation and technique at the left medial forefoot. Well-padded pneumatic tourniquet applied to the left ankle. Left lower extremity was scrubbed, prepped and draped utilizing normal aseptic technique. Left foot was exanguinated with an Esmarch bandage and tourniquet inflated to 250 mmHg. Attention was directed to the dorsal medial aspect of the left first metatarsal phalangeal joint where a linear longitudinal incision was made directly over the first metatarsal phalangeal joint medial and parallel to the extensor houses longus tendon through skin with a #15 blade with dissection carried down through subcutaneous tissue to the layer of periosteum and joint capsule utilizing sharp and blunt technique. Care was taken to retract and preserve neurovascular and tendinous structures. All bleeders were ligated and cauterized as necessary. A periosteal incision and capsular incision was made, gouty tophi and synovitis was appreciated, gouty tophi was minimal this was excised sharply and passed from the operative field. Significant loose chondral bodies in osseous bodies appreciated at the dorsal aspect of the left first metatarsal phalangeal joint which were excised and passed from the operative field. Osteotomy was performed from distal to proximal to [place] toward the dorsal aspect of the left first metatarsal head and all rough edges smoothed with a hand rasp. Attention was directed to the base of the proximal phalanx of the left hallux which was transected at its bony exostosis and all rough edges smoothed with a rasp. The incision was flushed with copious amounts of sterile saline solution. Smooth range of motion at the first metatarsal phalangeal joint appreciated with 50 degrees of dorsiflexion intraoperatively. No crepitus. The incision was once again flushed with saline solution and closed in a layered fashion with joint capsule closed utilizing 3-0 Vicryl, subcutaneous tissue with 4-0 Vicryl and skin with 4-0 nylon. The incision was dressed with Adaptic, sterile 4 x 4, Kerlix and Terrance wrap. Cam boot applied to the left lower extremity. Tourniquet was deflated and a prompt hyperemic response was noted to the distal digits of the left foot. Patient tolerated the procedure and anesthesia well and was transferred to the PACU with vital signs stable and vascular status intact. Following a period of postop monitoring he will be discharged home, may be weightbearing as tolerated with Cam boot. Elevate left foot while resting. Was provided at home care instructions and follow-up.
[2022-04-05 09:05] VITALS: BP 106/70; PULSE 54; RESP 15; O2SAT 99
[2022-04-05 09:10] VITALS: BP 110/74; PULSE 52; RESP 14; TEMP 36.3; O2SAT 100
[2022-04-05 09:20] VITALS: BP 119/73; PULSE 54; RESP 18; TEMP 36.4; O2SAT 96
[2022-04-05 09:38] VITALS: BP 122/75; PULSE 50; RESP 16; O2SAT 95
--- NOTE | 2022-04-05 12:59 | ANE.PACU2 ---
Inpatient post-anesthesia follow up: Airway intact: Yes Vital signs: Temperature 97.6 F Pulse Rate 50 Respiratory Rate 16 Blood Pressure 122/75 Pulse Oximetry 95 Oxygen Delivery Me thod Room Air Oxygen Flow Rate 6 Fraction of Inspir ed Oxygen Hydration adequate: Yes Nausea and vomiting: No Pain level: 1 Mental status: Baseline
== END 2022-04-05 09:55 | disposition home or self-care (01) ==
PROVIDERS: Anesthesiology; PCP Emergency Medicine Emergency Medical Services; Visit Provider Podiatrist Foot & Ankle Surgery
PROC: (CPT 28289; principal; 2022-04-05 08:10)
DX: M20.22 Hallux rigidus, left foot (principal); I10 Essential (primary) hypertension; F17.210 Nicotine dependence, cigarettes, uncomplicated
CPT/HCPCS: 28289; 80048; C9290; J2250; J2370; J2704; J3010; J3490; J7030

== ENCOUNTER → 2022-04-08 11:28 | Outpatient (BNVA) | payer OTHER, SELFPAY | PROVIDERS: PCP Emergency Medicine Emergency Medical Services; Visit Provider Specialist | DX: S46.011D Strain of muscle(s) and tendon(s) of the rotator cuff of right shoulder, subsequent encounter (principal); W01.0XXD Fall on same level from slipping, tripping and stumbling without subsequent striking against object, subsequent encounter | CPT/HCPCS: 73030; 99213 ==

== ENCOUNTER → 2022-04-18 11:03 | Outpatient (BNVA) | payer OTHER, SELFPAY | PROVIDERS: PCP Emergency Medicine Emergency Medical Services; Visit Provider Podiatrist Foot & Ankle Surgery | DX: M20.22 Hallux rigidus, left foot (principal) | CPT/HCPCS: 99024 ==

== ENCOUNTER 2022-04-19 06:47 | Outpatient (CLI) | payer OTHER, SELFPAY ==
--- NOTE | 2022-04-19 07:15 | MR_ITS ---
WS: [id number] MRI RIGHT SHOULDER NONCONTRAST TECHNIQUE: Sagittal T2, coronal T1, T2 and proton density imaging. Axial gradient PDE imaging. CLINICAL INFORMATION: post op rotator cuff repair, recent fall COMPARISON: None. FINDINGS: Prior postoperative changes resection of the distal clavicle. Edema at the clavicle and AC joint. Sin ce the prior examination interval rotator cuff repair with rotator cuff anchors. Distal supraspinatus appears intact distally. New tiny undersurface tear distal supraspinatus which otherwise appears int act. No tendon retraction. Infraspinatus appears intact. Normal teres minor. Normal subscapularis. Biceps tendon appears intact within the bicipital groove. Intra-articular biceps tendon is somewhat d iminutive but appears intact. Degenerative fraying of the glenoid labrum. Normal bone marrow signal i n the glenoid and humerus. Small amount of subacromial/subdeltoid fluid. MR/MR shoulder RT wo con* [id number] IMPRESSION: 1. Interval postoperative changes resection of the distal clavicle with fluid and edema along the distal clavicle and AC joint. 2. Interval repair of the previously described supraspinatus insertional tear. New tiny undersurface tear distal supraspinatus which otherwise appears intact . No retraction. 3. Rotator cuff is otherwise intact. 4. Biceps tendon appears intact within the bicipital groove. 5. Intra-articular biceps tendon is somewhat diminutive but appears intact. 6. No other new findings.
== END 2022-04-19 06:48 | disposition home or self-care (01) ==
LOC: RAD 06:48
PROVIDERS: PCP Emergency Medicine Emergency Medical Services; Visit Provider Specialist
DX: S46.011D Strain of muscle(s) and tendon(s) of the rotator cuff of right shoulder, subsequent encounter (principal); Z98.890 Other specified postprocedural states
CPT/HCPCS: 73221

== ENCOUNTER → 2022-05-06 13:52 | Outpatient (BNVA) | payer OTHER, SELFPAY | PROVIDERS: PCP Emergency Medicine Emergency Medical Services; Visit Provider Specialist | DX: M19.011 Primary osteoarthritis, right shoulder (principal) | CPT/HCPCS: 99213 ==

== ENCOUNTER → 2022-05-23 12:00 | Outpatient (BNVA) | payer OTHER, SELFPAY | PROVIDERS: PCP Emergency Medicine Emergency Medical Services; Visit Provider Podiatrist Foot & Ankle Surgery | DX: M20.22 Hallux rigidus, left foot (principal) | CPT/HCPCS: 99024 ==

== ENCOUNTER 2022-06-06 05:56 | Emergency (ER) | payer OTHER, SELFPAY ==
[2022-06-06 06:04] VITALS: BP 164/93; PULSE 79; RESP 16; TEMP 37.1; O2SAT 98
--- NOTE | 2022-06-06 06:11 | W.ED.NAVMDI ---
HPI - Nausea/Vomiting/Diarrhea General: Chief complaint: Nausea/Vomiting/Diarrhea Stated complaint: can't hold down food or water, aches, coughing Time Seen by Provider: 06/06/22 06:03 Source: patient Mode of arrival: ambulatory Limitations: no limitations History of Present Illness: See nursing assessment. Patient with complaints of nausea vomiting diarrhea since Friday. Patient also with intermittent fever and occasional cough. Patient reports nausea vomiting today after drinking coffee. He states he has not had any diarrhea in 2 to 3 days. States symptoms started on Friday after started having same symptoms and they before. Patient with occasional abdominal cramping. Patient appears in no distress. Patient is talkative Associated nausea: Yes Associated symtoms: Reports nausea; Denies anxiety, change in vision, chest pain, headache(s) or palpitations Review of Systems Const: Reports: other (Intermittent fever. No fever in a few days); Denies: chills Eyes: Denies: change in vision ENMT: Denies: throat pain Card: Denies: chest pain or palpitations Resp: Denies: dyspnea or wheezing GI: Reports: abdominal pain (Abdominal cramping), nausea, vomiting and diarrhea; Denies: hematochezia : Denies: flank pain Musc: Denies: neck pain or back pain Skin/Breast: Denies: rash or pruritus Neuro: Denies: headache(s) or numbness in extremities Psych: Denies: anxiety Balaji/Lymph: Denies: enlarged lymph nodes PFSH ED PFSH: Medical History Alcohol abuse, uncomplicated Bipolar II disorder Elevated PSA Erectile disorder, generalized, mild Essential (primary) hypertension Gastro-esophageal reflux disease without esophagitis History of colon polyps History of upper gastrointestinal bleeding Major depressive disorder, recurrent, unspecified Palmar fascial fibromatosis [dupuytren] Panic disorder Surgical History History of arthroplasty of knee History of colonoscopy 01/19/2019-REPEAT IN 3 YEARS History of nasal septoplasty History of shoulder surgery Family History Other Cancer Diabetes Hypertension Social History Smoking and tobacco status: current every day smoker Alcohol intake: current Household members: spouse Housing: House Marital status: History of recent travel: No Current gender identity: Male Physical Exam Const: COMMON NORMALS: no acute distress, patient oriented x3, no limitations and well nourished GENERAL APPEARANCE: cooperative HENMT: COMMON NORMALS: normocephalic and atraumatic HEAD & SCALP: normocephalic and atraumatic FACE & SINUS: normal facial exam Eye: COMMON NORMALS: EOMs intact bilaterally Neck/C-Spine: COMMON NORMALS: full ROM, no lymphadenopathy, supple and no meningeal signs GENERAL: Yes normal visual inspection Lymph: LYMPHATIC: no lymphadenopathy noted Chest: COMMONS NORMALS: normal inspection of the chest and normal palpation of entire chest wall CHEST: No Ecchymosis present and No rash Resp: COMMON NORMALS: normal respiratory effort, No retractions and clear to auscultation bilaterally EFFORT & INSPECTION: No respiratory distress AUSCULTATION: clear to auscultation bilaterally Cardio: COMMON NORMALS: regular rate, regular rhythm and Peripheral pulses 2+ throughout JUGULAR VENOUS DISTENTION: no JVD RATE: regular rate RHYTHM: regular rhythm PERIPHERAL PULSES: Peripheral pulses 2+ throughout GI: COMMON NORMALS: Normal to inspection, nondistended, normoactive bowel sounds present and non-tender OTHER: Patient is nontender now. No masses palpated. No bruits : COMMON NORMALS: Yes no CVA tenderness BLADDER/KIDNEY EXAM: Yes no CVA tenderness Back/Pelvis: COMMON NORMALS: no CVA tenderness Extremity: COMMON NORMALS: normal to inspection, full ROM and capillary refill normal Neuro: COMMON NORMALS: patient oriented x3, CN's II-XII intact bilaterally, no focal motor deficits and no sensory deficits noted MENINGEAL SIGNS: Yes no meningeal signs Psych: COMMON NORMALS: mental status grossly normal and Normal thought process present THOUGHT PROCESS: Normal thought process present Skin: COMMON NORMALS: no rashes or lesions noted and no wounds GENERAL SKIN EXAM: no rashes or lesions noted Course Vital Signs: Vital signs: Vital Signs Temperature 98.8 F 06/06/22 06:04 Pulse Rate 60 06/06/22 06:54 Respiratory Rate 15 06/06/22 06:54 Blood Pressure 161/92 06/06/22 06:54 Pulse Oximetry 94 06/06/22 06:54 Oxygen Delivery Me thod 06/06/22 06:04 MDM - Nausea/Vomiting/Diarrhea Medical Decision Making Likely viral gastroenteritis, acute bronchitis Patient reports a history of pancreatitis in the past. Lab Data 06/06/22 06:25 06/06/22 06:25 Laboratory Results WBC 5.8 10^3/uL (4.0-10.0) 06/06/22 06:25 RBC 4.61 10^6/uL (4.1-5.3) 06/06/22 06:25 Hgb 15.8 g/dL (11.7-16.6) 06/06/22 06:25 Hct 45.5 % (42.0-52.0) 06/06/22 06:25 MCV 98.7 fl (80-94) H 06/06/22 06:25 MCH 34.3 pg (28.0-34.0) H 06/06/22 06:25 MCHC 34.7 g/dL (30.0-36.0) 06/06/22 06:25 RDW 12.6 % (12.1-15.1) 06/06/22 06:25 Plt Count 195 10^3/cmm (130-400) 06/06/22 06:25 MPV 9.7 fL (7.4-10.4) 06/06/22 06:25 Neut % (Auto) 70.0 % 06/06/22 06:25 Lymph % (Auto) 19.3 % 06/06/22 06:25 [place] % (Auto) 9.2 % 06/06/22 06:25 Eos % (Auto) 0.9 % 06/06/22 06:25 Baso % (Auto) 0.3 % 06/06/22 06:25 Neut # (Auto) 4.05 10^3/uL (1.8-7.7) 06/06/22 06:25 Lymph # (Auto) 1.1 10^3/uL (0.8-4.8) 06/06/22 06:25 [place] # (Auto) 0.5 10^3/uL (0.2-0.9) 06/06/22 06:25 Eos # (Auto) 0.1 10^3/uL (0.0-0.8) 06/06/22 06:25 Baso # (Auto) 0.0 10^3/uL (0.0-0.1) 06/06/22 06:25 Nucleated RBC % (auto) 0 % 06/06/22 06:25 Nucleated RBCs # 0.0 /100WBC 06/06/22 06:25 Sodium 133 mmol/L (136-145) L 06/06/22 06:25 Potassium 3.1 mmol/L (3.5-5.1) L 06/06/22 06:25 Chloride 91 mmol/L (98-107) L 06/06/22 06:25 Carbon Dioxide 28 mmol/L (22-29) 06/06/22 06:25 Anion Gap 17.1 (5-19) 06/06/22 06:25 BUN 18 mg/dL (8-23) 06/06/22 06:25 Creatinine 1.3 mg/dL (0.7-1.2) H 06/06/22 06:25 GFR Calculation 55.9 mL/min (90-130) L 06/06/22 06:25 Glucose 119 mg/dL (65-115) H 06/06/22 06:25 Calculated Osmolality 279 mOsm/kg (285-295) L 06/06/22 06:25 Calcium 8.8 mg/dL (8.5-10.5) 06/06/22 06:25 Total Bilirubin 1.0 mg/dL (0.15-1.2) 06/06/22 06:25 AST 22 U/L (0-40) 06/06/22 06:25 ALT 16 U/L (0-41) 06/06/22 06:25 Alkaline Phosphatase 60 U/L (40-130) 06/06/22 06:25 Total Protein 8.2 g/dL (6.6-8.7) 06/06/22 06:25 Albumin 4.5 g/dL (3.5-5.2) 06/06/22 06:25 Globulin 3.7 g/dL (1.3-4.6) 06/06/22 06:25 Lipase 145 U/L (13-60) H 06/06/22 06:25 Influenza Type A Ag negative (Negative) 06/06/22 06:25 Influenza Type B Ag negative (Negative) 06/06/22 06:25 SARS-CoV-2 Ag (Rapid) Negative (Negative) 06/06/22 06:25 Imaging Data CXR: My impression: Nothing acute. No infiltrates or effusions. Discharge Plan Discharge Patient Disposition: Home Clinical Impression: Gastroenteritis, Nausea vomiting and diarrhea, Dehydration Acute bronchitis Qualifiers: Bronchitis organism: unspecified organism Qualified Code(s): J20.9 - Acute bronchitis, unspecified Condition: Stable Prescriptions: New Carafate 1 gram tablet 1 g PO Q6H Qty: 20 2RF Rx Instructions: for stomach ondansetron 4 mg tablet,disintegrating 4 mg PO Q6H PRN (Reason: nausea and vomiting) Qty: 15 1RF dicyclomine 20 mg tablet 20 mg PO QID Qty: 10 1RF No Action metronidazole 0.75 % gel 1 applic topical BID Qty: 45 6RF Rx Instructions: Apply thin film to entire face twice daily amlodipine 5 mg tablet 5 mg PO DAILY losartan 25 mg tablet 25 mg PO DAILY pantoprazole 40 mg tablet,delayed release (DR/EC) 40 mg PO DAILY hydrochlorothiazide 25 mg tablet 25 mg PO DAILY ketoconazole 2 % cream 1 applic topical BID Qty: 60 3RF Rx Instructions: Apply twice daily to hands and arms until follow-up clindamycin phosphate 1 % lotion 1 applic topical BID Qty: 60 3RF Rx Instructions: to face and neck meloxicam 15 mg tablet 15 mg PO DAILY Qty: 30 0RF Discharge Orders: Discharge ED (Routine); Ordered 06/06/22 Ordered By: Dylan Satfford Referrals: Ryan Lew, [Primary Care Provider] - 1-3 days Discharge Diet: Advance as tolerated Discharge Activity: Increase activity as tolerated Patient Instructions: Dehydration (ED), Gastroenteritis (ED), Acute Nausea and Vomiting (ED) Activity Restrictions/Additional Instructions: Drink plenty fluids. Avoid caffeine. Take medication as prescribed. May also take [id number] Robitussin and/or antiallergy medication like Carly to help dry up mucus. Follow-up with family doctor this week or early next week for recheck. 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
--- NOTE | 2022-06-06 06:12 | XRR_ITS ---
PROCEDURE INFORMATION: Exam: XR Chest Exam date and time: 06/06/2022 6:30 AM Age: 61 years old Clinical indication: Cough TECHNIQUE: Imaging protocol: Radiologic exam of the chest. Views: 1 view. COMPARISON: MR shoulder RT wo con* [id number] 04/19/2022 8:10 AM FINDINGS: Lungs: No pulmonary consolidation. Pleural spaces: No pleural effusion. No pneumothorax. Heart/Mediastinum: No gross evidence of pneumomediastinum. Diaphragm: Mild elevation of the right hemidiaphragm. Bones/joints: No gross fracture. Soft tissues: Probable nipple shadows overlying the lower chest bilaterally. Consider repeat chest radiograph with nipple markers to confirm. XR/XR chest 1V portable [id number] IMPRESSION: 1. Probable nipple shadows overlying the lower chest bilaterally. Consider repeat chest radiograph with nipple markers to exclude pulmonary nodules. 2. No evidence of pneumonia.
[2022-06-06] MEDS: ondansetron 2 mg/ML SDV 2 mL 4 MG IVP (06:28)
[2022-06-06] MEDS: sodium chloride 0.9% 1,000 ML 999 ML IV (06:28)
[2022-06-06 06:30] LABS: Basophils % 0.3 %; Eosinophils # 0.1 10^3/uL (0.0-0.8); Eosinophils % 0.9 %; Hematocrit 45.5 % (42.0-52.0); Hemoglobin 15.8 g/dL (11.7-16.6); Lymphocytes # 1.1 10^3/uL (0.8-4.8); Lymphocytes % 19.3 %; Mean Corpuscular HGB Conc 34.7 g/dL (30.0-36.0); Mean Corpuscular Hemoglobin 34.3 pg (28.0-34.0); Mean Corpuscular Volume 98.7 fl (80-94); Mean Platelet Volume 9.7 fL (7.4-10.4); Monocytes # 0.5 10^3/uL (0.2-0.9); Monocytes % 9.2 %; Neutrophils # 4.05 10^3/uL (1.8-7.7); Nucleated Red Blood Cells % 0 %; Platelet Count 195 10^3/cmm (130-400); Red Blood Count 4.61 10^6/uL (4.1-5.3); Red Cell Distribution Width 12.6 % (12.1-15.1); White Blood Count 5.8 10^3/uL (4.0-10.0)
[2022-06-06 06:48] LABS: Alanine Aminotransferase 16 U/L (0-41); Albumin Level 4.5 g/dL (3.5-5.2); Alkaline Phosphatase 60 U/L (40-130); Anion Gap 17.1 (5-19); Aspartate Amino Transferase 22 U/L (0-40); Blood Urea Nitrogen 18 mg/dL (8-23); Calcium 8.8 mg/dL (8.5-10.5); Carbon Dioxide 28 mmol/L (22-29); Chloride 91 mmol/L (98-107); Globulin 3.7 g/dL (1.3-4.6); Glomerular Filtration Rate 55.9 mL/min (90-130); Glucose 119 mg/dL (65-115); Lipase 145 U/L (13-60); Osmolality Calculated 279 mOsm/kg (285-295); Potassium 3.1 mmol/L (3.5-5.1); Sodium 133 mmol/L (136-145); Total Protein 8.2 g/dL (6.6-8.7)
[2022-06-06 06:49] LABS: Creatinine Clr Calc Pharmacy 74.7253
[2022-06-06 06:54] VITALS: BP 161/92; PULSE 60; RESP 15; O2SAT 94
[2022-06-06 06:58] LABS: Influenza A by IFA negative (Negative); Influenza B by IFA negative (Negative)
[2022-06-06 06:59] LABS: SARS Covid-2 Antigen Negative (Negative)
[2022-06-06] MEDS: pantoprazole 40 mg SDV IVP (07:44)
[2022-06-06 08:04] VITALS: BP 161/92; PULSE 60; RESP 15; O2SAT 94
== END 2022-06-06 08:05 | disposition home or self-care (01) ==
PROVIDERS: Emergency Provider Family Medicine; PCP Emergency Medicine Emergency Medical Services
DX: K52.9 Noninfective gastroenteritis and colitis, unspecified (principal); J20.9 Acute bronchitis, unspecified; E86.0 Dehydration; Z20.822 Contact with and (suspected) exposure to COVID-19; F17.210 Nicotine dependence, cigarettes, uncomplicated; I10 Essential (primary) hypertension
CPT/HCPCS: 71045; 80053; 83690; 85025; 87426; 87804; 96361; 96374; 96375; 99284; C9113; J2405; J7030

== ENCOUNTER → 2022-09-12 09:53 | Outpatient (BNVA) | payer OTHER, SELFPAY | PROVIDERS: PCP Emergency Medicine Emergency Medical Services; Visit Provider Physician Assistant | DX: M21.372 Foot drop, left foot (principal); M51.36 Other intervertebral disc degeneration, lumbar region; M48.062 Spinal stenosis, lumbar region with neurogenic claudication | CPT/HCPCS: 72120; 99203 ==

== ENCOUNTER 2022-09-18 08:38 | Day surgery (SDC) | payer OTHER, SELFPAY ==
[2022-09-17 08:16] VITALS: BMI 29.1
[2022-09-17 09:13] LABS: Anion Gap 17.5 (5-19); Blood Urea Nitrogen 9 mg/dL (8-23); Calcium 9.6 mg/dL (8.5-10.5); Carbon Dioxide 26 mmol/L (22-29); Chloride 97 mmol/L (98-107); Glomerular Filtration Rate 75.7 mL/min (90-130); Glucose 92 mg/dL (65-115); Osmolality Calculated 282 mOsm/kg (285-295); Potassium 3.5 mmol/L (3.5-5.1); Sodium 137 mmol/L (136-145)
--- NOTE | 2022-09-17 10:34 | ANES.PREANE2 ---
Pre-Anesthetic Assessment Height/Weight: Height 1.83 m Weight 97.522 kg Preop Diagnosis: Left hallux rigidus Operation Date: 09/18/22 11:35 Proposed Procedures p Lumbar Spine Decompression:LT of L4/5 L5-S1 6347,94062 M21.372,M51.36(Left) - Pedro Pugh DO Familial anesthetic complications: none Was Beta Karime taken within 24 hours: N/A Was Clonidine taken within 24 hours: N/A Social Tobacco and No alcohol Exam alert, oriented x 3 and regular rate & rhythm Airway Submandibular: within normal limits Cervical ROM: within normal limits Mallampati: Class II Dentition: chipped Pulmonary Chronic Obstructive Pulmonary Disease CV/HEM Hypertension GI Gastroesophageal Reflux Disease Musc/skel Lower Back Pain and Osteoarthritis/DJD Anesthetic Plan ASA status: 3 Anesthesia: General Medications/Allergies Home Medications Medication Instructions Recorded Confirmed Last Taken Type amlodipine 5 mg tablet 5 mg PO DAILY 08/18/19 09/17/22 09/17/22 History losartan 25 mg tablet 12.5 mg PO DAILY 08/18/19 09/17/22 09/17/22 History pantoprazole 40 mg tablet,delayed 40 mg PO DAILY 08/18/19 09/17/22 09/17/22 History release hydrochlorothiazide 25 mg tablet 25 mg PO DAILY 11/06/20 09/17/22 09/17/22 History meloxicam 15 mg tablet 15 mg PO DAILY #30 tabs 04/08/22 09/17/22 2 Days Ago Rx ~09/15/22 ondansetron 4 mg disintegrating 4 mg PO Q6H PRN nausea and 06/06/22 09/17/22 Unknown Rx tablet vomiting #15 tabs sucralfate 1 gram tablet (Carafate) 1 g PO Q6H #20 tabs 06/06/22 09/17/22 Unknown Rx hydrocodone 5 mg-acetaminophen 325 1 tab PO Q4H PRN pain 7 days #42 09/12/22 09/17/22 09/17/22 Rx mg tablet tabs Allergies Allergy/AdvReac Type Severity Reaction Status Date / Time bupropion [From Wellbutrin] Allergy Unknown unknown Verified 09/17/22 08:16 citalopram Allergy Unknown unknown Verified 09/17/22 08:16 fluoxetine [From Prozac] Allergy Unknown unknown Verified 09/17/22 08:16 paroxetine [From Paxil] Allergy Unknown unknown Verified 09/17/22 08:16 sertraline [From Zoloft] Allergy Unknown Unknown Verified 09/17/22 08:16 venlafaxine [From Effexor] Allergy Unknown Unknown Verified 09/17/22 08:16 [facility] Anesthesia Medical History Alcohol abuse, uncomplicated Bipolar II disorder Elevated PSA Erectile disorder, generalized, mild Essential (primary) hypertension Gastro-esophageal reflux disease without esophagitis History of colon polyps History of upper gastrointestinal bleeding Major depressive disorder, recurrent, unspecified Palmar fascial fibromatosis [dupuytren] Panic disorder Surgical History History of arthroplasty of knee History of colonoscopy 01/19/2019-REPEAT IN 3 YEARS History of nasal septoplasty History of shoulder surgery Family History Other Cancer Diabetes Hypertension Social History Smoking and tobacco status: current every day smoker Alcohol intake: current Household members: spouse Housing: House Marital status: Current gender identity: Male Data Anesthesia 09/17/22 08:10 BMP 09/17/22 08:10 Sodium 137 Potassium 3.5 Chloride 97 L Carbon Dioxide 26 BUN 9 Creatinine 1.0 Glucose 92 Calcium 9.6 Cardiac Studies: No Data to Display
[2022-09-18] VITALS (12 sets, daily range): BP systolic 137–219; BP diastolic 89–125; PULSE 56–87; RESP 17–19; TEMP 36.1–37.2; O2SAT 92–98
--- NOTE | 2022-09-18 | XR_ITS ---
WS: [id number] Exam: XR lumbar spine 1V [id number] Date/Time of Exam: 09/18/2022 12:00 AM Reason For Exam: OPERATIVE PROCEDURE Single anterior posterior C-arm image of the lower lumbar spine is obtained for intraoperative purpos es.
[2022-09-18] MEDS: sodium chloride 0.9% 1,000 ML 30 ML IV (09:07)
[2022-09-18] MEDS: HYDROmorphone 1 mg/mL INJ 1 mL 0.5 MG IVP (09:14)
--- NOTE | 2022-09-18 09:32 | ANES.PAUD2 ---
Pre-Anesthetic Update Pre-Anesthetic Assessment: Date of Surgery/Procedure: 09/18/22 Preop Diagnosis: Left foot drop, lumbar stenosis with neurogenic claudication Proposed Procedure: Operation Date: 09/18/22 10:10 Proposed Procedures p Lumbar Spine Decompression:LT of L4/5 L5-S1 [id number] M21.372,M51.36(Left) - Pedrokrishna Pugh, DO Any changes to Pre-Anesthetic Assessment?: No Last Intake: Intake Last Liquid Date 09/17/22 Last Liquid Time 20:30 Last Solid Date 09/17/22 Last Solid Time 20:30 Labs Last 48hrs: BMP 09/17/22 08:10 Sodium 137 Potassium 3.5 Chloride 97 L Carbon Dioxide 26 BUN 9 Creatinine 1.0 Glucose 92 Calcium 9.6 Vitals: Temperature 98.9 F 09/18/22 08:49 Temperature Source Temporal Artery S can 09/18/22 08:49 Pulse Rate 70 09/18/22 08:49 Respiratory Rate 18 09/18/22 09:14 Respiratory Effort 09/18/22 09:14 Respiratory Depth Normal 09/18/22 09:14 Respiratory Patter n 09/18/22 09:14 Blood Pressure 153/89 09/18/22 08:49 Blood Pressure Aleshia n 110 09/18/22 08:49 Pulse Oximetry 94 09/18/22 08:49 Oxygen Delivery Me thod 09/18/22 08:49 Exam: Pre-Anes Outpt Exam: alert, oriented x 3, clear to auscultation bilaterally and regular rate & rhythm Cardiac Studies: No Data to Display
--- NOTE | 2022-09-18 11:27 | W.PM.OPSUD ---
Surgery/Procedure H&P Update DATE OF PROCEDURE: September 18, 2022 DATE H&P PERFORMED: 09/12/22 H&P UPDATE INFORMATION: I have reviewed H&P completed within last 30 days, I have examined patient prior to procedure and No changes to prior documentation PREOP DIAGNOSIS: Left foot drop, lumbar stenosis with neurogenic claudication PLANNED PROCEDURE: Operation Date: 09/18/22 10:10 Proposed Procedures p Lumbar Spine Decompression:LT of L4/5 L5-S1 [id number],41039 M21.372,M51.36(Left) - Pedro Pugh DO
[2022-09-18] MEDS: ceFAZolin 2,000 MG in sodium chloride 0.9% (plus) 50 ML 100 MG IV (11:44)
[2022-09-18] MEDS: lidocaine-epi 1% 20 mL INJ INJECTION (12:50)
--- NOTE | 2022-09-18 13:35 | P.OP_ITS ---
Operative Report Date of procedure: September 18, 2022 Pre-op diagnosis: Preop Diagnosis Left foot drop, lumbar stenosis with neurogenic claudication Post-op diagnosis: same Procedure done: 1. L4/5 laminectomy with patial facetectomy 2. L5/S1 laminectomy with partial facetectomy Surgeon: Pedro Pugh Sports Equipment Repairer: Nolberto Moore Sports Equipment Repairer: The operating room surgical technologist, Nolberto Moore, PAC was needed for his expertise under the microscope. He was important and necessary throughout the procedure to complete in a safe and timely manner. He assisted with patient positioning prepping and draping tissue retraction suctioning of the operative field protection of the dural sac and tissue closure Estimated blood loss (mL): 20 Procedure: 1. L4/5 laminectomy with patial facetectomy 2. L5/S1 laminectomy with partial facetectomy Patient is brought to the operative suite. After undergoing anesthesia they are placed in the prone position. All areas of impingement are well padded. Patient is then prepped and draped in the normal sterile fashion. A skin incision is made over the L4/5 level. This is confirmed under c-arm guidance. A series of dilators are passed and the tubular retractor is docked on the L4 lamina. A bovie is used to clear the soft tissue off the lamina and the L 4/5 facet joint. A high speed dalia is then used to perform the laminectomy and take down the medial aspect of the L 4/5 facet joint. A kerrison rongeure was then used to take down the remaining lamina and smooth the edge of the laminectomy up to the point where the ligamentum flavum attaches. Attention was then brought to the medial aspect of the facet joint. The remaining medial aspect of the superior and inferior aspect of the facet joint were taken down with the kerrison from the pedicle of L4 to L 5. The facet joint had significant hypertrophy. Attention was then brought to the Ligamentum Flavum. The ligament was taken down from the lamina of L4 to L5 and out medially to the remaining facet joint. The ligament was thick. The dura was then exposed. The dura was in good repair. The L4 nerve was then traced with a curette out the L4/5 foramen and found to be adequately decompressed. The L5 nerve was traced with a curette around the L5 pedicle. The lateral recess was opened with a kerrison helping to further decompress the L5 nerve. Wound is then irrigated copiously with saline and surgiflo is used to stop any bleeding. The tubular retractor is removed and the A skin incision is made over the L5/S1 level. This is confirmed under c-arm guidance. A series of dilators are passed and the tubular retractor is docked on the L5 lamina. A bovie is used to clear the soft tissue off the lamina and the L 5/S1 facet joint. A high speed dalia is then used to perform the laminectomy and take down the medial aspect of the L 5/S1 facet joint. A kerrison rongeure was then used to take down the remaining lamina and smooth the edge of the laminectomy up to the point where the ligamentum flavum attaches. Attention was then brought to the medial aspect of the facet joint. The remaining medial aspect of the superior and inferior aspect of the facet joint were taken down with the kerrison from the pedicle of L5 to S1. The facet joint had significant hypertrophy. Attention was then brought to the Ligamentum Flavum. The ligament was taken down from the lamina of L5 to S1 and out medially to the remaining facet joint. The ligament was thick. The dura was then exposed. The dura was in good repair. The L5 nerve was then traced with a curette out the L5/S1 foramen and found to be adequately decompressed. The S1 nerve was traced with a curette around the S1 pedicle. The lateral recess was opened with a kerrison helping to further decompress the S1 nerve. Wound is then irrigated copiously with saline and surgiflo is used to stop any bleeding. The tubular retractor is removed and the wound is closed with vicryl and monocryl suture. Glue is then used to protect the wound. A sterile dressing is then placed. Patient was then placed in the supine position and transferred to the PACU in stable condition.
[2022-09-18] MEDS: oxyCODONE-APAP 10-325 mg Tablet 1 TAB PO (14:04)
[2022-09-18] MEDS: metoprolol tartrate 1 mg/1 mL SDV 5 mL 5 MG IVP (14:27)
[2022-09-18] MEDS: hyDRALAzine 20 mg/mL INJ 1 mL 10 MG IVP (14:50)
--- NOTE | 2022-09-18 15:03 | PC.NURSE ---
Patient had elevation in blood pressure upon arrival to OPS post op. Dr. Boudreaux notified, after assessment Dr. Boudreaux ordered metoprolol 5mg IVP, hydralazine 10mg IVP. blood pressure responded well (see vital signs) and patient instructed to monitor blood pressure throughout evening and take oral medications if blood pressure begins to rise again. Also instructed to watch for signs/symptoms of stroke and heart attack and to go to ER if any present.
--- NOTE | 2022-09-18 16:45 | ANE.PACU2 ---
Inpatient post-anesthesia follow up: Airway intact: Yes Vital signs: Temperature 97.8 F Pulse Rate 62 Respiratory Rate 18 Blood Pressure 177/106 Pulse Oximetry 98 Oxygen Delivery Me thod Room Air Oxygen Flow Rate Fraction of Inspir ed Oxygen Hydration adequate: Yes Nausea and vomiting: No Pain level: 4 Mental status: Baseline Additional Comments: Hypertensive postop, c/o visual field defect OS triangle shaped in lateral field. Discussed f/u with primary care and ophalmology.
== END 2022-09-18 15:09 | disposition home or self-care (01) ==
PROVIDERS: Anesthesiology; PCP Emergency Medicine Emergency Medical Services; Visit Provider Orthopaedic Surgery
PROC: (CPT 63005; principal; 2022-09-18 10:00)
DX: M48.062 Spinal stenosis, lumbar region with neurogenic claudication (principal); J44.9 Chronic obstructive pulmonary disease, unspecified; I10 Essential (primary) hypertension; K21.9 Gastro-esophageal reflux disease without esophagitis; F17.200 Nicotine dependence, unspecified, uncomplicated
CPT/HCPCS: 63047; 63048; 72020; 76000; 80048; J0360; J0690; J1100; J1170; J2250; J2405; J2704; J3010; J3490; J7030

== ENCOUNTER → 2022-09-24 08:25 | Outpatient (BNVA) | payer OTHER, SELFPAY | PROVIDERS: PCP Emergency Medicine Emergency Medical Services; Visit Provider Orthopaedic Surgery | DX: Z47.89 Encounter for other orthopedic aftercare (principal) | CPT/HCPCS: 72100; 99024 ==

== ENCOUNTER → 2022-10-15 10:23 | Outpatient (BNVA) | payer OTHER, SELFPAY | PROVIDERS: PCP Emergency Medicine Emergency Medical Services; Visit Provider Orthopaedic Surgery | DX: Z47.89 Encounter for other orthopedic aftercare (principal) | CPT/HCPCS: 99024 ==

== ENCOUNTER → 2022-11-26 10:03 | Outpatient (BNVA) | payer OTHER, SELFPAY | PROVIDERS: PCP Emergency Medicine Emergency Medical Services; Visit Provider Orthopaedic Surgery | DX: M21.372 Foot drop, left foot (principal) | CPT/HCPCS: 99024 ==

== ENCOUNTER → 2023-02-04 11:07 | Outpatient (BNVA) | payer OTHER, SELFPAY | PROVIDERS: PCP Emergency Medicine Emergency Medical Services; Visit Provider Orthopaedic Surgery | DX: Z48.89 Encounter for other specified surgical aftercare; M21.379 Foot drop, unspecified foot | CPT/HCPCS: 99213 ==

== ENCOUNTER → 2023-02-26 12:44 | Outpatient (BNVA) | payer OTHER, SELFPAY | PROVIDERS: PCP Emergency Medicine Emergency Medical Services; Visit Provider Otolaryngology | DX: J30.0 Vasomotor rhinitis (principal); K13.79 Other lesions of oral mucosa | CPT/HCPCS: 99203 ==

== ENCOUNTER → 2023-04-02 12:17 | Outpatient (BNVA) | payer OTHER, SELFPAY | PROVIDERS: PCP Emergency Medicine Emergency Medical Services; Visit Provider Specialist | DX: M25.551 Pain in right hip (principal); M70.61 Trochanteric bursitis, right hip | CPT/HCPCS: 73502; 99214 ==

== ENCOUNTER 2023-07-17 14:03 | Emergency (ER) | payer OTHER, SELFPAY ==
[2023-07-17 14:31] VITALS: BP 121/89; PULSE 82; RESP 18; TEMP 36.8; O2SAT 100
--- NOTE | 2023-07-17 14:41 | ED_ITS ---
HPI - Abdominal Pain 2 General: Chief Complaint: Abdominal Pain Stated Complaint: dr george, N/V, right side abd pain Time Seen by Provider: 07/17/23 14:41 History of Present Illness: 62-year-old male patient comes in today for complaints of right-sided abdominal pain with nausea and vomiting for the last 4 days. Patient reports he has been ill for about 10 to 14 days and was given some steroids for respiratory infection. Patient reports a history of pancreatitis and he thinks the steroids might of caused a flare of his pancreatitis as he has had problems with steroids and issues with his pancreas before. Patient states about 15 years ago he had a blunt force trauma to the abdomen that caused his pancreatitis. Patient denies heart disease. Patient is a chronic tobacco smoker. Patient does report hypertension, GERD, and rosacea. Patient has a history of umbilical hernia repair. Patient denies any other abdominal surgeries. Associated Symptoms: Reports nausea and vomiting Review of Systems 2 General: Reports: 10 or more systems reviewed and unremarkable except in HPI and below GI: Reports: abdominal pain, nausea and vomiting PFSH ED 2 PFSH: Medical History Hemorrhoids, external Essential (primary) hypertension Bipolar II disorder Alcohol abuse, uncomplicated Palmar fascial fibromatosis [dupuytren] History of colon polyps History of upper gastrointestinal bleeding Erectile disorder, generalized, mild Elevated PSA Panic disorder Major depressive disorder, recurrent, unspecified Gastro-esophageal reflux disease without esophagitis Surgical History History of colonoscopy 01/19/2019-REPEAT IN 3 YEARS History of nasal septoplasty History of arthroplasty of knee History of shoulder surgery Family History Other Cancer Diabetes Hypertension Social History Smoking and tobacco/nicotine status: current every day tobacco/nicotine user Alcohol intake: current Alcohol intake frequency: few times a month Household members: spouse Housing: House Marital status: Current gender identity: Male Physical Exam 2 Const: COMMON NORMALS: alert HENMT: COMMON NORMALS: normocephalic HEAD & SCALP: normocephalic Neck/C-Spine: COMMON NORMALS: full ROM Chest: COMMONS NORMALS: normal inspection of the chest Resp: COMMON NORMALS: normal respiratory effort and clear to auscultation bilaterally AUSCULTATION: clear to auscultation bilaterally Cardio: COMMON NORMALS: regular rate and regular rhythm RATE: regular rate RHYTHM: regular rhythm GI: COMMON NORMALS: Soft to palpation PALPATION: Yes Soft to palpation and Yes Tenderness to palpation present (GI) Details: RUQ : COMMON NORMALS: Yes no CVA tenderness BLADDER/KIDNEY EXAM: Yes no CVA tenderness Back/Pelvis: COMMON NORMALS: no CVA tenderness Extremity: COMMON NORMALS: normal to inspection and full ROM Neuro: SENSORIUM/ORIENTATION: Yes alert Skin: COMMON NORMALS: turgor normal GENERAL SKIN EXAM: turgor normal Course 2 Vital Signs: Vital signs: Vital Signs Temperature 98.2 F 07/17/23 14:31 Pulse Rate 66 07/17/23 15:11 Respiratory Rate 15 07/17/23 16:19 Blood Pressure 136/96 07/17/23 15:11 Pulse Oximetry 98 07/17/23 16:19 Oxygen Delivery Me thod Room Air 07/17/23 14:31 MDM - Abdominal Pain Medical Decision Making 62-year-old male patient comes in with abdominal pain for the last 4 days. Patient was states he has a illness for the last 10 to 14 days that he has been treated with antibiotics and steroids for. Patient believes the steroids might have aggravated his pancreatitis. Patient reports a recurrent pancreatitis since having a blunt force trauma to the abdomen about 18 years ago. Patient reports that he has had problems before in the past for antibiotics or steroids has caused him to have a bout of pancreatitis. On exam respirations are even lungs are clear to auscultation. Right upper quadrant abdominal tenderness is noted. Abdomen is soft. Vital signs are normal. Differential diagnosis includes but not limited to gallbladder disease, pancreatitis, dehydration, gastritis, diverticulitis. CT noted acute pancreatitis. Laboratory values noted some dehydration with a creatinine 1.5, potassium 2.9, sodium 135. Patient was infused with 2 L of IV crystalloid solution. Patient was able to tolerate oral fluids. Patient's pain was improved significantly after fentanyl and ondansetron. Patient be continued on hydrocodone and ondansetron at home. Patient was recommended to continue with clear liquid diet and follow-up or return to the ER for worsening symptoms. Lab Data 07/17/23 14:23 07/17/23 14:23 Labs/Radiology: Radiology Impressions Abdomen/Pelvis CT 07/17/23 14:46 IMPRESSION: Acute pancreatitis. Laboratory Results WBC 6.69 10^3/uL (3.29-11.43) 07/17/23 14:23 RBC 4.39 10^6/uL (3.85-5.65) 07/17/23 14:23 Hgb 15.90 g/dL (11.27-16.99) 07/17/23 14:23 Hct 44.4 % (37-53) 07/17/23 14:23 MCV 101.1 fl (82-101) H 07/17/23 14:23 MCH 36.2 pg (27-33) H 07/17/23 14:23 MCHC 35.8 g/dL (30-55) 07/17/23 14:23 RDW 13.1 % (12.1-15.1) 07/17/23 14:23 Plt Count 262 10^3/cmm (157-399) 07/17/23 14:23 MPV 10.1 fL (7.4-10.4) 07/17/23 14:23 Neut % (Auto) 67.8 % 07/17/23 14:23 Lymph % (Auto) 17.8 % 07/17/23 14:23 [place] % (Auto) 13.2 % 07/17/23 14:23 Eos % (Auto) 0.3 % 07/17/23 14:23 Baso % (Auto) 0.3 % 07/17/23 14:23 Neut # (Auto) 4.54 10^3/uL (1.8-7.7) 07/17/23 14:23 Lymph # (Auto) 1.2 10^3/uL (0.8-4.8) 07/17/23 14:23 [place] # (Auto) 0.9 10^3/uL (0.2-0.9) 07/17/23 14:23 Eos # (Auto) 0.0 10^3/uL (0.0-0.8) 07/17/23 14:23 Baso # (Auto) 0.0 10^3/uL (0.0-0.1) 07/17/23 14:23 Nucleated RBC % (auto) 0 % 07/17/23 14:23 Nucleated RBCs # 0.0 /100WBC 07/17/23 14:23 Sodium 135 mmol/L (136-145) L 07/17/23 14:23 Potassium 2.9 mmol/L (3.5-5.1) L 07/17/23 14:23 Chloride 93 mmol/L (98-107) L 07/17/23 14:23 Carbon Dioxide 24 mmol/L (22-29) 07/17/23 14:23 Anion Gap 20.9 (5-19) H 07/17/23 14:23 BUN 17 mg/dL (8-23) 07/17/23 14:23 Creatinine 1.5 mg/dL (0.7-1.2) H 07/17/23 14:23 GFR Calculation 47.3 mL/min (90-130) L 07/17/23 14:23 Glucose 105 mg/dL (65-115) 07/17/23 14:23 Calculated Osmolality 282 mOsm/kg (285-295) L 07/17/23 14:23 Calcium 10.8 mg/dL (8.5-10.5) H 07/17/23 14:23 Total Bilirubin 1.6 mg/dL (0.15-1.2) H 07/17/23 14:23 AST 20 U/L (0-40) 07/17/23 14:23 ALT 15 U/L (0-41) 07/17/23 14:23 Alkaline Phosphatase 66 U/L (40-130) 07/17/23 14:23 Total Protein 7.9 g/dL (6.6-8.7) 07/17/23 14:23 Albumin 4.1 g/dL (3.5-5.2) 07/17/23 14:23 Globulin 3.8 g/dL (1.3-4.6) 07/17/23 14:23 Lipase 193 U/L (13-60) H 07/17/23 14:23 All radiology interpretation(s) finalized by discharge Discharge Plan Discharge Patient Disposition: Home Clinical Impression: Acute pancreatitis Qualifiers: Pancreatitis type: unspecified pancreatitis type Acute pancreatitis complication: no infection or necrosis Qualified Code(s): K85.90 - Acute pancreatitis without necrosis or infection, unspecified Condition: Stable Prescriptions: New hydrocodone-acetaminophen 5-325 mg tablet 1 tab PO Q6H PRN (Reason: pain) Qty: 10 0RF ondansetron 4 mg tablet,disintegrating 4 mg PO Q8H PRN (Reason: nausea and vomiting) Qty: 10 0RF No Action amlodipine 5 mg tablet 5 mg PO DAILY losartan 25 mg tablet 12.5 mg PO DAILY pantoprazole 40 mg tablet,delayed release (DR/EC) 40 mg PO DAILY hydrochlorothiazide 25 mg tablet 25 mg PO DAILY ipratropium bromide 42 mcg (0.06 %) spray,non-aerosol 2 spray intranasal QID 360 Days Qty: 15 11RF Rx Instructions: administer into each nostril levofloxacin 750 mg tablet 750 mg PO DAILY meloxicam 15 mg tablet 15 mg PO DAILY Qty: 30 0RF (DME) AFO Brace See Rx Instructions .Route .MEDSUPPLY Qty: 1 0RF Rx Instructions: As directed ondansetron 4 mg tablet,disintegrating 4 mg PO Q6H PRN (Reason: nausea and vomiting) Qty: 15 1RF prednisone 5 mg tablet See Rx Instructions .ROUTE .COMPLEX Rx Instructions: 50mg for 2 days 40mg for 2 days 30mg for 2 days 20mg for 2 days 10mg for 2 days 5 mg for 2 days Discharge Orders: Discharge ED (Routine); Ordered 07/17/23 Ordered By: Jeramy Cat Referrals: Ryan Lew, [Primary Care Provider] - Discharge Diet: Advance as tolerated Discharge Activity: Increase activity as tolerated Patient Instructions: Pancreatitis (ED) Activity Restrictions/Additional Instructions: Home and rest. Clinically diet until abdominal pain improves. Then increase diet slowly over 24 hours to a bland diet. Follow-up with primary care as needed for reevaluation in 3 to 5 days. Return to ED for new concerns. Coding Level of Care Code ED Press Worker Helper for Terrie Calhoun
[2023-07-17 14:45] LABS: Basophils % 0.3 %; Eosinophils % 0.3 %; Hematocrit 44.4 % (37-53); Lymphocytes # 1.2 10^3/uL (0.8-4.8); Lymphocytes % 17.8 %; Mean Corpuscular HGB Conc 35.8 g/dL (30-55); Mean Corpuscular Hemoglobin 36.2 pg (27-33); Mean Corpuscular Volume 101.1 fl (82-101); Mean Platelet Volume 10.1 fL (7.4-10.4); Monocytes # 0.9 10^3/uL (0.2-0.9); Monocytes % 13.2 %; Neutrophils # 4.54 10^3/uL (1.8-7.7); Neutrophils % 67.8 %; Nucleated Red Blood Cells % 0 %; Platelet Count 262 10^3/cmm (157-399); Red Blood Count 4.39 10^6/uL (3.85-5.65); Red Cell Distribution Width 13.1 % (12.1-15.1); White Blood Count 6.69 10^3/uL (3.29-11.43)
--- NOTE | 2023-07-17 14:46 | CTR_ITS ---
PROCEDURE INFORMATION: Exam: CT Abdomen And Pelvis With Contrast Exam date and time: 07/17/2023 3:41 PM Age: 62 years old Clinical indication: Abdominal pain; Localized; Right upper quadrant (ruq); Additional info: Ruq pain, epigastric tenderness TECHNIQUE: Imaging protocol: Computed tomography of the abdomen and pelvis with contrast. Radiation optimization: All CT scans at this facility use at least one of these dose optimization techniques: automated exposure control; mA and/or kV adjustment per patient size (includes targeted exams where dose is matched to clinical indication); or iterative reconstruction. Contrast material: OMNI 350; Contrast volume: 100 ml; Contrast route: INTRAVENOUS (IV); COMPARISON: CT abdomen pelvis w con* [id number] 08/14/2020 8:42 AM RADIATION DOSE METRICS: Total DLP (mGy-cm): 989 FINDINGS: Liver: Hepatic steatosis. Gallbladder and bile ducts: No acute findings. Pancreas: Peripancreatic inflammation. No loculated collection. No ductal dilatation.. Spleen: No splenomegaly. Adrenal glands: No mass. Kidneys and ureters: No stones or hydronephrosis. Stomach and bowel: No obstruction. Appendix: No evidence of appendicitis. Intraperitoneal space: No free air. No significant fluid collection. Vasculature: No abdominal aortic aneurysm. Lymph nodes: No enlarged lymph nodes. Urinary bladder: Incompletely distended circumferential wall thickening likely secondary to outlet obstruction. Reproductive: Prostatomegaly. Bones/joints: No acute findings. Soft tissues: No acute findings. CT/CT abdomen pelvis w con* [id number] IMPRESSION: Acute pancreatitis.
[2023-07-17] MEDS: ondansetron 2 mg/ML SDV 2 mL 4 MG IVP (15:04)
[2023-07-17 15:05] VITALS: RESP 19; O2SAT 98
[2023-07-17] MEDS: fentaNYL 50 mcg/mL INJ 2mL IVP ×2 (15:05→16:19)
[2023-07-17 15:08] LABS: Alanine Aminotransferase 15 U/L (0-41); Albumin Level 4.1 g/dL (3.5-5.2); Alkaline Phosphatase 66 U/L (40-130); Anion Gap 20.9 (5-19); Aspartate Amino Transferase 20 U/L (0-40); Blood Urea Nitrogen 17 mg/dL (8-23); Calcium 10.8 mg/dL (8.5-10.5); Carbon Dioxide 24 mmol/L (22-29); Chloride 93 mmol/L (98-107); Globulin 3.8 g/dL (1.3-4.6); Glomerular Filtration Rate 47.3 mL/min (90-130); Glucose 105 mg/dL (65-115); Lipase 193 U/L (13-60); Osmolality Calculated 282 mOsm/kg (285-295); Sodium 135 mmol/L (136-145); Total Bilirubin 1.6 mg/dL (0.15-1.2); Total Protein 7.9 g/dL (6.6-8.7)
[2023-07-17] MEDS: ketorolac 30 mg/mL INJ 15 MG IVP (15:08)
[2023-07-17] MEDS: sodium chloride 0.9% 1,000 ML 999 ML IV ×2 (15:09→16:20)
[2023-07-17 15:11] VITALS: BP 136/96; PULSE 66; RESP 17; O2SAT 91
[2023-07-17 15:15] LABS: Potassium 2.9 mmol/L (3.5-5.1)
[2023-07-17] MEDS: iohexol 350 mg/mL 500 mL Btl (per mL) IV (15:45)
[2023-07-17 16:19] VITALS: RESP 15; O2SAT 98
[2023-07-17] MEDS: HYDROcodone-acetaminophen 10-325 mg Tablet 1 TAB PO (17:52)
[2023-07-17 17:53] VITALS: PULSE 72; RESP 16; O2SAT 98
== END 2023-07-17 17:42 | disposition home or self-care (01) ==
PROVIDERS: Emergency Medicine; Emergency Provider Nurse Practitioner Family; PCP Emergency Medicine Emergency Medical Services
DX: K85.90 Acute pancreatitis without necrosis or infection, unspecified (principal); Z72.0 Tobacco use; I10 Essential (primary) hypertension
CPT/HCPCS: 36415; 74177; 80053; 83690; 85025; 96361; 96374; 96375; 96376; 99285; J1885; J2405; J3010; J7030; Q9967

== ENCOUNTER → 2023-10-30 10:29 | Outpatient (BNVA) | payer OTHER, SELFPAY | PROVIDERS: PCP Nurse Practitioner Family; Visit Provider Nurse Practitioner Family | DX: J30.0 Vasomotor rhinitis (principal); R42 Dizziness and giddiness | CPT/HCPCS: 80053; 85025 ==

== ENCOUNTER 2023-11-01 11:16 | Outpatient (CLI) | payer OTHER, SELFPAY ==
[2023-11-01 12:29] LABS: Blood Urea Nitrogen 8 mg/dL (8-23); Calcium 8.8 mg/dL (8.5-10.5); Carbon Dioxide 29 mmol/L (22-29); Chloride 79 mmol/L (98-107); Glomerular Filtration Rate 61.1 mL/min (90-130); Glucose 98 mg/dL (65-115); Osmolality Calculated 244 mOsm/kg (285-295)
[2023-11-03 10:55] LABS: Sodium 118 mmol/L (136-145)
== END 2023-11-01 11:17 | disposition home or self-care (01) ==
PROVIDERS: PCP Nurse Practitioner Family; Visit Provider Nurse Practitioner Family
DX: E87.6 Hypokalemia (principal)
CPT/HCPCS: 80048

== ENCOUNTER 2023-11-02 12:34 | Outpatient (CLI) | payer OTHER, SELFPAY ==
[2023-11-02 13:03] LABS: Anion Gap 15.1 (5-19); Blood Urea Nitrogen 8 mg/dL (8-23); Carbon Dioxide 27 mmol/L (22-29); Chloride 83 mmol/L (98-107); Glomerular Filtration Rate 55.8 mL/min (90-130); Glucose 100 mg/dL (65-115); Osmolality Calculated 252 mOsm/kg (285-295); Potassium 3.1 mmol/L (3.5-5.1); Sodium 122 mmol/L (136-145)
== END 2023-11-02 12:35 | disposition home or self-care (01) ==
PROVIDERS: PCP Nurse Practitioner Family; Visit Provider Nurse Practitioner Family
DX: E87.6 Hypokalemia (principal)
CPT/HCPCS: 80048

== ENCOUNTER → 2023-11-04 11:32 | Outpatient (BNVA) | payer OTHER, SELFPAY | PROVIDERS: PCP Nurse Practitioner Family; Visit Provider Nurse Practitioner Family | DX: E87.6 Hypokalemia (principal) | CPT/HCPCS: 80048 ==

== ENCOUNTER → 2023-11-11 15:48 | Outpatient (BNVA) | payer OTHER, SELFPAY | PROVIDERS: PCP Nurse Practitioner Family; Visit Provider Nurse Practitioner Family | DX: R42 Dizziness and giddiness (principal) | CPT/HCPCS: 80048 ==

== ENCOUNTER → 2023-11-27 09:37 | Outpatient (BNVA) | payer OTHER, SELFPAY | PROVIDERS: PCP Nurse Practitioner Family; Visit Provider Nurse Practitioner Family | DX: R42 Dizziness and giddiness (principal); K85.90 Acute pancreatitis without necrosis or infection, unspecified; E87.6 Hypokalemia; J44.9 Chronic obstructive pulmonary disease, unspecified; R06.02 Shortness of breath; I25.10 Atherosclerotic heart disease of native coronary artery without angina pectoris; F17.200 Nicotine dependence, unspecified, uncomplicated | CPT/HCPCS: 80053; 80061; 83690; 85025 ==

== ENCOUNTER → 2023-12-08 09:44 | Outpatient (BNVA) | payer OTHER, SELFPAY | PROVIDERS: PCP Nurse Practitioner Family; Visit Provider Nurse Practitioner Family | DX: R42 Dizziness and giddiness (principal); E87.6 Hypokalemia | CPT/HCPCS: 80053; 80061 ==

== ENCOUNTER → 2024-02-05 08:05 | Outpatient (BNVA) | payer OTHER, SELFPAY | PROVIDERS: PCP Nurse Practitioner Family; Visit Provider Nurse Practitioner Family | DX: I10 Essential (primary) hypertension (principal); K85.90 Acute pancreatitis without necrosis or infection, unspecified | CPT/HCPCS: 80053; 83690; 83735; 85025 ==

== ENCOUNTER 2024-02-06 11:47 | Outpatient (CLI) | payer OTHER, SELFPAY ==
[2024-02-06 11:49] VITALS: BMI 26.8
--- NOTE | 2024-02-06 11:49 | ECG_ITS ---
[facility] Test Date: 2024-02-06 Pat Name: Lorenzo Nunn Department: Room: Gender: Male Feeder/Folder: Merary Youssef : 1960 Requested By: Tony Mas Order Number: [id number] Cordova MD: Aamir Winters M.D. Interpretive Statements NAME OF STUDY: TREADMILL STRESS TEST INDICATION: [Exertional SOB, ] EXERCISE DATA: The patient was exercised by Vince protocol. Baseline heart rate was 57 beats per minute. Baseline blood pressure was 157/91 millimeters of mercury. Maximal predicted heart rate was 156 beats per minute. Maximum heart rate achieved was 128 which was 82% of the maximum predicted heart rate. Maximum blood pressure was 202/76 millimeters of mercury. Total exercise time was 6 minutes 36 seconds. Maximum METs achieved was 7. The reason for ending the test was inability to achieve target heart rate secondary to leg fatigue. The patient complained of shortness of breath during the stress test, which then resolved at the end of the test. ELECTROCARDIOGRAM: BASELINE: Showed sinus rhythm, normal axis, no significant ST-T changes at the baseline noted. [] EXERCISE: At the peak exercise level, [] No significant ST-T changes suggestive of ischemia noted. [] RECOVERY: During the recovery period, heart rate dropped appropriately. No significant ST-T changes in the recovery suggestive of ischemia noted. [] CONCLUSION: 1. Exercise capacity is fair. 2. Heart rate response was suboptimal. 3. Blood pressure response was hypertensive 4. Symptoms not suggestive of ischemia. 5. Patient could not reach target heart rate. At maximal heart rate achieved no findings of ischemia seen however cannot rule out ischemia (as sensitivity of study decreases) with suboptimal heart rate achieved secondary to leg pain. Recommend alternative study with imaging to assess for ischemia Electronically Signed On 02-13-2024 14:02:52 CDT by Aamir Winters M.D. [email or web address]
[2024-02-06 12:27] VITALS: BP 170/89; PULSE 76
== END 2024-02-06 11:48 | disposition home or self-care (01) ==
LOC: CDL 11:48
PROVIDERS: PCP Nurse Practitioner Family; Visit Provider Nurse Practitioner Family
DX: R06.02 Shortness of breath (principal); R94.39 Abnormal result of other cardiovascular function study
CPT/HCPCS: 93017

== ENCOUNTER → 2024-03-22 09:51 | Outpatient (BNVA) | payer OTHER, SELFPAY | PROVIDERS: PCP Nurse Practitioner Family; Visit Provider Nurse Practitioner Family | DX: L71.8 Other rosacea (principal); L57.0 Actinic keratosis; L82.1 Other seborrheic keratosis; L57.8 Other skin changes due to chronic exposure to nonionizing radiation; L02.222 Furuncle of back [any part, except buttock and flank] | CPT/HCPCS: 17000; 17110; 99214 ==

== ENCOUNTER → 2024-03-24 12:36 | Outpatient (BNVA) | payer OTHER, SELFPAY | PROVIDERS: PCP Nurse Practitioner Family; Referring Provider Nurse Practitioner Family; Visit Provider Internal Medicine | DX: I49.8 Other specified cardiac arrhythmias (principal); R07.9 Chest pain, unspecified | CPT/HCPCS: 93005; 99204 ==

== ENCOUNTER 2024-06-22 13:00 | Oncology outpatient (recurring) (ONCR) | payer OTHER, SELFPAY ==
--- NOTE | 2024-06-24 09:18 | N.ONRAD NP_ITS ---
Radiation Oncology New Patient Visit Patient: Lorenzo Nunn MR#: [id number] : 1960> Age: 63> Sex: Male> Dictated by: Dr. 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 Chief Complaint / History of Present Illness: Patient is 63-year-old gentleman who initially presented with left ear pain. He actually had felt that perhaps he had like an abscess in his teeth. He actually went and had all his teeth pulled in preparation for dentures. He got his dentures but they did not stay right and when he went back to get them readjusted that was when he was found to have the lesion on the left side of his tongue posteriorly. Biopsy was done and then subsequently he has undergone a major resection done on 05/17/2024. This involved resection of the tonsil, base of tongue, floor of mouth, glossectomy and left neck dissection and trach placement along with a graft. Pathologically the margins were all quite close, all of the nodes were negative. Making his stage a T3 N0. His postop course was complicated by DTs and confusion as well as C. difficile and Pseudomonas pneumonia all of which have apparently resolved Current Medications: Amlodipine, cyclobenzaprine, diclofenac, hydrochlorothiazide, hydrocodone, meloxicam, montelukast, nicotine patch, Zofran, oxycodone acetaminophen, pantoprazole Allergies: Wellbutrin, citalopram, Prozac, Paxil, Zoloft, Effexor Medical History: No history of collagen vascular disease. No previous radiation therapy. Hypokalemia, rotator cuff tear, external hemorrhoids, hypertension, bipolar 2, alcohol abuse, Dupuytren's contracture, colon polyps, upper GI bleed, ED, elevated PSA, panic disorder, major depressive disorder, reflux Surgical History: Nasal septoplasty, arthroplasty of the knee, right shoulder surgery Family History: Family history positive for cancer Social History: He is a current every day smoker, alcohol use a few times a month, he lives with his Current Complaints / Review of Systems: . Patient is currently recovering from his surgery. Vital Signs: Performed on 06/22/2024 1:57 PM BMI - 24.738 kg/m2 (high), Height - 72 in, Weight - 182.4 lbs, Temperature - 97.8 f, Pulse - 100 /min, Respiration - 18 /min, O2 Sat - 95 % (low), Pain - 0, Fatigue - 0 and BP - 125/ 78 mm(hg). Physical Exam: General: Patient is in no apparent distress and accompanied by his . HEENT: Normocephalic atraumatic. Pupils are equal, sclera clear, extraocular muscles intact. Neck is supple without palpable cervical supraclavicular adenopathy. The incisions are nicely healed. Oral cavity reveals his tongue is somewhat tethered to the left. He has changes in the left tonsil which appear to be healing nicely. No lesions ulcerations or masses were noted. Pulmonary: Respiratory rate is regular nonlabored Cardiovascular: Regular rate and rhythm Abdomen: Patient has minimal adipose tissue. Extremities: Without obvious edema or lymphedema Neurological: Alert and orient x 3. Speech is hindered by the tethering of his tongue. 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 We also talked about observation. At this point I did review with him the simulation process. We discussed the daily treatment regiment. We reviewed the risks and side effects both acute and long-term. After answering all of his questions he has agreed to proceed with treatment. He will return in another week or so to undergo simulation and will begin his treatment shortly thereafter with a plan for 6-week course. Signed by: 06/24/2024 9:16:46 AM <<Signature on File>> Time spent on patient:60 CPT Code: CPT Code:
== END 2024-06-22 23:59 | disposition home or self-care (01) ==
LOC: ONCMED 13:01
PROVIDERS: PCP Nurse Practitioner Family; Visit Provider Radiology Radiation Oncology
DX: C04.9 Malignant neoplasm of floor of mouth, unspecified (principal); F17.290 Nicotine dependence, other tobacco product, uncomplicated
CPT/HCPCS: 99205

== ENCOUNTER 2024-06-23 06:30 | Outpatient (RCR) | payer OTHER, SELFPAY | END 2024-07-23 23:55 | disposition home or self-care (01) | LOC: SST 06:30 | PROVIDERS: Visit Provider Nurse Practitioner Family | DX: R13.12 Dysphagia, oropharyngeal phase (principal); D00.06 Carcinoma in situ of floor of mouth; R47.1 Dysarthria and anarthria | CPT/HCPCS: 92523; 92610 ==

== ENCOUNTER 2024-07-23 11:23 | Oncology outpatient (recurring) (ONCR) | payer OTHER, SELFPAY ==
--- NOTE | 2024-07-13 12:05 | ONCRAD TMN_ITS ---
Radiation Oncology Weekly Treatment Management Patient: Edouard Cerrato MR#: [id number] : 1960> Attending Physician: Dr. 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 ID: [id number], Energy: 6X, Dose/Fx (cGy): 200, #Fx: 2 / 30, Dose Correction (cGy): 0, Total Dose Delivered (cGy): 400, Start Date: 07/12/2024, Elapsed Days: 1 Reason for visit: The patient is being seen today as part of their regularly scheduled weekly on treatment visits to assess for acute toxicities from radiotherapy. Review of Systems: Patient has began to have some of his nerve endings come back to life. His jaw is aching today. Vital Signs: Performed on 07/13/2024 11:36 AM BMI - 25.362 kg/m2 (high), Height - 72 in, Weight - 187 lbs, Temperature - 96.7 f, Pulse - 49 /min (low), Respiration - 18 /min, O2 Sat - 98 %, Pain - 7, Fatigue - 0 and BP - 163/ 95 mm(hg)(high). Physical Exam: No changes on exam Imaging: Radiation therapy imaging related to accurate target localization (i.e. KV, MV and CBCT) was reviewed. Appropriate changes, if any, were made to ensure treatment accuracy. Plan: Will continue with his treatments as planned. He did ask today for help with gas money. He also does not think you have enough money to pay for refill on his pain medicine. Signed by: Dr. Olinda Rao 07/13/2024 12:03:40 PM
--- NOTE | 2024-07-20 13:22 | ONCRAD TMN_ITS ---
Radiation Oncology Weekly Treatment Management Patient: Lorenzo Nunn MR#: [id number] : 1960 Attending Physician: Dr. 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 ID: [id number], Energy: 6X, Dose/Fx (cGy): 200, #Fx: / 30, Dose Correction (cGy): 0, Total Dose Delivered (cGy): 1,400, Start Date: 07/12/2024, Elapsed Days: 8 Reason for visit: The patient is being seen today as part of their regularly scheduled weekly on treatment visits to assess for acute toxicities from radiotherapy. Review of Systems: Patient has noticed a metallic taste and some dry mouth Vital Signs: Performed on 07/20/2024 11:30 AM BMI - 25.66 kg/m2 (high), Height - 72 in, Weight - 189.2 lbs, Temperature - 97.7 f, Pulse - 50 /min (low), Respiration - 16 /min, O2 Sat - 96 %, Pain - 0, Fatigue - 0 and BP - 140/ 84 mm(hg). Physical Exam: On exam there is no changes Imaging: Radiation therapy imaging related to accurate target localization (i.e. KV, MV and CBCT) was reviewed. Appropriate changes, if any, were made to ensure treatment accuracy. Plan: I have written down some different things he can do for the dry mouth. We talked about the metallic taste and how that would eventually go away. Will continue with his treatments as planned. Signed by: Dr. Olinda Rao 07/20/2024 1:21:23 PM
== END 2024-07-23 23:59 | disposition home or self-care (01) ==
PROVIDERS: Visit Provider Radiology Radiation Oncology
DX: Z51.0 Encounter for antineoplastic radiation therapy (principal); C04.1 Malignant neoplasm of lateral floor of mouth
CPT/HCPCS: 77263; 77300; 77301; 77334; 77336; 77338; 77386; 99024

== ENCOUNTER 2024-07-24 06:30 | Outpatient (RCR) | payer OTHER, SELFPAY | END 2024-08-20 23:59 | disposition home or self-care (01) | LOC: SST 06:30 | PROVIDERS: Visit Provider Nurse Practitioner Family | DX: R13.12 Dysphagia, oropharyngeal phase (principal); D00.06 Carcinoma in situ of floor of mouth; R47.1 Dysarthria and anarthria | CPT/HCPCS: 92526 ==

== ENCOUNTER 2024-08-19 11:18 | Oncology outpatient (recurring) (ONCR) | payer OTHER, SELFPAY ==
--- NOTE | 2024-07-27 11:54 | ONCRAD TMN_ITS ---
Radiation Oncology Weekly Treatment Management Patient: Edouard Cerrato MR#: [id number] : 1960> Attending Physician: Dr. 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 ID: [id number], Energy: 6X, Dose/Fx (cGy): 200, #Fx: , Dose Correction (cGy): 0, Total Dose Delivered (cGy): 2,400, Start Date: 07/12/2024, Elapsed Days: 15 Reason for visit: The patient is being seen today as part of their regularly scheduled weekly on treatment visits to assess for acute toxicities from radiotherapy. Review of Systems: Patient still has metallic taste in his mouth. He still losing weight. He thinks he is getting 4000 violeta a day but have asked him to recheck his intake. Vital Signs: Performed on 07/27/2024 11:21 AM BMI - 24.738 kg/m2 (high), Height - 72 in, Weight - 182.4 lbs, Temperature - 98.2 f, Pulse - 59 /min (low), Respiration - 18 /min, O2 Sat - 96 %, Pain - 0, Fatigue - 0 and BP - 160/ 102 mm(hg)(high). Physical Exam: On exam his skin is without changes Imaging: Radiation therapy imaging related to accurate target localization (i.e. KV, MV and CBCT) was reviewed. Appropriate changes, if any, were made to ensure treatment accuracy. Plan: Continue with his treatments as planned. I encouraged him to try and eat different foods and to try and find something that does not have the metallic taste. We also talked about increasing his protein intake by adding collagen powder to some of his foods. Signed by: Dr. Olinda Rao 07/27/2024 11:53:37 AM
--- NOTE | 2024-08-12 10:04 | ONCRAD TMN_ITS ---
Radiation Oncology Weekly Treatment Management Patient: Edouard Cerrato MR#: [id number] : 1960> Attending Physician: Dr. 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 ID: [id number], Energy: 6X, Dose/Fx (cGy): 200, #Fx: , Dose Correction (cGy): 0, Total Dose Delivered (cGy): 4,000, Start Date: 07/12/2024, Elapsed Days: Reason for visit: The patient is being seen today as part of their regularly scheduled weekly on treatment visits to assess for acute toxicities from radiotherapy. Review of Systems: Patient continues to have the metallic taste in his mouth. Vital Signs: Performed on 08/10/2024 11:28 AM BMI - 25.525 kg/m2 (high), Height - 72 in, Weight - 188.2 lbs, Temperature - 97.8 f, Pulse - 52 /min (low), Respiration - 18 /min, O2 Sat - 96 %, Pain - 6, Fatigue - 0 and BP - 173/ 85 mm(hg)(high/). Physical Exam: Skin is mildly hyperpigmented Imaging: Radiation therapy imaging related to accurate target localization (i.e. KV, MV and CBCT) was reviewed. Appropriate changes, if any, were made to ensure treatment accuracy. Plan: Will continue with treatments as planned Signed by: Dr. Olinda Rao 08/12/2024 10:03:12 AM
--- NOTE | 2024-08-17 12:58 | ONCRAD TMN_ITS ---
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 ID: [id number], Energy: 6X, Dose/Fx (cGy): 200, #Fx: , Dose Correction (cGy): 0, Total Dose Delivered (cGy): 4,600, Start Date: 07/12/2024, Elapsed Days: 36 Reason for visit: The patient is being seen today as part of their regularly scheduled weekly on treatment visits to assess for acute toxicities from radiotherapy. Patient down 3 pounds since last visit. Discussed at length loss of hair and denture placement timeframe. Review of Systems: As above Vital Signs: Performed on 08/17/2024 11:27 AM BMI - 25.118 kg/m2 (high), Height - 72 in, Weight - 185.2 lbs, Temperature - 97.5 f, Pulse - 51 /min (low), Respiration - 20 /min, O2 Sat - 98 %, Pain - 0, Fatigue - 0 and BP - 185/ 86 mm(hg)(high/). Physical Exam: Alert and oriented and answers questions appropriately. Skin intact. Loss of hair and treatment mays. Imaging: Radiation therapy imaging related to accurate target localization (i.e. KV, MV and CBCT) was reviewed. Appropriate changes, if any, were made to ensure treatment accuracy. Plan: Continue XRT Increase calorie count Signed by: Ryan Elena 08/17/2024 12:56:34 PM
== END 2024-08-19 23:59 | disposition home or self-care (01) ==
PROVIDERS: Visit Provider Radiology Radiation Oncology
DX: Z51.0 Encounter for antineoplastic radiation therapy (principal); C04.1 Malignant neoplasm of lateral floor of mouth
CPT/HCPCS: 77336; 77386; 99024

== ENCOUNTER 2024-08-20 10:03 | Oncology outpatient (recurring) (ONCR) | payer OTHER, SELFPAY | END 2024-08-20 23:59 | disposition home or self-care (01) | LOC: ONCMED 10:03 | PROVIDERS: Visit Provider Radiology Radiation Oncology | DX: Z51.0 Encounter for antineoplastic radiation therapy (principal); C04.1 Malignant neoplasm of lateral floor of mouth | CPT/HCPCS: 77336; 77386 ==

== ENCOUNTER 2024-08-26 11:21 | Oncology outpatient (recurring) (ONCR) | payer OTHER, SELFPAY ==
--- NOTE | 2024-08-24 11:49 | ONCRAD TMN_ITS ---
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 ID: [id number], Energy: 6X, Dose/Fx (cGy): 200, #Fx: 28 / 30, Dose Correction (cGy): 0, Total Dose Delivered (cGy): 5,600, Start Date: 07/12/2024, Elapsed Days: 43 Reason for visit: The patient is being seen today as part of their regularly scheduled weekly on treatment visits to assess for acute toxicities from radiotherapy. Review of Systems: Patient denies any significant problems. There is moderate erythema in the treatment portals. No mucositis appreciated Vital Signs: Performed on 08/24/2024 11:31 AM BMI - 25.145 kg/m2 (high), Height - 72 in, Weight - 185.4 lbs, Temperature - 97.2 f, Pulse - 54 /min (low), Respiration - 18 /min, O2 Sat - 98 %, Pain - 7, Fatigue - 0 and BP - 181/ 92 mm(hg)(high). Physical Exam: Alert and oriented and answers questions appropriately. As above. Imaging: Radiation therapy imaging related to accurate target localization (i.e. KV, MV and CBCT) was reviewed. Appropriate changes, if any, were made to ensure treatment accuracy. Plan: Continue XRT Utilize creams to the erythematous areas liberally. Signed by: Ryan Elena 08/24/2024 11:48:08 AM
--- NOTE | 2024-08-26 12:34 | N.ONRD TS_ITS ---
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 ID: [id number], Energy: 6X, Dose/Fx (cGy): 200, #Fx: 30 / 30, Dose Correction (cGy): 0, Total Dose Delivered (cGy): 6,000, Start Date: 07/12/2024, End Date: 08/26/2024, Elapsed Days: 45 Clinical Summary: The patient tolerated RT well. Mild erythema to the portals. Patient using creams. Weight stable Plan: End of treatment today. Continue on the above medication until the skin reaction resolves. Follow up in one month. Signed by: Ryan Elena>08/26/2024 12:33:38 PM <<Signature on File>>
== END 2024-09-20 23:59 | disposition home or self-care (01) ==
PROVIDERS: Visit Provider Radiology Radiation Oncology
DX: Z51.0 Encounter for antineoplastic radiation therapy (principal); C04.1 Malignant neoplasm of lateral floor of mouth
CPT/HCPCS: 77336; 77386; 99024

== ENCOUNTER → 2024-09-20 10:30 | Outpatient (BNVA) | payer OTHER, SELFPAY | PROVIDERS: Visit Provider Nurse Practitioner Family | DX: B35.1 Tinea unguium (principal); L82.1 Other seborrheic keratosis; D18.01 Hemangioma of skin and subcutaneous tissue; L71.8 Other rosacea; L57.8 Other skin changes due to chronic exposure to nonionizing radiation | CPT/HCPCS: 99214 ==

== ENCOUNTER → 2024-10-18 08:01 | Outpatient (BNVA) | payer OTHER, SELFPAY | PROVIDERS: Visit Provider Specialist | DX: M19.012 Primary osteoarthritis, left shoulder (principal) | CPT/HCPCS: 73030; 99214 ==

== ENCOUNTER 2024-10-21 10:52 | Oncology outpatient (recurring) (ONCR) | payer OTHER, SELFPAY ==
--- NOTE | 2024-10-21 11:00 | MRR_ITS ---
PROCEDURE INFORMATION: Exam: MR Left Upper Extremity Joint Without Contrast; Shoulder Exam date and time: 10/21/2024 11:10 AM Age: 63 years old Clinical indication: Prior surgery; Surgery date: 6+ months; Surgery type: 7 shoulder surgeries; PT states hes had left shoulder pain for 45 years, no known injury, 7 surgeries, limited rom. No history of recent trauma or surgery is otherwise provided. TECHNIQUE: Imaging protocol: Magnetic resonance imaging of the left upper extremity without contrast. Exam focused on the shoulder. 187image(s) are provided. COMPARISON: 1. CR XR shoulder LT min 2V* [id number] 10/18/2024 8:03 AM 2. DX XR shoulder LT min 2V* [id number] 10/04/2024 12:07 PM 3. CR XR chest 1V portable [id number] 06/06/2022 6:30 AM. No previous MRI is currently available to evaluate for interval change or stability. FINDINGS: Bones/joints: There is some motion artifact present. There appears to be some subtle susceptibility artifact indicative of previous intervention. No diffuse acute abnormal marrow signal intensity is appreciated. There is a small amount of joint fluid present. There are some subchondral cystic changes present. There is a small amount of fluid of the subacromial and subdeltoid space as well as some of the subscapularis margin. There is some glenohumeral spurring and narrowing with inferior predominance. Glenoid labrum: There is some overall labral edge fraying, degenerative appearance. There is some adjacent ligamentous averaging although some of the areas demonstrates some incomplete visualization as well as some fluid signal which can also be seen with some fissuring, tearing on these non arthrogram views. No acute adjacent marrow signal intensity is currently appreciated. Supraspinatus tendon: Supraspinatus demonstrates some tendinopathy along with articular surface partial-thickness tearing, fraying. There is some subtle increased signal suggestive of some distal focal full-thickness tearing. This includes some signal of the supraspinatus, infraspinatus margin as well as anteriorly. Infraspinatus tendon: Infraspinatus demonstrates some tendinopathy along with some articular surface partial-thickness tearing, fraying. Subscapularis tendon: Subscapularis demonstrates some distal tendinopathy. Teres minor tendon: Teres minor appears grossly intact with some mild tendinopathy. Tendon of biceps brachii: The long head biceps course appears maintained of the bicipital groove. There is some superior tendinopathy appearance along with some associated tendon sheath fluid. There appears to be some subtle irregularity of the superior labral complex insertion. Glenohumeral ligaments: There is slight thickening, irregularity of the joint capsule, ligamentous components suggestive of sprain related sequela with the anterior, superior predominance. Soft tissues: No subcutaneous fluid collections are appreciated. There is a similar overall appearance with distal clavicle irregularity suggestive of injury and could also be seen with some resection related sequela as well as corresponding elevation of the residual component along with some adjacent soft tissue calcifications. This corresponds with some residual distal calcific component adjacent to the acromion margin. This corresponds with the associated plain film descriptions with some underlying slight narrowing. No other significant interval changes are appreciated. MR/MR shoulder LT wo con* [id number] IMPRESSION: 1. There is some tendinopathy appearance of the rotator cuff overall with some articular surface fraying infraspinatus and more pronounced supraspinatus where there appears to be some distal focal full-thickness tearing. Overall, no complete tearing with muscular retraction is appreciated. 2. There appears to be some tendinopathy of the long head biceps tendon superiorly. 3. There are some areas of irregularity, incomplete visualization of the labrum overall and could represent some fissuring, subtle tearing on these non arthrogram views. Consider also if there is history of previous intervention. Consider MRI arthrogram.
== END 2024-11-20 23:59 | disposition home or self-care (01) ==
LOC: ONCMED 10:52 → RAD 10:54 → ONCMED 10:56
PROVIDERS: Visit Provider Specialist
DX: M19.012 Primary osteoarthritis, left shoulder (principal); M67.814 Other specified disorders of tendon, left shoulder
CPT/HCPCS: 73221

== ENCOUNTER → 2024-11-03 14:33 | Outpatient (BNVA) | payer OTHER, SELFPAY | PROVIDERS: PCP Nurse Practitioner Family; Visit Provider Specialist | DX: M19.012 Primary osteoarthritis, left shoulder (principal); M19.011 Primary osteoarthritis, right shoulder; M19.212 Secondary osteoarthritis, left shoulder; S42.022P Displaced fracture of shaft of left clavicle, subsequent encounter for fracture with malunion; X58.XXXD Exposure to other specified factors, subsequent encounter | CPT/HCPCS: 99214 ==

== ENCOUNTER 2024-12-03 12:30 | Oncology outpatient (recurring) (ONCR) | payer OTHER, SELFPAY ==
--- NOTE | 2024-11-23 12:10 | ONCRAD EPV_ITS ---
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 ID: [id number], Energy: 6X, Dose/Fx (cGy): 200, #Fx: 30 / 30, Dose Correction (cGy): 0, Total Dose Delivered (cGy): 6,000, Start Date: 07/12/2024, End Date: 08/26/2024, Elapsed Days: 45 Current History: This is a 64-year-old male who was treated for a lateral floor of mouth completing 6000 cGy in 30 fractions completing this on 08/26/2024. He complains of pain in the left jaw at this time. He was seen by dentist and has some left lower jaw teeth that need treatment. He is not seen his ENT surgeon since completion of treatment Current Medications: [AFO Brace As directed] amlodipine 10 mg PO DAILY cyclobenzaprine 5 mg PO TID PRN diclofenac sodium 1% (Voltaren Arthritis Pain) 2 grams topical QID hydrochlorothiazide 25 mg PO DAILY Held on 11/27/23. Instructions: Order Change hydrocodone-acetaminophen 7.5-325 mg 1 tab PO Q4H PRN 5 days meloxicam 15 mg PO DAILY montelukast (Singulair) 10 mg PO DAILY nicotine apply 1-21 mg NICOTINE PATCH daily for 28 days; follow with 1-14 mg PATCH daily for 14 days, then 1-7mg PATCH daily for 14 days transdermal ondansetron 4 mg PO Q8H PRN oxycodone 10 mg PO Q6H PRN 2 weeks oxycodone-acetaminophen 7.5-325 mg 1 tab PO 6XD pantoprazole 40 mg PO DAILY potassium chloride ER 10 mEq PO DAILY [sunction machine with yaunker As directed] Allergies: bupropion (From Wellbutrin) Allergy (Unknown, Verified 11/03/24 10:15)unknown citalopram Allergy (Unknown, Verified 11/03/24 10:15)unknown fluoxetine (From Prozac) Allergy (Unknown, Verified 11/03/24 10:15)unknown paroxetine (From Paxil) Allergy (Unknown, Verified 11/03/24 10:15)unknown sertraline (From Zoloft) Allergy (Unknown, Verified 11/03/24 10:15)Unknown venlafaxine (From Effexor) Allergy (Unknown, Verified 11/03/24 10:15)Unknown Current Complaints / Review of Systems: . Vital Signs: Performed on 11/23/2024 10:53 AM BMI - 25.498 kg/m2 (high), Height - 72 in, Weight - 188 lbs, Temperature - 98.1 f, Pulse - 55 /min (low), Respiration - 17 /min, O2 Sat - 96 %, Pain - 7, Fatigue - 0 and BP - 165/ 94 mm(hg)(high). Physical Exam: General: Alert and oriented x 3. No acute distress. HEENT: Normocephalic, atraumatic. Extraocular Movements Intact: Pupils Equal, Round, Reactive to Light and Accommodation: Sclerae anicteric. Teeth of poor repair. Tenderness left lower jaw. NECK: Supple without supraclavicular or jugular lymphadenopathy. LUNGS: Clear to auscultation bilaterally without rales, rhonchi or wheeze. HEART: Regular rate and rhythm, normal S1 and S2 without murmur, gallop or rub. MUSCULOSKELETAL: No tenderness or percussion pain over the axial skeleton, scapulae or pelvis. ABDOMEN: Soft, nontender, nondistended without masses or organomegaly. Bowell sounds are present. EXTREMITIES: No peripheral edema is identified. Limited motor and sensory examination are grossly intact and symmetric bilaterally. NEUROLOGIC: Cranial nerves II ???XII are grossly intact. Normal sensation, strength 5/5 in all extremities, normal gait, no ataxia. Performance Status: KPS 80 Lab: None pending. Pathology: Primary, c04.1 - malignant neoplasm of lateral floor of mouth, Diagnosed 07/06/2024 (active) . Imaging: See HPI Impression: Lateral floor mouth SCC PLAN: Make appointment with his ENT surgeon He wishes PET scan was recommended by his surgeon after XRT RTC in 3 months or sooner if need be Dental treatment as indicated. Signed by: 11/23/2024 12:09:25 PM <<Signature on File>> Time spent with patient: 20 minutes CPT Code: CPT Code:
--- NOTE | 2024-12-03 12:30 | PETR_ITS ---
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 Then, PET images were obtained. Attenuation corrected images were constructed using the CT scan. Fused images of PET and CT were reviewed. The standardized uptake values (SUV) reported below are maximum values within a region of interest, expressed in gm/ml. Exam includes orbital meatal line to mid-thigh. SUV normalization method: BodyWeight Radiopharmaceutical: 11.06 mCi F-18 FDG (Fluorodeoxyglucose), IV. Time of imaging post radiopharmaceutical administration: 45 minutes Injection site: RAC COMPARISON: Left shoulder MRI 10/21/2024, CT abdomen pelvis w con* [id number] 07/17/2023 3:41 PM, chest x-ray 06/06/2022 FINDINGS: Brain: Visualized brain has normal physiologic uptake. Pharynx: No abnormal uptake. Larynx: No abnormal uptake. Lungs, pleura and trachea: No abnormal uptake. Mild peripheral bullous versus paraseptal emphysematous changes in the bilateral lung apices are identified. Heart: Normal physiologic uptake. Mediastinal space: No abnormal uptake. Liver: No abnormal uptake. Gallbladder and biliary ducts: No abnormal uptake. Pancreas: No abnormal uptake. Spleen: No abnormal uptake. Adrenal glands: No abnormal uptake. Kidneys and ureters: Normal physiologic uptake. Stomach and bowel: No abnormal uptake. Scattered colonic diverticula are present. Reproductive: Moderate prominence of the prostate gland is noted, without evidence of focal abnormal uptake. Vasculature: No abnormal uptake. There are multifocal regions of atherosclerotic calcification, including within the coronary arteries. Lymph nodes: A precarinal lymph node with a short axis measurement of 9 mm on series 202, image 127 is identified, SUV max 2.6. There are similar borderline prominent retroperitoneal periaortic lymph nodes, for example measuring 1 cm in short axis on the left on series 202, image 217. Skeleton: Uptake in the expected location of the right coracoclavicular ligament is noted, SUV max 3.5 on PET series 301, image 94 without a correlating lesion on the CT images. Uptake within a postoperative tract in the anterior right greater tuberosity is noted, likely related to postoperative inflammatory changes, SUV max 3.2 on image 103. There is chronic appearing abnormal widening of the right acromioclavicular joint measuring 1.5 cm. Fragmentation of the distal left clavicle and left acromion is similar to the prior MRI and may be postoperative and/or posttraumatic without elevated uptake. Inflammatory uptake in the region of the left glenohumeral joint capsule is noted with an SUV max 6.5. Degenerative changes within the spine are noted diffusely. Soft tissues: No abnormal uptake in the visualized head, neck, chest, abdomen, pelvis, and extremities. Surgical clips throughout the left neck are noted without elevated uptake in this region. Asymmetric uptake in the proximal right hamstring tendons is likely inflammatory, SUV max 6.1 on image 306. METRICS: Mediastinal blood pool: SUV max 2.6, SUV mean 2.1 Liver uptake: SUV max 2.3, SUV mean 1.9 PET/PET skull to thigh SUBS [id number] IMPRESSION: 1. No evidence of radiotracer avid malignancy. 2. Left neck postoperative change are identified without evidence of uptake in the operative bed. 3. Borderline prominence of a precarinal lymph node with low-level uptake similar to mediastinal blood pool activity, likely reactive and benign in etiology. A malignant etiology is less likely. 4. Similar non radiotracer avid borderline prominent retroperitoneal lymph nodes. 5. Old appearing posttraumatic and/or postoperative changes of the shoulder regions. 6. Additional nonurgent findings as detailed above.
== END 2024-12-20 23:59 | disposition home or self-care (01) ==
LOC: RAD 12:39 → ONCMED 12-06 09:25
PROVIDERS: PCP Nurse Practitioner Family; Visit Provider Radiology Radiation Oncology
DX: C04.1 Malignant neoplasm of lateral floor of mouth (principal); C04.9 Malignant neoplasm of floor of mouth, unspecified; R59.0 Localized enlarged lymph nodes; Z98.890 Other specified postprocedural states; J43.9 Emphysema, unspecified; K57.30 Diverticulosis of large intestine without perforation or abscess without bleeding; R93.89 Abnormal findings on diagnostic imaging of other specified body structures; I70.90 Unspecified atherosclerosis; I25.10 Atherosclerotic heart disease of native coronary artery without angina pectoris; M47.9 Spondylosis, unspecified; Z53.9 Procedure and treatment not carried out, unspecified reason
CPT/HCPCS: 78815; A9552

== ENCOUNTER → 2024-12-16 10:41 | Outpatient (BNVA) | payer OTHER, SELFPAY | PROVIDERS: PCP Nurse Practitioner Family; Visit Provider Nurse Practitioner Family | DX: B35.1 Tinea unguium (principal); L82.1 Other seborrheic keratosis; D18.01 Hemangioma of skin and subcutaneous tissue; L57.8 Other skin changes due to chronic exposure to nonionizing radiation; Z08 Encounter for follow-up examination after completed treatment for malignant neoplasm; Z85.828 Personal history of other malignant neoplasm of skin; L82.0 Inflamed seborrheic keratosis; L53.8 Other specified erythematous conditions; L29.89 Other pruritus; Z78.9 Other specified health status; R20.8 Other disturbances of skin sensation; L57.0 Actinic keratosis | CPT/HCPCS: 17000; 17110; 99213 ==

== ENCOUNTER 2025-01-25 11:09 | Oncology outpatient (recurring) (ONCR) | payer OTHER, SELFPAY ==
--- NOTE | 2025-01-25 12:39 | ONCRAD EPV_ITS ---
Radiation Oncology Established Patient Visit Patient: Lorenzo Nunn [id number] : 1960 Age: 64 Sex: Male Dictated by: Dr. 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 ID: [id number], Energy: 6X, Dose/Fx (cGy): 200, #Fx: 30 / 30, Dose Correction (cGy): 0, Total Dose Delivered (cGy): 6,000, Start Date: 07/12/2024, End Date: 08/26/2024, Elapsed Days: 45 Current History: He notes ongoing left jaw pain that comes and goes 5 to 6 on 10 scale. He takes an occasional OC in AM for this. Swallowing is difficult as food gets stuck in back of throat. He supplements diet with Ensure. Weight lately has been stable. He would like dentures to aid in chewing and speaking. He would lekie left jaw neve cut or ???killed??? to reduce pain. PET/CT 12/03/2024 was clear and showed no evidence for recurrence. Follow up with Dr. Leroy 12/17/2024 was good with no recurrence seen. He is scheduled to see oral surgeon in [place] 02/14/2025. He is scheduled to see vamp maker in [place] 02/15/2025. He has a follow-up PET/CT scheduled 05/2025. Current Medications: [AFO Brace As directed] amlodipine 10 mg PO DAILY cyclobenzaprine 5 mg PO TID PRN diclofenac sodium 1% (Voltaren Arthritis Pain) 2 grams topical QID hydrochlorothiazide 25 mg PO DAILY Held on 11/27/23. Instructions: Order Change hydrocodone-acetaminophen 7.5-325 mg 1 tab PO Q4H PRN 5 days meloxicam 15 mg PO DAILY montelukast (Singulair) 10 mg PO DAILY nicotine apply 1-21 mg NICOTINE PATCH daily for 28 days; follow with 1-14 mg PATCH daily for 14 days, then 1-7mg PATCH daily for 14 days transdermal ondansetron 4 mg PO Q8H PRN oxycodone 10 mg PO Q6H PRN 2 weeks oxycodone-acetaminophen 7.5-325 mg 1 tab PO 6XD pantoprazole 40 mg PO DAILY potassium chloride ER 10 mEq PO DAILY [sunction machine with yaunker As directed] Allergies: bupropion (From Wellbutrin) Allergy (Unknown, Verified 11/03/24 10:15)unknown citalopram Allergy (Unknown, Verified 11/03/24 10:15)unknown fluoxetine (From Prozac) Allergy (Unknown, Verified 11/03/24 10:15)unknown paroxetine (From Paxil) Allergy (Unknown, Verified 11/03/24 10:15)unknown sertraline (From Zoloft) Allergy (Unknown, Verified 11/03/24 10:15)Unknown venlafaxine (From Effexor) Allergy (Unknown, Verified 11/03/24 10:15)Unknown Current Complaints / Review of Systems: . Vital Signs: Performed on 01/25/2025 11:21 AM BMI - 24.819 kg/m2 (high), Height - 72 in, Weight - 183 lbs, Temperature - 97.6 f, Pulse - 54 /min (low), Respiration - 17 /min, O2 Sat - 100 %, Pain - 6, Fatigue - 0 and BP - 192/ 81 mm(hg)(high/). Physical Exam: General: Alert and oriented x 3. No acute distress. Good voice quality. Thompson has grown back. Oral cavity healthy floor of mouth graft . Good salivation. No mucosal lesions or palpable masses or tenderness. No cervical adenopathy. Performance Status: ECOG PS 0 - 1 Lab: None pending. Pathology: Primary, c04.1 - malignant neoplasm of lateral floor of mouth, Diagnosed 07/06/2024 (active) . Imaging: See HPI Impression: Squamous cell carcinoma of FOM. COTY after surgery and post op radiation. Discussed critical need to quit smoking. Will renew oxycodone. See again after PET/CT 05/2025. Signed by: 01/25/2025 1:28:42 PM <<Signature on File>> Time spent with patient: CPT Code: CPT Code:
== END 2025-02-20 23:59 | disposition home or self-care (01) ==
LOC: ONCMED 11:10
PROVIDERS: PCP Nurse Practitioner Family; Visit Provider Radiology Radiation Oncology
DX: C04.1 Malignant neoplasm of lateral floor of mouth (principal); F17.200 Nicotine dependence, unspecified, uncomplicated
CPT/HCPCS: 99024

== ENCOUNTER → 2025-04-21 13:04 | Outpatient (BNVA) | payer OTHER, SELFPAY | PROVIDERS: PCP Nurse Practitioner Family; Visit Provider Nurse Practitioner Family | DX: B35.1 Tinea unguium (principal); L21.8 Other seborrheic dermatitis; L57.8 Other skin changes due to chronic exposure to nonionizing radiation; L81.4 Other melanin hyperpigmentation; D22.0 Melanocytic nevi of lip; L82.1 Other seborrheic keratosis; Z08 Encounter for follow-up examination after completed treatment for malignant neoplasm; Z85.828 Personal history of other malignant neoplasm of skin; Z92.3 Personal history of irradiation; D48.5 Neoplasm of uncertain behavior of skin | CPT/HCPCS: 11102; 99214 ==

== ENCOUNTER 2025-04-22 13:47 | Oncology outpatient (recurring) (ONCR) | payer OTHER, SELFPAY ==
--- NOTE | 2025-04-22 14:00 | PETR_ITS ---
PROCEDURE INFORMATION: Exam: PET/CT Skull Base to Mid-thigh Exam date and time: 04/22/2025 2:41 PM Age: 64 years old Clinical indication: Condition or disease; Primary cancer: Cancer of the floor of mouth LABS AND CLINICAL REPORTS: Glucose: 86 mg/dl Treatment strategy for malignancy (PET staging): Restaging (PS) TECHNIQUE: Imaging protocol: Following at least four-hour fasting and following the injection of radiopharmaceutical, low dose CT images were obtained. Then, PET images were obtained. Attenuation corrected images were constructed using the CT scan. Fused images of PET and CT were reviewed. The standardized uptake values (SUV) reported below are maximum values within a region of interest, expressed in gm/ml. Exam includes orbital meatal line to mid-thigh. SUV normalization method: BodyWeight Radiopharmaceutical: 10.88 mCi F-18 FDG (Fluorodeoxyglucose), IV. Time of imaging post radiopharmaceutical administration: 43 minutes Injection site: right ac COMPARISON: PT PET skull to thigh SUBS [id number] 12/03/2024 1:49 PM FINDINGS: Brain: Visualized brain has normal physiologic uptake. Pharynx: No abnormal uptake. Larynx: No abnormal uptake. Lungs, pleura and trachea: No abnormal uptake. Heart: Normal physiologic uptake. Mediastinal space: No abnormal uptake. Liver: No abnormal uptake. Gallbladder and biliary ducts: No abnormal uptake. Pancreas: No abnormal uptake. Spleen: No abnormal uptake. Adrenal glands: No abnormal uptake. Kidneys and ureters: Normal physiologic uptake. Stomach and bowel: No abnormal uptake. Vasculature: No abnormal uptake. Lymph nodes: No abnormal uptake. No lymphadenopathy in the head, neck, chest, abdomen, pelvis, and extremities. Skeleton: New hypermetabolic soft tissue in the right anterior tongue/maxilla with ill-defined soft tissue mass measuring approximately 3.4 x 2.9 cm with SUV max of 9.4. Soft tissues: Postsurgical changes in the left neck. No focal metabolic activity in this area. METRICS: Mediastinal blood pool: SUV max = 2.7 Liver uptake: SUV max = 3.2 PET/PET skull to thigh SUBS [id number] IMPRESSION: 1. New FDG ill-defined avid soft tissue at the right anterior tongue/maxilla, concerning for recurrence. 2. No metabolic activity in the operative bed in the left neck. 3. No FDG avid metastatic disease.
== END 2025-04-22 23:59 | disposition home or self-care (01) ==
LOC: ONCMED 13:47
PROVIDERS: PCP Nurse Practitioner Family; Visit Provider Radiology Radiation Oncology
DX: C04.9 Malignant neoplasm of floor of mouth, unspecified (principal); R93.89 Abnormal findings on diagnostic imaging of other specified body structures
CPT/HCPCS: 78815; A9552

== ENCOUNTER 2025-04-27 13:07 | Oncology outpatient (recurring) (ONCR) | payer OTHER, SELFPAY ==
--- NOTE | 2025-04-27 13:53 | ONCRAD EPV_ITS ---
Radiation Oncology Established Patient Visit Patient: Edouard Ventura [id number] : 1960> Age: 64> Sex: Male> Dictated by: Dr. 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 ID: [id number], Energy: 6X, Dose/Fx (cGy): 200, #Fx: 30 / 30, Dose Correction (cGy): 0, Total Dose Delivered (cGy): 6,000, Start Date: 07/12/2024, End Date: 08/26/2024, Elapsed Days: 45 Current History: Patient has been dealing with nerve related pain since his surgery was done back in early 2024. He has visited with multiple different physicians trying to get relief over the intervening months. He is at the point where they were going to proceed with a nerve injection. Apparently he has an area back in his mouth that collects food and is very painful and has remained painful since his surgery. Unfortunately his PET scan which was just done on April 22 shows a new FDG ill-defined avid soft tissue mass at the right anterior tongue/maxilla consistent with recurrence. Current Medications: Allergies: Current Complaints / Review of Systems: . Vital Signs: Performed on 04/27/2025 12:58 PM BMI - 25.796 kg/m2 (high), Height - 72 in, Weight - 190.2 lbs, Temperature - 97.3 f, Pulse - 88 /min, Respiration - 18 /min, O2 Sat - 100 %, Pain - 7, Fatigue - 0 and BP - 179/ 74 mm(hg)(high/). Performance Status: 90 Lab: None pending. Pathology: Primary, c04.1 - malignant neoplasm of lateral floor of mouth, Diagnosed 07/06/2024 (active) . 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 He has signed a release to make sure that we can send them the PET scan results as well as the images. We talked about treatment options at this point would be additional surgery or additional radiation. Will await the report back from the office and [place] to see if surgery is the option he is offered. Signed by: 04/27/2025 1:51:50 PM <<Signature on File>> Time spent with patient:30 CPT Code: CPT Code:
== END 2025-05-22 23:59 | disposition home or self-care (01) ==
LOC: ONCMED 13:08
PROVIDERS: PCP Nurse Practitioner Family; Visit Provider Radiology Radiation Oncology
DX: C04.1 Malignant neoplasm of lateral floor of mouth (principal)
CPT/HCPCS: 99214

== ENCOUNTER 2025-06-13 10:38 | Oncology outpatient (recurring) (ONCR) | payer OTHER, SELFPAY ==
--- NOTE | 2025-05-25 08:59 | ONCRAD EPV_ITS ---
Radiation Oncology Established Patient Visit Patient: Edouard Ventura [id number] : 1960 Age: 64 Sex: Male Dictated by: Dr. 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 ID: [id number], Energy: 6X, Dose/Fx (cGy): 200, #Fx: 30 / 30, Dose Correction (cGy): 0, Total Dose Delivered (cGy): 6,000, Start Date: 07/12/2024, End Date: 08/26/2024, Elapsed Days: 45 Current History: Pt visited with a [employer] OPERATOR in [facility]. He did not see a ENT oncologist. The M[employer] FILTER PR[employer] OPERATOR told him he did not have any recurrence or issues. He continues to have nerve pain from surgery. Is working with pain management. Also has pain on Right side of oral cavity. This area corresponds to findings on PET from [place]. with a new area of uptake in the R anterior tongue. Current Medications: : [AFO Brace As directed] amlodipine 10 mg PO DAILY cyclobenzaprine 5 mg PO TID PRN diclofenac sodium 1% (Voltaren Arthritis Pain) 2 grams topical QID hydrochlorothiazide 25 mg PO DAILY Held on 11/27/23. Instructions: Order Change hydrocodone-acetaminophen 7.5-325 mg 1 tab PO Q4H PRN 5 days meloxicam 15 mg PO DAILY montelukast (Singulair) 10 mg PO DAILY nicotine apply 1-21 mg NICOTINE PATCH daily for 28 days; follow with 1-14 mg PATCH daily for 14 days, then 1-7mg PATCH daily for 14 days transdermal ondansetron 4 mg PO Q8H PRN oxycodone 10 mg PO Q6H PRN 2 weeks oxycodone-acetaminophen 7.5-325 mg 1 tab PO 6XD pantoprazole 40 mg PO DAILY potassium chloride ER 10 mEq PO DAILY [sunction machine with yaunker As directed] Allergies: bupropion (From Wellbutrin) Allergy (Unknown, Verified 11/03/24 10:15)unknown citalopram Allergy (Unknown, Verified 11/03/24 10:15)unknown fluoxetine (From Prozac) Allergy (Unknown, Verified 11/03/24 10:15)unknown paroxetine (From Paxil) Allergy (Unknown, Verified 11/03/24 10:15)unknown sertraline (From Zoloft) Allergy (Unknown, Verified 11/03/24 10:15)Unknown venlafaxine (From Effexor) Allergy (Unknown, Verified 11/03/24 10:15)Unknown Current Complaints / Review of Systems: . Vital Signs: Performed on 05/24/2025 12:54 PM BMI - 26.176 kg/m2 (high), Height - 72 in, Weight - 193 lbs, Temperature - 98.4 f, Pulse - 56 /min (low), Respiration - 18 /min, O2 Sat - 98 %, Pain - 7, Fatigue - 0 and BP - 140/ 90 mm(hg). Physical Exam: General: Alert and oriented x 3. No acute distress. HEENT: Normocephalic, atraumatic. Extraocular Movements Intact: Pupils Equal, Round, Reactive to Light and Accommodation: Sclerae anicteric. Palpation of the oral cavity did not reveal any obvious masses but exam was hindered by Pt???s pain. Area of surgery has increased scar tissue which is tender. NECK: Supple without supraclavicular or jugular lymphadenopathy. LUNGS: respiratory rate is regular and non labored HEART: Regular rate and rhythm ABDOMEN: Pt is thin with minimal adipose tissue. Performance Status: 80 Lab: None pending. Pathology: Primary, c04.1 - malignant neoplasm of lateral floor of mouth, Diagnosed 07/06/2024 (active) . Imaging: See HPI Impression: Cancer of the floor of mouth s/p surgery with resulting nerve injury, followed by XRT Plan: The reason Pt was referred to [facility] was to obtain a biopsy. Since they were less then helpful Pt refuses to return to see them. We talked about options at this point. He refuses any form of chemo or immune therapy. I recommended we repeat the PET. If there is continued growth/changes we talked about additional radiation to the Right side area abnormal on PET. He and his are in agreement. PET ordered. Signed by: 05/25/2025 8:58:48 AM <<Signature on File>> Time spent with patient: CPT Code: CPT Code:
--- NOTE | 2025-05-27 15:00 | PETR_ITS ---
PROCEDURE INFORMATION: Exam: PET/CT Skull Base to Mid-thigh Exam date and time: 05/27/2025 3:35 PM Age: 64 years old Clinical indication: Condition or disease; Primary cancer: Cancer of floor of mouth; Prior surgery; Surgery date: 6+ months; Surgery type: Shoulder LABS AND CLINICAL REPORTS: Glucose: 97 mg/dl Treatment strategy for malignancy (PET staging): Restaging (PS) TECHNIQUE: Imaging protocol: Following at least four-hour fasting and following the injection of radiopharmaceutical, low dose CT images were obtained. Then, PET images were obtained. Attenuation corrected images were constructed using the CT scan. Fused images of PET and CT were reviewed. The standardized uptake values (SUV) reported below are maximum values within a region of interest, expressed in gm/ml. Exam includes orbital meatal line to mid-thigh. SUV normalization method: BodyWeight Radiopharmaceutical: 11.25 mCi F-18 FDG (Fluorodeoxyglucose), IV. Time of imaging post radiopharmaceutical administration: 47 minutes Injection site: right ac COMPARISON: PT PET skull to thigh SUBS [id number] 04/22/2025 2:41 PM FINDINGS: Brain: Visualized brain has normal physiologic uptake. Pharynx: No abnormal uptake. Larynx: No abnormal uptake. Lungs, pleura and trachea: No abnormal uptake. Heart: Normal physiologic uptake. Bqdf-tr-frwqmtpe coronary artery calcifications. Mediastinal space: No abnormal uptake. Liver: No abnormal uptake. Gallbladder and biliary ducts: No abnormal uptake. Pancreas: No abnormal uptake. Spleen: No abnormal uptake. Adrenal glands: No abnormal uptake. Kidneys and ureters: Normal physiologic uptake. Stomach and bowel: No abnormal uptake. Colonic diverticulosis without evidence of diverticulitis. Reproductive: Prostatomegaly with the punctate calcification. No significant FDG uptake. The prostate measures 6.6 cm in maximal transverse dimension. Vasculature: No abnormal uptake. Lymph nodes: No abnormal uptake. No lymphadenopathy in the head, neck, chest, abdomen, pelvis, and extremities. Skeleton: No abnormal uptake in the visualized axial and appendicular skeleton. Chronic fracture deformity of the distal left clavicle. Soft tissues: Postsurgical changes and clips along the left neck. There is no significant FDG uptake in the surgical bed. There is redemonstrated hypermetabolic soft tissue in the right anterior tongue with masslike thickening again noted measuring approximately 3.1 x 2.7 cm, maximum SUV 11.3 (previously 9.4). METRICS: Mediastinal blood pool: Mean SUV of 2.1 Liver uptake: Mean SUV of 2.4 PET/PET skull to thigh [id number] [id number] IMPRESSION: 1. Redemonstrated hypermetabolic soft tissue in the right anterior tongue with masslike thickening again noted. This remains suspicious for disease recurrence. Consider tissue correlation. Dedicated contrast-enhanced MRI may also be considered. 2. There is no significant FDG uptake in the surgical bed along the left neck.
--- NOTE | 2025-05-31 09:23 | ONCRAD EPV_ITS ---
Radiation Oncology Established Patient Visit Patient: Lorenzo Nunn [id number] : 1960 Age: 64 Sex: Male Dictated by: Dr. Olinda Rao Date of Service: 05/31/2025 Referring Physician(s) : Dr. 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 ID: [id number], Energy: 6X, Dose/Fx (cGy): 200, #Fx: 30 / 30, Dose Correction (cGy): 0, Total Dose Delivered (cGy): 6,000, Start Date: 07/12/2024, End Date: 08/26/2024, Elapsed Days: 45 Current History: Pt returns today for results of PET. The PET showed continued recurrence in the right oral tongue. The Staff at [place] failed to biopsy new area. He has refused all chemo options so biopsy is really not needed. Discussed additional XRT to area with increased risks of late side effects reviewed. Pt is concerned if the radiation doesn???t take care of the new area what his options would be. He understands the gravity of the situation and has agreed to proceed with additional treatment. Current Medications: [AFO Brace As directed] amlodipine 10 mg PO DAILY cyclobenzaprine 5 mg PO TID PRN diclofenac sodium 1% (Voltaren Arthritis Pain) 2 grams topical QID hydrochlorothiazide 25 mg PO DAILY Held on 11/27/23. Instructions: Order Change hydrocodone-acetaminophen 7.5-325 mg 1 tab PO Q4H PRN 5 days meloxicam 15 mg PO DAILY montelukast (Singulair) 10 mg PO DAILY nicotine apply 1-21 mg NICOTINE PATCH daily for 28 days; follow with 1-14 mg PATCH daily for 14 days, then 1-7mg PATCH daily for 14 days transdermal ondansetron 4 mg PO Q8H PRN oxycodone 10 mg PO Q6H PRN 2 weeks oxycodone-acetaminophen 7.5-325 mg 1 tab PO 6XD pantoprazole 40 mg PO DAILY potassium chloride ER 10 mEq PO DAILY [sunction machine with yaunker As directed] Allergies: bupropion (From Wellbutrin) Allergy (Unknown, Verified 11/03/24 10:15)unknown citalopram Allergy (Unknown, Verified 11/03/24 10:15)unknown fluoxetine (From Prozac) Allergy (Unknown, Verified 11/03/24 10:15)unknown paroxetine (From Paxil) Allergy (Unknown, Verified 11/03/24 10:15)unknown sertraline (From Zoloft) Allergy (Unknown, Verified 11/03/24 10:15)Unknown venlafaxine (From Effexor) Allergy (Unknown, Verified 11/03/24 10:15)Unknown Current Complaints / Review of Systems: . Vital Signs: Performed on 05/31/2025 8:55 AM BMI - 26.474 kg/m2 (high), Height - 72 in, Weight - 195.2 lbs, Temperature - 98.5 f, Pulse - 60 /min, Respiration - 17 /min, O2 Sat - 98 %, Pain - 7, Fatigue - 0 and BP - 186/ 101 mm(hg)(high). Performance Status: 90 Lab: None pending. Pathology: Primary, c04.1 - malignant neoplasm of lateral floor of mouth, Diagnosed 07/06/2024 (active) . 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 Plan and dose will be dependent of providing coverage with a safe plan. He will undergo sim today. Signed by: 05/31/2025 9:21:24 AM <<Signature on File>> Time spent with patient:30 CPT Code: CPT Code:
--- NOTE | 2025-06-07 11:46 | ONCRAD TMN_ITS ---
Radiation Oncology Weekly Treatment Management Patient: Edouard Cerrato MR#: [id number] : 1960> Attending Physician: Ryan Elena Date of Service: 06/07/2025 Referring Physician(s) : Dr. 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 ID: [id number], Energy: 6X, Dose/Fx (cGy): 200, #Fx: 4 / 15, Dose Correction (cGy): 0, Total Dose Delivered (cGy): 800, Start Date: 06/02/2025, Elapsed Days: 5 Reason for visit: The patient is being seen today as part of their regularly scheduled weekly on treatment visits to assess for acute toxicities from radiotherapy. Review of Systems: Here for reoccurrence of a anterior lateral floor mouth. Intrinsic muscles are involved. We are treating a palliative dose of 3000 cGy in 10 fractions to the right side. Vital Signs: Performed on 06/07/2025 10:34 AM BMI - 25.932 kg/m2 (high), Height - 72 in, Weight - 191.2 lbs, Temperature - 96.9 f, Pulse - 60 /min, Respiration - 18 /min, O2 Sat - 98 %, Pain - 7, Fatigue - 0 and BP - 187/ 98 mm(hg)(high). Physical Exam: AAOx3. Ski and hebert intact Imaging: Radiation therapy imaging related to accurate target localization (i.e. KV, MV and CBCT) was reviewed. Appropriate changes, if any, were made to ensure treatment accuracy. Plan: Cont XRT Signed by: Ryan Elena 06/07/2025 11:45:26 AM
== END 2025-06-13 23:59 | disposition home or self-care (01) ==
PROVIDERS: PCP Nurse Practitioner Family; Visit Provider Radiology Radiation Oncology
DX: Z51.0 Encounter for antineoplastic radiation therapy (principal); C04.1 Malignant neoplasm of lateral floor of mouth
CPT/HCPCS: 77300; 77301; 77334; 77336; 77338; 77386; 78815; 99024; A9552

== ENCOUNTER 2025-06-22 10:32 | Oncology outpatient (recurring) (ONCR) | payer OTHER, SELFPAY ==
--- NOTE | 2025-06-14 11:37 | ONCRAD TMN_ITS ---
Radiation Oncology Weekly Treatment Management Patient: Lroenzo Nunn MR#: [id number] : 1960 Attending Physician: Ryan Elena Date of Service: 06/14/2025 Referring Physician(s) : Dr. 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 ID: [id number], Energy: 6X, Dose/Fx (cGy): 200, #Fx: , Dose Correction (cGy): 0, Total Dose Delivered (cGy): 1,800, Start Date: 06/02/2025, Elapsed Days: 12 Reason for visit: The patient is being seen today as part of their regularly scheduled weekly on treatment visits to assess for acute toxicities from radiotherapy. Review of Systems: Complains of pain in the mouth. He relates pain to be 8 on a 10 point scale. He has a left neck tenderness but is being treated there also. He also complains of xerostomia. Vital Signs: Performed on 06/14/2025 10:50 AM BMI - 26.311 kg/m2 (high), Height - 72 in, Weight - 194 lbs, Temperature - 97.1 f, Pulse - 51 /min (low), Respiration - 17 /min, O2 Sat - 100 %, Pain - 8, Fatigue - 0 and BP - 189/ 89 mm(hg)(high/). Physical Exam: AAOx3. Skin exterior skin intact. Brief hebert intact. Oral cavity exam shows moderate to severe mucositis in the treatment portals. Imaging: Radiation therapy imaging related to accurate target localization (i.e. KV, MV and CBCT) was reviewed. Appropriate changes, if any, were made to ensure treatment accuracy. Plan: Continue XRT Aquaphor spray for the exterior skin Diflucan 200 mg today and 100 mg thereafter till finished, #8, NRF, dispense 100 mg tabs. Xerostomia medicine through hospital pharmacy Rx signed in expanse Signed by: yRan Elena 06/14/2025 11:36:17 AM
--- NOTE | 2025-06-21 11:31 | ONCRAD TMN_ITS ---
Radiation Oncology Weekly Treatment Management Patient: Lorenzo Nunn MR#: [id number] : 1960 Attending Physician: Ryan Elena Date of Service: 06/21/2025 Referring Physician(s) : Dr. 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 ID: [id number], Energy: 6X, Dose/Fx (cGy): 200, #Fx: , Dose Correction (cGy): 0, Total Dose Delivered (cGy): 2,400, Start Date: 06/02/2025, End Date: 06/21/2025, Elapsed Days: 19 Reason for visit: The patient is being seen today as part of their regularly scheduled weekly on treatment visits to assess for acute toxicities from radiotherapy. Review of Systems: Patient admits to pain of 7 on a 10 point scale. He finished his Diflucan yesterday. Exam today shows continue on mild mucositis. He lost 4 pounds since last visit. He will complete treatment next Friday, 27 June. Vital Signs: Performed on 06/21/2025 11:08 AM BMI - 25.769 kg/m2 (high), Height - 72 in, Weight - 190 lbs, Temperature - 98 f, Pulse - 61 /min, Respiration - 18 /min, O2 Sat - 97 %, Pain - 7, Fatigue - 0 and BP - 170/ 100 mm(hg)(high). Physical Exam: AAOx3. Exterior skin intact. Oral cavity exam on the right side shows mild to moderate mucositis remaining. Imaging: Radiation therapy imaging related to accurate target localization (i.e. KV, MV and CBCT) was reviewed. Appropriate changes, if any, were made to ensure treatment accuracy. Plan: Continue XRT Completes treatment on June 27 Renew new prescription of Diflucan and patient recited prescription plans. PET scan toward the end of August 21 part of September has been placed RTC in 2 weeks or sooner if need be. Signed by: Ryan Elena 06/21/2025 11:29:04 AM
== END 2025-06-22 23:59 | disposition home or self-care (01) ==
PROVIDERS: PCP Nurse Practitioner Family; Visit Provider Radiology Radiation Oncology
DX: Z51.0 Encounter for antineoplastic radiation therapy (principal); C04.1 Malignant neoplasm of lateral floor of mouth
CPT/HCPCS: 77336; 77386; 99024